=== PATIENT | female | born 1990 | race Caucasian/White ===

== ENCOUNTER 2016-09-18 21:16 | Emergency (ER) | payer MEDICAID ==
[~2016-09-18] VITALS: Ht 162.6 cm; Wt 66.2 kg
[~2016-09-18 21:16] MED LIST: ALBUTEROL-200 PUFFS/ IH; BENTYL20 M1 PO; BENTYL20 MG PO; CALCIUM 600MG+D1 TAB PO; CIPRO 250MG TA250 MG PO; CIPRO 500MG TA500 MG PO; CLINDAMYCIN HC300 MG PO; CORTISPORIN TC10 ML OT; DOXYCYCLINE HY100 M4 PO; FERROUS SULFATE65 MG PO; FLEXERIL10 MG PO; IMURAN50 M1 PO; IRON TABLETS325 MG PO; K-DUR 2020 MEQ PO; KEFLEX 500MG.500 MG PO; LORTAB 5/500 501 TAB PO; MOTRIN 400MG.400 MG PO; NITROFURANTOIN100 M2 PO; NOMEDS; PERCOCET 5/3251 EACH PO; PHENERGAN 25MG.25 M1 PO; PRENATAL PLUS1 TA1 PO; PREVACID 30MG C30 M1 PO; TESSALON PERLE100 M1 PO; TRAMADOL 50MG T50 MG PO; ULTRACET 325 MG1 TAB PO; VOLTAREN75 MG PO; ZITHROMAX Z PA250 MG PO; ZITHROMAX500 MG PO; ZOFRAN4 MG PO; [UNRECOGNIZED DRUG - OTHER]
[2016-09-18 21:35] LABS: URINE BILIRUBIN - DIPSTICK NEGATIVE (NEG); URINE BLOOD TRACE-LYSED (NEG)
[2016-09-18 21:42] LABS: HEMOGLOBIN 13.8 g/dL (12.2-16.2); LYMPH # 3.1 K/mm3 (0.7-4.5); LYMPH % 28.4 % (10-50.0)
[2016-09-18] MEDS ORDERED: ETODOLAC200 MG PO (23:18)
--- NOTE | 2016-09-18 23:19 | Emergency Room Report ---
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 N Clinical Suspician of Infection? N Mental Status: 1 - Regular (Normal Baseline) Sepsis Risk:Low Sepsis Risk Have you (or family members/close friends) recently traveled outside the [place]? N If Yes, where/when: Have you had exposure to infectious disease within the past month? TB? Other? Specify: Source patient, RN notes reviewed, family, RN/MD Exam Limitations no limitations Comment This is a 26-year-old female patient presenting to the emergency room with LEFT lower quadrant abdominal pain, onset 2 days ago. Patient denies any fever, nausea, vomiting, diarrhea. Patient was advised that recent travel or exposure to sick contacts. She has a history of Crohn's disease. ALLERGIES Coded Allergies: Sulfa (Sulfonamide Antibiotics) (Mild, 09/18/16) cefdinir (Mild, 09/18/16) Penicillins (09/18/16) Home Medications Active Scripts CALCIUM CARBONATE/VITAMIN D3 (Calcium 600 + Vit D 200 Tablet) 1 TAB PO BID #60 TAB Prov: 01/01/16 Potassium Chloride (K-Dur) 20 MEQ PO DAILY #5 TER Prov: 01/01/16 Azithromycin (Zithromycin (Z-LORI) 250MG Tab) 250 MG PO DAILY #6 TAB Prov: 11/24/15 NEOMYCIN DENSON/COLIST/HC/THONZON (Cortisporin-Tc Ear Susp) 10 ML OT QID #10 EACH Prov: 11/24/15 Reported Medications Dicyclomine HCl (Bentyl) 20 MG PO QID History Medical History General CAD? No Angina: No [place]: No Hypertension? No Hyperlipidemia? No CHF? No DVT? No PE? No COPD? No Asthma? Yes Anemia? No GERD? Yes Gastric ulcers? No GI Bleed? No Hernia? No Thyroid Problems? No Hypothyroidism? No CVA? No Seizures? No Diabetes? No Renal Insuffiency? No End Stage Renal Disease? No UTI? Yes Stones? No GB Disease: Yes Nephritic Syndrome? No Asplenia? No Hepatitis? No Sickle Cell Disease? No Arthritis? No Migraines? No Cataracts? No Glaucoma? No MRSA? No HIV? No TB? No Anxiety? No Depression? No Cancer? No More? 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 Family History Family Hx Diabetes Yes CAD Yes Hypertension Yes Hyperlipidemia Yes Cancer Yes TB Yes Social History Smoking Hx Smoker: Current Every Day Smoker Tobacco: Yes Type Cigarettes Packs/day < 1 Pack Alcohol Alcohol: No Review of Systems All Other Systems Reviewed and Negative Gastrointestinal abdominal pain (LLQ) Physical Exam Vital Signs Vital Signs Date Time Temp Pulse Resp B/P Pulse O2 O2 Flow FiO2 Ox Delivery Rate 09/18 2335 18 09/18 2334 89 18 113/75 98 09/19 2123 98.3 129 18 129/86 100 General Appearance normal appearance, WD/WN, mild distress Neck normal inspection, non-tender, supple, full range of motion Respiratory Status Yes: trachea midline, chest symmetrical, non tender chest. No: respiratory distress. Lung Sounds bilateral: normal breath sounds, lungs clear. 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 No Comment Upon reevaluation patient appears medically stable, in minimal distress. Advised patient results obtained, as well as need for her to follow-up with her ObGyn within the next 2-3 days. Results/Orders Laboratory Tests 09/18/16 2130: Sodium 141, Potassium 3.6, Chloride 103, Carbon Dioxide 29, BUN 4 L, Creatinine 0.7, Estimated Creat Clear 127, Estimated GFR (MDRD) 101, Glucose 105, Calcium 9.0, Total Bilirubin 0.3, AST 14 L, ALT 20, Alkaline Phosphatase 98, Total Protein 8.1, Albumin 3.9, Globulin 4.2 H, Albumin/Globulin Ratio 0.9 L, Amylase 99, Lipase 193, WBC 10.8, RBC 4.17 L, Hgb 13.8, Hct 41.8, MCV 100.3 H, RDW 12.2, Plt Count 348, MPV 5.6 L, Gran % 65.7, Gran # 7.1, Lymphocytes % 28.4 , Monocytes % 2.9, Eosinophils % 2.5, Basophils % 0.6, Lymphocytes # 3.1, Monocytes # 0.3, Eosinophils # 0.3, Basophils # 0.1, PUBS MCHC 32.9, MCH 33.0 H 09/18/162119: Urine Color YELLOW, Urine Appearance CLEAR, Urine pH 6.0, Ur Specific [place] <= 1.005, Urine Protein NEGATIVE, Urine Ketones NEGATIVE, Urine Blood TRACE-LYSED, Urine Nitrate NEGATIVE, Urine Bilirubin NEGATIVE, Urine Urobilinogen 0.2, Ur Leukocyte Esterase NEGATIVE, Urine RBC NONE, Urine WBC OCC, Ur Squamous Epith Cells 10-20, Urine Bacteria 1+, Urine Other TRANITIONAL EPI=OCC, Urine Glucose NEGATIVE Current Medication Orders Sig/Tanna Start time Last Medication Dose Route Stop Time Status Admin Hydromorphone HCl 1 MG ONCE ONE 09/18 2329 DC 09/18 IV 09/18 2330 233 Ondansetron HCl 4 MG ONCE ONE 09/18 2329 DC 09/18 IV 09/18 2330 2334 Tramadol HCl 1 LORI ONCE ONE 09/18 2329 DC 09/18 PO 09/18 2330 233 Ondansetron HCl 0 .STK-MED ONE 09/18 2326 DC .ROUTE Tramadol HCl 0 .STK-MED ONE 09/18 2326 DC PO Hydromorphone HCl 0 .STK-MED ONE 09/18 2325 DC .ROUTE Iopamidol 75 ML ONCE ONE 09/18 2244 DCD 09/18 IV 09/18 Sodium Chloride 10 ML ONCE ONE 09/18 2244 DCD 09/18 IV 09/18 Sodium Chloride 10 ML PRN PRN 09/18 2144 DCD IV 09/19 2133 Sodium Chloride 1,000 ML .STK-MED ONE 09/18 2136 DC IV Sodium Chloride 1,000 ML .Q1H1M 09/18 2129 DC 09/18 IV 09/18 Sodium Chloride 10 ML PRN PRN 09/18 2129 DCD IV 09/19 2124 Orders Procedure Date/time Status DIET-NOTHING BY MOUTH 09/[address] ABD & PELVIS W/ CONTRAST 09/18 2204 Active IV SALINE LOCK 09/[address] ABD/PELVIS REQ 09/18 2125 Complete URINALYSIS/COMPLETE 09/18 2124 Complete URINE 09/18 2124 Complete LIPASE 09/18 2124 Complete CBC WITH AUTO DIFF 09/18 2124 Complete CHEM 12 PROFILE 09/18 2124 Complete AMYLASE 09/18 2124 Complete XRAY/CT/US XRAY/CT/US CT abdomen, pelvis CT interpretation by discussed w/radiologist CT Results abnormal Comment See radiologist's report Departure Departure Time of Disposition 2313 Disposition DC Home or Self Care(routine) Clinical Impression Primary Impression: Left ovarian cyst Condition STABLE Referrals Rocco HENDRICKS,Sergo Hernandez MD,Suraj Grant Patient Instructions DI for Ovarian Cyst Additional Instructions Please follow-up with one of the gynecologists listed above, within the next 2-3 days. Discharge Counseling Counseled pt/family regarding diagnosis, test results, medications/RX, home care, follow up needs Comment Please follow-up with one of the gynecologists listed above, within the next 2-3 days. Prescriptions Current Visit Scripts Etodolac 200 MG PO BID PRN pain #20 CAP ED Critical Care Critical Care No at 1890
[2016-09-18 23:34] VITALS: BP 113/75
--- NOTE | 2016-09-20 10:34 | RADIOLOGY REPORT PS360 ---
CT ABD PELVIS W/ CONTRAST ORDERING PHYSICIAN : Jorge Stanton MD PATIENT AGE: 26 years GENDER: Female INDICATION: LLQ ABD [id number] with abdominal pain TECHNIQUE: Helical CT scans in the pelvis with IV contrast. 75 cc [id number] utilized but no oral contrast COMPARISON made to previous CT abdomen pelvis 09/13/2015 FINDINGS Lung bases clear with no acute findings. Heart normal size. Abdomen. Liver unremarkable. Spleen unremarkable. Pancreas satisfactory. Generous size but this reflects young patient. Unchanged as prior studies. Cholecystectomy. No biliary ductal dilatation. Kidneys. No urinary tract calculi. Mild fullness of the right pelvicalyceal system and proximal right ureter compared to the left, but this most likely reflects compression of the right ureter as it enters the pelvis from crossing iliac vessels Pelvis. Anteverted uterus with generous endometrial stripe. Variable density within the endometrium. Question 1.5-2 cm fibroid posterior wall body of uterus. Recommend pelvic ultrasound to correlate There is also a generous 4.2cm height x 2.8 cm AP left ovary. This includes what appears to be a nearly 4 cm cyst Right ovary normal size 2.5 cm with smaller 1.2 cm cyst. Appendix identified and normal. Large bowel, generous stool throughout the colon most prominent increase stool is seen at the sigmoid colon and left colon.. Moderate constipation . Osseous structures intact IMPRESSION-- 1. Mildly enlarged left ovary. It measures up to 4.2 cm and contains a 4 x 2.5 cm left ovarian cyst. Since previous study. 2. Thickened inhomogeneous endometrium. Question, possible 1.5-2 cm fibroid at the posterior myometrium 3. Given the above findings and consider follow-up pelvic ultrasound. 4. Prominent stool is seen at the redundant sigmoid colon with generous stool throughout the left colon. Reflects constipation. I doubt colitis
== END 2016-09-19 00:01 | disposition home or self-care (01) ==
LOC: ER 21:16
PROVIDERS: Emergency Medicine
DX: N83.202 Unspecified ovarian cyst, left side (principal); Z72.0 Tobacco use
CPT/HCPCS: J2405; Q9967

== ENCOUNTER 2016-10-23 07:17 | Day surgery (SDC) | payer MEDICAID ==
[~2016-10-23] VITALS: Ht 162.6 cm; Wt 74.4 kg
[~2016-10-23 07:17] MED LIST changes: +ETODOLAC200 MG PO
[2016-10-23 07:53] LABS: LYMPH # 2.1 K/mm3 (0.7-4.5); LYMPH % 28.3 % (10-50.0)
[2016-10-23 07:58] LABS: BUN 6 mg/dL (7-18); GFR (ESTIMATED) 101 ML/MIN (59-); HEMOGLOBIN 12.3 g/dL (12.2-16.2)
--- NOTE | 2016-10-23 09:31 | Operative Note ---
Procedure/Operative Record Procedure Date of procedure: 10/23/16 Pre-Op Dx: Desire for sterilization Post-Op Dx: Desire for sterilization Procedure performed: Laparoscopic bilateral salpingectomy Surgeon: Dr. Sergo Valiente Retail Sales Vitamin Consultant(s): None Anesthesia: Josee Amaro EBL (ml): 25 Clinical note: She is a 26-year-old 3 para 2 aborta 1 who expressed desire for sterilization. The risks and benefits as well as the irreversibility of bilateral salpingectomy were discussed with the patient prior to surgery. Operative findings: She had a normal-appearing anteverted uterus. The tubes appeared normal. The ovaries were seen and appeared normal.she had described a previous LEFT sided cyst and this had resolved. There was no fluid in the pelvis. The appendix was seen and appeared normal the upper abdomen was normal. The gallbladder had previously been removed. Operative note: She was taken to the operating room where general anesthesia was found be adequate. She was prepped and draped in normal sterile fashion in the semi- lithotomy position. A weighted speculum was placed in the vagina and the anterior lip of the cervix was grasped with a tenaculum. I then placed a Hannah uterine manipulator within the uterine cavity and insufflated the balloon. I injected approximately 10 mL of 0.5 percent ropivacaine around the umbilicus, made a small incision here and inserted a Veress needle into the abdominal cavity. The abdominal cavity was then insufflated with carbon dioxide gas to a pressure of 20 mmHg. I then inserted a 5 mm trocar under direct vision. I injected through and through at the pubic hairline, made a small incision here and inserted an 8 mm trocar under direct vision. I identified the inferior epigastric arteries on the LEFT side, went lateral to these and injected through and through. I made a small skin incision and then inserted a 5 mm trocar in the LEFT lower quadrant under direct vision. The patient's RIGHT tube was grasped close to the cornea and I cut across the tube with Harmonic scalpel. I then grasped the distal end of the tube and using Harmonic scalpel I cut along the meso salpinx. The tube was then removed through the 8 mm trocar site. This was similarly performed on the patient's LEFT side. After inspecting the entire pelvic cavity I then injected approximately 20 mL of 0.5 percent ropivacaine into the pelvis. The secondary trochars were then removed under direct vision and the gas out of the abdomen. The primary trocar was then removed. The 8 mm trocar site was closed deeply with 2-0 Vicryl suture followed by interrupted subcu care 4-0 Monocryl suture. The 5 mm trocar sites were closed with subcuticular 4-0 Monocryl suture. Sterile dressings were applied. The patient tolerated the procedure well and was taken to the recovery room in excellent condition. All sponge instrument and needle counts were correct. Estimated blood loss was less than 25 mL. Conplications: None Specimens: Bilateral fallopian tubes. at [id number]
--- NOTE | 2016-10-23 09:36 | Anesthesia Record ---
Anesthesia Record Part II Discharge time: 1000 Destination: Same day surgery PACU nurse assessment review? Yes Patient is: Awake, Stable Anesthesia complications? No at 0949
--- NOTE | 2016-10-23 09:36 | Anesthesia Record ---
Anesthesia Record Part I Total IV fluids: 800 EBL (ml): 25 Urine Output: 275 Units of blood given: 0 B/P: 120/69 % SaO2: 94 Pulse: 101 Resps: 16 Temp: 98.7 Patient is: Awake, Stable Stable to PACU at: 0930 at 0935
[2016-10-23 15:04] VITALS: BP 113/68
== END 2016-10-23 11:00 ==
LOC: SDC 07:17
PROVIDERS: Nurse Practitioner Obstetrics & Gynecology
PROC: 0UT74ZZ Resection of Bilateral Fallopian Tubes, Percutaneous Endoscopic Approach (ICD-10-PCS; principal; 2016-10-23 08:45)
DX: Z30.2 Encounter for sterilization (principal)
CPT/HCPCS: J2405

== ENCOUNTER 2017-01-26 16:48 | Emergency (ER) | payer MEDICAID ==
[~2017-01-26] VITALS: Ht 162.6 cm; Wt 68.5 kg
[2017-01-26] MEDS ORDERED: MERCAPTOPURINE PO (17:06)
--- NOTE | 2017-01-26 17:17 | Emergency Room Report ---
History of Present Illness Time Seen by [id number] Presenting Problem in Triage Pt arrived:Walked Presenting Problem:STOMACH PAIN, NAUSEA, AND VOMITING SINCE SUNDAY MORNING. 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 N Clinical Suspician of Infection? N Mental Status: 1 - Regular (Normal Baseline) Sepsis Risk:Low Sepsis Risk Have you (or family members/close friends) recently traveled outside the [place]? N If Yes, where/when: Have you had exposure to infectious disease within the past month? N TB? Other? Specify: Patient with cramping diarrhea for the last few days, a little bit of blood in her stool this morning, but not this afternoon; very diffuse abdominal pain, no fever, no vomiting. Sees GI at for Crohn's disease and feels this is a flare up. ALLERGIES Coded Allergies: Sulfa (Sulfonamide Antibiotics) (Mild, 11/04/16) cefdinir (Mild, 11/04/16) Penicillins (11/04/16) Home Medications Active Scripts CALCIUM CARBONATE/VITAMIN D3 (Calcium 600 + Vit D 200 Tablet) 1 TAB PO BID #60 TAB Prov: 01/01/16 Reported Medications Dicyclomine HCl (Bentyl) 20 MG PO QID Mercaptopurine (Mercaptopurine 50MG Tablet) 50 MG PO DAILY #30 History Medical History General CAD? No Angina: No [place]: No Hypertension? No Hyperlipidemia? No CHF? No DVT? No PE? No COPD? No Asthma? Yes Anemia? No GERD? Yes Gastric ulcers? No GI Bleed? No Hernia? No Thyroid Problems? No Hypothyroidism? No CVA? No Seizures? No Diabetes? No Renal Insuffiency? No End Stage Renal Disease? No UTI? Yes Stones? No GB Disease: Yes Nephritic Syndrome? No Asplenia? No Hepatitis? No Sickle Cell Disease? No Arthritis? No Migraines? No Cataracts? No Glaucoma? No MRSA? No HIV? No TB? No Anxiety? No Depression? No Cancer? No More? 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 TUBES TIED Family History Family Hx Diabetes Yes CAD Yes Hypertension Yes Hyperlipidemia Yes Cancer Yes TB No Social History Smoking Hx Smoker: Current Every Day Smoker Tobacco: Yes Type Cigarettes Packs/day < 1 Pack Alcohol Alcohol: No Review of Systems All Other Systems Reviewed and Negative Gastrointestinal see HPI Physical Exam Vital Signs Vital Signs Date Time Temp Pulse Resp B/P Pulse O2 O2 Flow FiO2 Ox Delivery Rate 01/26 1824 81 18 104/70 100 01/26 1701 98.9 104 18 118/76 96 General Appearance normal appearance, WD/WN, no apparent distress Eye Exam - bilateral eye normal exam, bilateral eye PERRL, bilateral eye EOMI Neck normal inspection, non-tender, supple, full range of motion Respiratory Status Yes: trachea midline, chest symmetrical, non tender chest. No: respiratory distress, tender on palpation, use of accessory muscles, pain on inspiration, pain on expiration, productive cough, non productive cough. Lung Sounds bilateral: normal breath sounds, lungs clear. Cardiovascular normal exam, regular rate/rhythm, no peripheral edema, no gallop, no JVD, no murmur, no rub, normal peripheral pulses Gastrointestinal normal bowel sounds, normal exam, soft, no organomegaly, no pulsatile mass, no guarding, no rebound, tenderness (mild tenderness BUQ) Strength 5 Upper Ext (L), 5 Upper Ext (R), 5 Lower Ext (L), 5 Lower Ext (R) Neurologic alert, normal exam, no motor/sensory deficits, oriented x 3 Glascow Coma Scale Glascow Coma Scale Response Value EYE response: 4 Spontaneously 4 MOTOR response: 6 OBEYS 6 VERBAL response: 5 Oriented & Converses 5 Total 15 Skin intact, normal color, warm/dry Medical Decision Making LABS/Meds/Orders Pt receiving controlled substance in ED? No Results/Orders Laboratory Tests 01/26/17 1740: Sodium 140, Potassium 3.3 L, Chloride 105, Carbon Dioxide 28, BUN 5 L, Creatinine 0.7, Estimated Creat Clear 132, Estimated GFR (MDRD) 101, Glucose 105 , Calcium 8.8, Total Bilirubin 0.2, AST 14 L, ALT 15, Alkaline Phosphatase 99, Total Protein 7.1, Albumin 3.5, Globulin 3.6 H, Albumin/Globulin Ratio 1.0 L, Lipase 136, WBC 7.5, RBC 4.07 L, Hgb 13.5, Hct 40.2, MCV 98.8 H, RDW 12.7, Plt Count 300, MPV 6.7 L, Gran % 75.8, Gran # 5.7, Lymphocytes % 15.7, Monocytes % 4.6, Eosinophils % 3.4, Basophils % 0.5, Lymphocytes # 1.2, Monocytes # 0.4, Eosinophils # 0.3, Basophils # 0.0, PUBS MCHC 33.5, MCH 33.1 H 01/26/17 1720: Urine Color YELLOW, Urine Appearance CLEAR, Urine pH 6.0, Ur Specific [place] 1.015, Urine Protein NEGATIVE, Urine Ketones NEGATIVE, Urine Blood 2+ H, Urine Nitrate NEGATIVE, Urine Bilirubin NEGATIVE, Urine Urobilinogen 0.2, Ur Leukocyte Esterase NEGATIVE, Urine RBC 5-10, Urine WBC 3-5, Ur Squamous Epith Cells 5-10, Urine Bacteria 3+, Urine Mucus 4+, Urine Glucose NEGATIVE Current Medication Orders Sig/Tanna Start time Last Medication Dose Route Stop Time Status Admin Sodium Chloride 1,000 ML .Q1H1M 01/26 1800 AC 01/26 IV 01/26 1900 1814 Sodium Chloride 10 ML PRN PRN 01/26 1800 AC IV 01/27 1751 Sodium Chloride 1,000 ML .STK-MED ONE 01/26 1753 DC IV Promethazine HCl 0 .STK-MED ONE 01/26 1752 DC .ROUTE Promethazine HCl 12.5 MG ONCE ONE 01/26 1745 DC 01/26 IV 01/26 1746 1813 Sodium Chloride 10 ML PRN PRN 01/26 1745 AC IV 01/27 1740 Sodium Chloride 25 ML ONCE ONE 01/26 1745 DC IV 01/26 1759 Orders Procedure Date/time Status DIET-NOTHING BY MOUTH 01/[address] ABD & PELVIS W/O CONTRAST 01/[address] ABD/PELVIS REQ 01/26 174 Active IV SALINE LOCK 01/26 174 Active LIPASE 01/26 174 Complete CBC WITH AUTO DIFF 01/26 174 Complete CHEM 12 PROFILE 01/26 1741 Complete CULTURE, URINE 01/26 172 Active URINALYSIS/COMPLETE 01/26 1710 Complete URINE 01/26 1710 Complete XRAY/CT/US XRAY/CT/US CT abdomen, pelvis CT interpretation by reviewed by me ([facility] report reviewed) Time results known: 1846 CT Results c/w Crohn's colitis ascending and transverse colon Departure Departure Time of Disposition 1847 Disposition DC Home or Self Care(routine) Clinical Impression Primary Impression: Crohn's colitis Qualifiers: Digestive disease complication type: without complication Qualified Code: K50.10 - Crohn's disease of large intestine without complications Condition STABLE Referrals Mag Weiner Patient Instructions DI for Crohn's Disease Flare Discharge Counseling Counseled pt/family regarding diagnosis, test results, medications/RX, home care, follow up needs Prescriptions Current Visit Scripts Prednisone (Prednisone 10MG) 10 MG PO BID #20 TAB Ciprofloxacin HCl (Cipro 500MG TAB) 500 MG PO BID #20 TAB PROMETHAZINE HCL (Phenergan 25MG Tab (Geq)) 12.5 MG PO Q6HP PRN N/V #10 TAB ED Critical Care Critical Care No at 1852
[2017-01-26 17:24] LABS: URINE BLOOD 2+ (NEG)
[2017-01-26 17:25] LABS: URINE BILIRUBIN - DIPSTICK NEGATIVE (NEG)
--- OUTSIDE RECORDS SUMMARY | 2017-01-26 17:27 | External Medical Summary Rpt ---
Author Author , JACINTO CASEY Address Unknown Phone .fypio Care Team Providers Care Tax Form Preparer Name Role Phone A Sonali AGRAWAL MD PSC, Pat Unavailable Unavailable Sonali AGRAWAL MD PSC ALLRAN JR BOB, ALLRAN Unavailable Unavailable JR BOB ARNOLD ARLNEE, ARNOLD Unavailable Unavailable ARLENE REESE AAR, REESE Unavailable Unavailable AAR BEINEKE, BEINEKE Unavailable Unavailable WELLS TER, WELLS TER Unavailable Unavailable BESSON HATTIE, BESSON Unavailable Unavailable HATTIE PATEL ALL, PAETL ALL Unavailable Unavailable [facility] Unavailable Unavailable SERVICE, [facility] Unavailable [facility]available [facility] CHIPPS ANAIS & Unavailable Unavailable DUBILIER, [facility] DUBILIER LILO NAGY Unavailable Unavailable NAGY DER, NAGY Unavailable Unavailable AURE FINE, Unavailable Unavailable AURE NAGY [facility] Unavailable Unavailable [facility], [facility] Unavailable Unavailable [facility] [place] PORFIRIO, PORFIRIO Unavailable Unavailable PORFIRIO KARLOS, Unavailable Unavailable PORFIRIO KARLOS PORFIRIO KARLOS, Unavailable Unavailable PORFIRIO KARLOS [facility] Unavailable Unavailable BEHAVIORAL, [facility] Unavailable Unavailable [facility] Unavailable Unavailable FI[facility] AM[facility], FIELD AMB Unavailable Unavailable FIELD AMB, FIELD AMB Unavailable Unavailable FRAGNETO, SARBJIT Y, Unavailable Unavailable FRAGNETO, SARBJIT Y Pat MARIA, CROW, A Unavailable Unavailable M JR PARKER WATKINS, Unavailable Unavailable JR PARKER WATKINS KARY ANABELL, KARY Unavailable Unavailable ANABELL KARY ANABELL, KARY Unavailable Unavailable ANABELL DEBORAH RICARDO C, Unavailable Unavailable DEBORAH RICARDO C [facility] GUERRERO DAYNE, GUERRERO DAYNE Unavailable Unavailable MICHELLE ALMENDAREZ F, Unavailable Unavailable MICHELLE ALMENDAREZ HARPEL NESTOR, HARPEL Unavailable Unavailable NESTOR HARPEL NESTOR, HARPEL Unavailable Unavailable NESTOR LALA SCO, Unavailable Unavailable LALA SCO [facility] Unavailable Unavailable INC, [facility] Unavailable Unavailable HOSPITAL P, [facility], Unavailable Unavailable [facility] MELGOZA TRA, MELGOZA TRA Unavailable Unavailable [facility], [facility] KILPELA JEA, KILPELA Unavailable Unavailable [facility] Unavailable Unavailable [facility], [facility] Unavailable Unavailable [facility] Un[facility], Unavailable Unavailable [facility] VILLAFUERTE, VILLAFUERTE Unavailable Unavailable JACOB MATT, JACOB Unavailable Unavailable MATT JACOB, JERAD B, Unavailable Unavailable JACOB, JERAD B [facility] Unavailable Unavailable SERVICES, [facility] Unavailable Unavailable SERVICES, [facility] MELISSA CHI, MELISSA Unavailable Unavailable ARTI RESENDEZ JR LU, Unavailable Unavailable MCVILMA WIN LU ALICIA DMD ADVENTISM, ALICIA Unavailable Unavailable DMD ADVENTISM ALICIA DMD ADVENTISM, ALICIA Unavailable Unavailable DMD [facility]VENTISM MIDBOE-HENRIK, WILBUR Unavailable Unavailable R, MIDBOE-HENRIK, WILBUR R NIEVES LU, NIEVES LU Unavailable Unavailable LUIS HATTIE, LUIS HATTIE Unavailable Unavailable LUIS HATTIE, LUIS HATTIE Unavailable Unavailable [facility], Un[facility] Unavailable [facility], [facility] ISLAS, ANGELIC F, Unavailable Unavailable ISLAS, ANGELIC F PINEDA KHANG, PINEDA KHANG Unavailable Unavailable PICKLESIMER JR JACINTO, Unavailable Unavailable PICKLESIMER JR JACINTO RENUSCH, RENUSCH Unavailable Unavailable RENUSCH ASHLEY, RENUSCH Unavailable Unavailable ASHLEY SOTINGEANU, Unavailable Unavailable SOTINGEANU SOTINGEANU JONI, Unavailable Unavailable SOTINGEANU JONI [facility] JANN, JANN Unavailable Unavailable STUFFELBEAM, Unavailable Unavailable STUFFELBEAM MANUEL HUIZAR, MANUEL Unavailable Unavailable BELLO JONES, Unavailable Unavailable BELLO VELASQUEZ RUDOLPH M, Unavailable Unavailable ADRIÁN MEYERS [facility] Unavailable Unavailable HOSPITALS, [facility] Unavailable Unavailable ASSIST, [facility] ASSIST [facility], Unavailable Unavailable [facility] # Unavailable Unavailable [id number], [facility] # [id number] [id number] # Unavailable Unavailable [id number], [id number] # [id number] WEHRMAN III LU, Unavailable Unavailable WEHRMAN III LU WEHRMAN III, ERIKA, Unavailable Unavailable WEHRMAN III, ERIKA WELLS SHA, WELLS SHA Unavailable Unavailable BECKY OSCAR, Unavailable Unavailable BECKY AGRAWAL A, TANJA A Unavailable Unavailable Pat AGRAWAL C, TANJA, Unavailable Unavailable A C Purpose Continuity of Care Document - 06-29-2009 through 2016 Problems Code Diagnosis DOS Provider Status [id number] CROHNS 11-24-2016 [place] DISEASE [facility] WITHOUT HOSPITALS COMPLICATIO NS 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 DISEASE PHYSICIANS LARGE ASSIST INTESTINE W/O COMP [id number] UNSPECIFIED 11-04-2016 [facility] CYST RIGHT INC SIDE N939 ABNORMAL 11-04-2016 [facility]TER[facility], VAGINAL PLLC BLEEDING UNSPECIFIED R102 PELVIC AND 11-04-2016 [facility] PERINEAL [facility], PAIN PLLC R1030 LOWER 11-04-2016 [facility] UNSPECIFIED Z0189 ENCOUNTER 10-23-2016 [facility] SPECIFIED SPECIAL EXAMINATION S Z302 ENCOUNTER 10-23-2016 [facility] FOR PHYSICIANS STERILIZATI GROUP ON N8312 CORPUS 10-02-2016 [facility] LUTEUM CYST PHYSICIANS OF LEFT GROUP OVARY R1032 LEFT LOWER 10-02-2016 [facility] QUADRANT PHYSICIANS PAIN GROUP Z3009 ENCOUNTER 10-02-2016 [facility] OT GENERAL PHYSICIANS GROUP ABSTRACT CHECKER&ADV ICE CONTRACEPT [id number] UNSPECIFIED 09-18-2016 [facility] O[facility]IAN [facility], CYST LEFT PLLC SIDE R109 UNSPECIFIED 09-18-2016 [facility] R938 ABNORMAL 09-18-2016 [facility] OT IMAGING ASS SPEC BODY STRCT Z720 TOBACCO USE 09-18-2016 [facility] INC E559 VITAMIN D 07-13-2016 [facility] [id number] CROHNS 07-13-2016 [facility]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 LARGE ASSIST INTESTINE WITH FISTULA E8351 HYPOCALCEMI 01-01-2016 [facility] ORTEGA, [facility] E876 HYPOKALEMIA 01-01-2016 [facility], PLLC R42 DIZZINESS 01-01-2016 [facility], GIDDINESS PLLC [id number] SWIMMERS 11-24-2015 [facility] EAR [facility], BILATERAL PLLC J029 ACUTE 11-24-2015 [facility] PHARYNGITIS [facility], PLLC UNSPECIFIED J72360 UNSPECIFIED 09-13-2015 [facility] ASTHMA [facility] UNCOMPLICAT INC ED R1012 LEFT UPPER 09-13-2015 [facility] QUADRANT [facility], PAIN PLLC J069 ACUTE UPPER 09-05-2015 [facility], RESPIRATORY PLL INFECTION UNSPECIFIED R05 COUGH 09-05-2015 [facility] R12 HEARTBURN 08-30-2015 [facility] Z8719 PERSONAL 08-30-2015 [facility] OTHER DISEASES DIGESTIVE SYSTEM J020 STREPTOCOCC 08-28-2015 [facility] AL PHYSICIANS PHARYNGITIS GROUP K921 MELENA 08-04-2015 [facility] K5900 CONSTIPATIO 06-19-2015 [facility] N PHYSICIANS, UNSPECIFIED PLLC K5909 OTHER 06-19-2015 [facility] CONSTIPATIO [facility] N INC [id number] ADVERSE 06-19-2015 [facility] EFFECT UNS [facility]OS[facility] NARCOTICS INC INITIAL ENCOUNTER R1110 VOMITING 06-04-2015 [facility] UNSPECIFIED [facility] INC R112 NAUSEA WITH 06-04-2015 [facility] UNSPECIFIED IMAGING ASS H6690 OTITIS 06-02-2015 A Sonali AGRAWAL MEDIA [facility] UNSPECIFIED UNSPECIFIED EAR N3000 ACUTE 05-11-2015 A Sonali AGRAWAL CYSTITIS PSC WITHOUT HEMATURIA R300 DYSURIA 05-11-2015 A Sonali AGRAWAL MD PSC 69791 ESOPHAGEAL 12-14-2014 A Sonali AGRAWAL REFLUX PSC 7079 CHRONIC 12-14-2014 A Sonali AGRAWAL ULCER OF [facility] UNSPECIFIED SITE V8533 BODY MASS 12-14-2014 A Sonali AGRAWAL INDEX PSC 33.0-33.9 ADULT V255 INSERTION 10-14-2014 [facility] OF PHYSICIANS [place] [address] THREATENED 09-09-2014 [facility] PREMATURE PHYSICIANS LABOR GROUP ANTEPARTUM 25659 OTH CURRENT 09-09-2014 [facility] MATERNAL [facility] CCE INC W/DELIVERY 650 NORMAL 09-09-2014 [facility] DELIVERY ANESTH OF THE BLUE 55511 FIRST-DEGRE 09-09-2014 [facility] E PERINEAL PHYSICIANS LACERATION GROUP WITH DELIVERY V0251 CARRIER/IDANIA 09-09-2014 [facility] PECTED [facility] CARRIER INC GROUP B STREPTOCOCC V270 OUTCOME OF 09-09-2014 [facility] DELIVERY PHYSICIANS SINGLE GROUP LIVEBORN V221 SUPERVISION 09-02-2014 [facility] OF OTHER PHYSICIANS NORMAL GROUP 79600 OTHER 08-30-2014 [facility] THREATENED [facility]OR, INC ANTEPARTUM 30716 DECR 08-11-2014 [facility] MOVMNTS PHYSICIANS MGMT MOTH GROUP ANTPRTM COND/COMP 54123 ABNORMAL 07-17-2014 [facility] MATERNAL PHYSICIANS GLUCOSE GROUP TOLERANCE ANTEPARTUM V195 FAMILY 07-09-2014 [facility] ANOMALIES 59249 DEHYDRATION 06-29-2014 [facility] INC 490 BRONCHITIS 06-29-2014 [facility] P ACUTE OR CHRONIC 17803 VOMITING 06-29-2014 [facility] P 40571 DIARRHEA 06-29-2014 [facility] P V222 06-29-2014 [facility] P 4660 ACUTE 06-26-2014 [facility] BRONCHITIS [facility] P 36296 ASTHMA, 06-26-2014 [facility] UNSPECIFIED [facility] P UNSPECIFIED STATUS V140 PERSONAL 06-26-2014 [facility] HISTORY OF [facility] ALLERGY TO [facility] P PENICILLIN V1582 PERS HX 06-26-2014 [facility] TOBACCO USE [facility] P HAZARDS HEALTH V220 SUPERVISION 06-22-2014 [facility] OF NORMAL PHYSICIANS FIRST GROUP 94553 OTH CURRENT 06-08-2014 [facility] MAT CONDS [facility] CLASSIFIABL INC E ELSW ANTPRTM 83917 OTHER 03-25-2014 [facility] SPECIFED N EMERGENCY COMPLICATIO PHYS N ANTEPARTUM 6826 CELLULITIS 03-25-2014 [facility] AND ABSCESS N EMERGENCY OF LEG PHYS EXCEPT FOOT 95056 OTHER 03-25-2014 [facility] CONVULSIONS [facility] INC 48146 EXCESS 01-26-2014 [facility] NESTOR GROWTH AFFECT MGMT MOTH ANTPRTM V2889 OTHER 01-19-2014 [facility] NESTOR SPECIFIED SCREENING V7231 ROUTINE 01-19-2014 [facility] NESTOR GYNECOLOGIC AL EXAMINATION 7804 DIZZINESS 11-04-2013 KARY ANABELL AND GIDDINESS 19559 ABDOMINAL 11-04-2013 [facility] PAIN OTHER KARLOS SPECIFIED SITE V4589 OTHER 11-04-2013 POR[facility]IO POSTSURGICA KARLOS L STATUS OTHER 4659 ACUTE URIS 10-07-2013 LUIS HATTIE OF UNSPECIFIED SITE 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 04220 DECREASED 12-14-2011 [facility] 85425 ABDOMINAL 09-04-2011 [place] [facility], SERV GENERALIZED [facility]OUNDATION 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 52819 LATERAL 08-16-2011 [place] EPICONDYLIT COMM[facility]TIY IS OF [facility]ITA V7283 OTHER 08-15-2011 [place] SPECIFIED COMMUNITY PRE-OPERATI HOSPITA VE EXAMINATION 7295 PAIN IN 08-04-2011 [facility] SOFT [facility] TISSUES OF S PLC LIMB 4619 ACUTE 06-17-2011 [facility] SINUSITIS, EMERGENCY UNSPECIFIED SERVICES 7937 NONSPC ABN 05-09-2011 [facility] FINDNG RAD MEDICAL & OTH EXM IMAGING ASS MUSCULSKELT L SYS 8409 SPRAIN&STRA 05-09-2011 [facility] IN UNSPEC EMERGENCY SITE SERVICES SHOULDER&UP PER ARM E8889 UNSPECIFIED 05-09-2011 [facility] 88378 UNSPEC 04-04-2011 Pat FONSECA MD PSC BURSAE&TEND ONS SHOULDER REGION 14418 PAIN IN 03-30-2011 [facility] JOINT, MEDICAL SHOULDER IMAGING ASS REGION 09550 NAUSEA 03-27-2011 [facility] ALONE [facility] 6259 UNSPEC 03-16-2011 [place] [facility] SYMPTOM SERV ASSOC F[facility]AT[facility] W/FEMALE GENITAL ORGANS 6202 OTHER AND 03-07-2011 [facility] UNSPECIFIED MEDICAL OVARIAN IMAGING ASS CYST 6264 IRREGULAR 03-07-2011 [facility]STRUAL [facility] CYCLE INC 6253 DYSMENORRHE 02-26-2011 [facility] A [facility] INC 6268 OTH D/O 02-26-2011 [facility] MENSTRUATIO EMERGENCY N&OTH ABN SERVICES BLEED FE GNT TRACT 50364 NAUSEA WITH 02-13-2011 [place] [facility] VOMIT[facility] SERV FOUND[facility] 7030 INGROWING 02-09-2011 LUIS HATTIE NAIL 8472 LUMBAR 02-09-2011 LUIS HATTIE SPRAIN AND STRAIN 82052 ATROPHIC 02-06-2011 [facility] GASTRITIS ANAIS & WITHOUT DUBILIER MENTION OF HEMORRHAGE 59004 OTHER SPEC 02-06-2011 [place] [facility]STRITIS SERV WITHOUT FOUNDATIO MENTION HEMORRHAGE 5781 BLOOD IN 02-06-2011 [place] [facility] STOOL [facility] 7873 FLATULENCE 02-06-2011 [place] [facility] ERUCTATION SERV AND GAS FOUNDATIO PAIN 90389 ABDOMINAL 02-06-2011 [place] [facility] PA[facility], SERV UNSPECIFIED FOUNDATIO SITE 7231 CERVICALGIA 01-30-2011 [facility] 7234 BRACHIAL 01-30-2011 [facility] NEURITIS OR [facility] HOS[facility] INC RADICULITIS NOS 35585 PAIN IN 01-23-2011 [facility] JO[facility], EMERGENCY FOREARM SERVICES 71355 PAIN IN 01-23-2011 [facility] JOINT, HAND MEM HOS[facility] INC 29594 SPRAIN AND 01-23-2011 [facility] STRAIN OF UNSPECIFIED SITE OF WRIST 27111 UNSPECIFIED 12-27-2010 Pat AGRAWAL MD PSC CONJUNCTIVI TIS 3829 UNSPECIFIED 12-11-2010 [facility]Y MEDIA SERVICES 5210 DENTAL 12-08-2010 [facility] DMD CARIES [facility] 45761 ABDOMINAL 11-24-2010 [facility], MEDICAL PERIUMBILIC IMAGING ASS 7242 LUMBAGO 09-27-2010 Pta AGRAWAL MD PSC 7245 UNSPECIFIED 09-22-2010 [facility] BACKACHE EMERGENCY SERVICES 7241 PAIN IN 09-14-2010 [facility] THORACIC [facility] SPINE IMAGING ASS 77019 OTHER CHEST 09-14-2010 [facility] V242 ROUTINE 12-30-2009 [facility] SERV FOLLOW-UP FOUNDATIO 5990 URINARY 12-25-2009 [facility] TRACT EMERGENCY INFECTION SERVICES SITE NOT ASSOCIATES SPECIFIED 81388 PREMATURE 11-09-2009 [facility] RUPTURE SERV MEMBRANES FOUNDATIO DELIVERED 93624 FORCEPS/EXT 11-09-2009 [facility] RACTOR DEL SERV W/O FOUNDATIO INDICATION- DELIVERED V2389 SUPERVISION 11-09-2009 [facility]ICAL OF OTHER SERV HIGH-RISK FOUNDATIO 54316 THREATENED 10-13-2009 [facility] PRE[facility] AMBULANCE LABOR SERVICE UNSPEC EPIS CARE 591 HYDRONEPHRO 10-12-2009 [facility] SIS SERV FOUNDATIO 52489 UNSPECIFIED 10-12-2009 [facility] RENAL DISEASE 04517 INFECTIONS 09-27-2009 [facility]ICAL OF SERV GENITOURINA FOUNDATIO RY TRACT ANTEPARTUM 30895 BN&JNT D/O 09-22-2009 [facility] MAT BACK SERV PELVIS&LW FOUNDATIO LIMBS ANTEPARTUM 54726 HYPEREMESIS 09-16-2009 [facility] SERV W/METAB FOUNDATIO DISTURBANCE ANTPRTM 91479 LATE 09-16-2009 [facility] ANTEPARTUM 09946 ABDOMINAL 09-16-2009 [facility] UPPER QUADRANT 93332 ABDOMINAL 09-16-2009 [facility] EPIGASTRIC 0088 INTESTINAL 08-02-2009 [facility] DUE TO OTHER ORGANISM NEC 7802 SYNCOPE AND 06-29-2009 [facility] E83.51 HYPOCALCEMI A 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, BILATERAL J02.9 ACUTE PHARYNGITIS , UNSPECIFIED J06.9 ACUTE UPPER RESPIRATORY INFECTION, UNSPECIFIED N83.202 UNSPECIFIED OVARIAN CYST, LEFT SIDE N93.9 ABNORMAL UTERINE AND VAGINAL BLEEDING, UNSPECIFIED R10.2 PELVIC AND PERINEAL PAIN R10.9 UNSPECIFIED ABDOMINAL PAIN R11.10 VOMITING, UNSPECIFIED R42 DIZZINESS AND GIDDINESS Medications Na ND Rx Da Fi Fi Am Da Di Ph RX Ph St me C No te ll ll ou ys ag ar # ys at rm s nt no ma ic us Or Da si cy ia de te s n re d ## 06 07 30 30 00 WA Ac ## -2 -2 .0 00 L- ti ## 3- 8- 00 08 MA ve ## 20 20 84 RT ## 17 17 00 # 40 PH AR MA CY #5 91 DI 00 06 07 12 30 00 WA Ac CY 52 -2 -2 0. 00 L- ti CL 71 3- 8- 00 07 MA ve OM 28 20 20 0 49 RT IN 20 17 17 53 E 1 45 PH 20 AR MA MG CY TA #5 BL 91 ET DI 00 05 06 12 30 00 RI Ac CY 37 -2 -2 0. 00 TE ti CL 81 3- 3- 00 01 ve OM 62 20 20 0 18 AI IN 00 17 17 51 D E 1 50 PH 20 AR MA MG CY TA #3 BL 93 ET 8 ME 00 05 06 30 30 00 RI Ac RC 05 -2 -2 .0 00 TE ti AP 44 3- 3- 00 01 ve TO 58 20 20 18 AI PU 11 17 17 51 D RI 1 49 PH NE AR MA 50 CY MG #3 93 TA 8 BL ET RA 11 05 06 30 30 00 RI Ac 82 -1 -0 .0 00 TE ti 25 0- 9- 00 01 ve TA 11 20 20 18 AI NE 21 17 17 33 D N 0 68 PH D3 AR MA 2, CY 00 0 #3 UN 93 IT 8 SF GL HY 00 04 06 [address] 40 -2 -0 .0 00 TE ti OC 60 8- 2- 00 01 ve OD 12 20 20 18 AI ON 40 17 17 19 D -A 1 58 PH CE AR TA MA NE CY NO PH #3 93 7. 8 5- 32 5 DI 00 04 05 12 30 00 RI Ac CY 37 -2 -2 0. 00 TE ti CL 81 3- 6- 00 01 ve OM 62 20 20 0 17 AI IN 00 17 17 66 D E 1 07 PH 20 AR MA MG CY TA #3 BL 93 ET 8 OX 13 04 05 30 3 00 CL Ac YC 10 -2 -2 .0 00 IN ti OD 70 4- 6- 00 00 IC ve ON 04 20 20 42 E- 40 17 17 89 PH AC 1 85 AR ET MA AM CY IN OP HE N 5- 32 5 IN 65 04 05 30 5 00 RI Ac OM 16 -2 -2 .0 00 TE ti ET 20 0- 6- 00 01 ve ARRIAGA 52 20 20 18 AI ZI 11 17 17 07 D NE 0 53 PH AR 25 MA CY MG #3 TA 93 BL 8 ET ET 60 03 04 20 10 00 WA Ac OD 50 -2 -2 .0 00 L- ti OL 50 1- 1- 00 07 MA ve AC 03 20 20 47 RT 90 17 17 75 20 1 89 PH 0 AR MG MA CY CA PS #5 UL 91 E DI 00 03 04 12 30 00 RI Ac CY 37 -2 -2 0. 00 TE ti CL 81 2- 1- 00 01 ve OM 62 20 20 0 17 AI IN 00 17 17 66 D E 1 07 PH 20 AR MA MG CY TA #3 BL 93 ET 8 IN 10 02 03 30 7 00 RI Ac OM 70 -2 -3 .0 00 TE ti ET 20 7- 1- 00 01 ve ARRIAGA 00 20 20 17 AI ZI 30 17 17 16 D NE 1 50 PH AR 25 MA CY MG #3 TA 93 BL 8 ET CI 00 02 03 20 10 00 RI Ac IN 14 -1 -2 .0 00 TE ti OF 39 7- 4- 00 01 ve LO 92 20 20 17 AI XA 80 17 17 16 D CI 1 47 PH N AR HC MA L CY 50 0 #3 MG 93 8 TA B PH 42 02 03 30 10 00 RI Ac EN 19 -1 -2 .0 00 TE ti AZ 20 7- 4- 00 01 ve OP 80 20 20 17 AI YR 20 17 17 16 D ID 1 48 PH IN AR E MA 20 CY 0 MG #3 93 TA 8 B IN 10 02 03 30 7 00 RI Ac OM 70 -1 -2 .0 00 TE ti ET 20 7- 4- 00 01 ve ARRIAGA 00 20 20 17 AI ZI 30 17 17 16 D NE 1 50 PH AR 25 MA CY MG #3 TA 93 BL 8 ET DI 00 02 03 12 30 00 RI Ac CY 37 -2 -2 0. 00 TE ti CL 81 2- 4- 00 01 ve OM 62 20 20 0 17 AI IN 00 17 17 23 D E 5 99 PH 20 AR MA MG CY TA #3 BL 93 ET 8 64 02 03 4. 28 00 RI Ac T 38 -1 -1 00 00 TE ti D2 00 3- 7- 0 01 ve 73 20 20 16 AI 1. 70 17 17 72 D 25 6 16 PH AR MG MA CY (5 0, #3 00 93 0 8 UN IT ) AZ 68 02 03 90 30 00 RI Ac AT 46 -1 -1 .0 00 TE ti HI 20 0- 7- 00 01 ve OP 50 20 20 16 AI RI 20 17 17 65 D NE 1 33 PH AR 50 MA CY MG #3 TA 93 BL 8 ET DI 00 01 03 12 30 00 RI Ac CY 37 -2 -0 0. 00 TE ti CL 81 6- 3- 00 01 ve OM 62 20 20 0 16 AI IN 00 17 17 91 D E 5 51 PH 20 AR MA MG CY TA #3 BL 93 ET 8 AZ 68 01 02 90 30 00 RI Ac AT 46 -1 -1 .0 00 TE ti HI 20 2- 7- 00 01 ve OP 50 20 20 16 AI RI 20 17 17 65 D NE 1 33 PH AR 50 MA CY MG #3 TA 93 BL 8 ET 64 01 02 4. 28 00 RI Ac T 38 -1 -1 00 00 TE ti D2 00 7- 7- 0 01 ve 73 20 20 16 AI 1. 70 17 17 72 D 25 6 16 PH AR MG MA CY (5 0, #3 00 93 0 8 UN IT ) RA 11 01 02 30 30 00 RI Ac 82 -1 -1 .0 00 TE ti 25 7- 7- 00 01 ve TA 11 20 20 16 AI NE 21 17 17 72 D N 0 19 PH D3 AR MA 2, CY 00 0 #3 UN 93 IT 8 SF GL DI 00 12 01 12 30 00 RI Ac CY 37 -2 -2 0. 00 TE ti CL 81 8- 7- 00 01 ve OM 62 20 20 0 16 AI IN 00 16 17 43 D E 1 56 PH 20 AR MA MG CY TA #3 BL 93 ET 8 ## 02 01 30 30 00 WA Ac ## -0 -0 .0 00 L- ti ## 8- 9- 00 08 MA ve ## 20 20 83 RT ## 16 17 32 # 54 PH AR MA CY #5 91 TR 65 10 10 0 24 6 WA 44 WR Ac AM 16 -2 -2 .0 L- 97 IG ti AD 20 5- 5- 00 MA 15 HT ve OL 61 20 20 RT 1 -A 71 11 11 AR CE 0 PH DY TA AR C NE MA NO CY PH # N 37 10 .5 05 -3 91 25 DI 00 08 10 5 90 30 WA 71 PE Ac CY 52 -1 -1 .0 L- 30 NA ti CL 71 5- 8- 00 MA 98 ve OM 28 20 20 RT 0 ADRIANO IN 20 11 11 IS E 1 PH R 20 AR MA MG CY # TA BL 10 ET 05 91 TR 65 10 10 1 24 6 SD 44 WR Ac AM 16 -0 -1 .0 L- 96 IG ti AD 20 4- 5- 00 MA 66 HT ve OL 61 20 20 RT 5 -A 71 11 11 AR CE 0 PH DY TA AR C NE MA NO CY PH # N 37 10 .5 05 -3 91 25 TR 65 10 10 1 24 6 WA 44 WR Ac AM 16 -0 -0 .0 L- 96 IG ti AD 20 4- 4- 00 MA 66 HT ve OL 61 20 20 RT 5 -A 71 11 11 AR CE 0 PH DY TA AR C NE MA NO CY PH # N 37 10 .5 05 -3 91 25 DI 00 09 09 0 30 15 WA 71 WR Ac CL 78 -2 -2 .0 L- 36 IG ti OF 11 7- 7- 00 MA 70 HT ve EN 78 20 20 RT 9 AC 70 11 11 AR 1 PH DY SO AR C D MA DR CY # 50 10 MG 05 91 TA B NO 00 09 09 0 30 30 WA 71 PE Ac RT 09 -2 -2 .0 L- 36 NA ti RI 30 6- 6- 00 MA 54 ve PT 81 20 20 RT 7 ADRIANO YL 10 11 11 IS IN 1 PH R E AR HC MA L CY 25 # MG 10 05 CA 91 P DI 00 08 09 5 90 30 WA 71 PE Ac CY 52 -1 -1 .0 L- 30 NA ti CL 71 5- 5- 00 MA 98 ve OM 28 20 20 RT 0 ADRIANO IN 20 11 11 IS E 1 PH R 20 AR MA MG CY # TA BL 10 ET 05 91 DI 16 08 08 0 14 7 WA 71 GA Ac CL 57 -2 -2 .0 L- 32 IN ti OF 10 8- 9- 00 MA 92 EY ve EN 20 20 20 RT 5 AC 11 11 11 NE 0 PH CH SO AR AE D MA L EC CY S # 75 10 MG 05 91 TA B IN 37 08 08 1 30 30 WA 88 PE Ac IL 00 -1 -1 .0 L- 18 NA ti OS 00 7- 7- 00 MA 58 ve EC 45 20 20 RT 0 ADRIANO 50 11 11 IS OT 4 PH R C AR 20 MA .6 CY # MG 10 TA 05 BL 91 ET DI 00 08 08 5 90 30 WA 71 PE Ac CY 52 -1 -1 .0 L- 30 NA ti CL 71 5- 5- 00 MA 98 ve OM 28 20 20 RT 0 ADRIANO IN 20 11 11 IS E 1 PH R 20 AR MA MG CY # TA BL 10 ET 05 91 00 08 08 0 30 30 WA 71 MO Ac 37 -1 -1 .0 L- 30 SE ti 80 1- 1- 00 MA 62 S ve 77 [address] 19 11 11 EP 3 PH HE AR N MA A CY # 10 05 91 00 07 07 0 45 15 WA 44 MO Ac 40 -2 -2 .0 L- 95 SE ti 60 6- 6- 00 MA 19 S ve 35 [address] 80 11 11 EP 1 PH HE AR N MA A CY # 10 05 91 IN 00 07 07 0 14 7 WA 71 MO Ac ED 59 -2 -2 .0 L- 28 SE ti NI 15 6- 6- 00 MA 37 S ve SO 44 [address] NE 30 11 11 EP 1 PH HE 20 AR N MA A MG CY # TA BL 10 ET 05 91 MO 65 06 07 0 1. 1 WA 71 PE Ac 64 -2 -2 00 L- 24 NA ti IN 90 7- 1- 0 MA 90 ve EP 20 20 20 RT 1 ADRIANO 17 11 11 IS PO 5 PH R WD AR ER MA CY PA # CK ET 10 05 91 CI 61 06 06 0 5. 6 WA 71 MO Ac IN 31 -2 -2 00 L- 24 SE ti OF 40 8- 8- 0 MA 99 S ve LO 65 [address] XA 60 11 11 EP CI 5 PH HE N AR N 0. MA A 3% CY # EY E 10 DR 05 OP 91 FL 00 06 06 0 16 30 WA 71 RI Ac UT 05 -1 -1 .0 L- 23 SH ti IC 43 6- 6- 00 MA 46 ER ve 27 20 20 RT 1 ON 09 11 11 RI E 9 PH CH IN AR AR OP MA D CY 50 # MC 10 G 05 SP 91 RA Y BR 60 06 06 0 12 2 SD 71 RI Ac OM 43 -1 -1 0. L- 23 SH ti FE 20 6- 6- 00 MA 46 ER ve D 83 20 20 0 RT 2 DM 70 11 11 RI 4 PH CH CO AR AR UG MA D H CY SY # RU P 10 05 91 ME 00 06 06 0 21 6 WA 71 RI Ac TH 60 -1 -1 .0 L- 23 SH ti YL 34 6- 6- 00 MA 46 ER ve IN 59 20 20 RT 3 ED 31 11 11 RI NI 5 PH CH SO AR AR LO MA D NE CY 4 # MG 10 05 DO 91 SE PK CE 68 06 06 0 40 10 WA 71 GR Ac PH 18 -1 -1 .0 L- 22 AY ti AL 00 2- 3- 00 MA 96 ve EX 12 20 20 RT 2 RO IN 20 11 11 BE 1 PH RT 50 AR B 0 MA MG CY # CA PS 10 UL 05 E 91 CL 63 04 04 0 28 7 SD 71 MC Ac IN 30 -1 -1 .0 L- 15 IL ti DA 40 5- 5- 00 MA 40 VA ve MY 69 20 20 RT 2 IN CI 20 11 11 N 1 PH JA HC AR SO L MA N 15 CY J 0 # MG 10 CA 05 PS 91 UL E IN 68 04 04 0 15 3 SD 71 MC Ac OM 38 -1 -1 .0 L- 15 IL ti ET 20 5- 5- 00 MA 40 VA ve ARRIAGA 04 20 20 RT 0 IN ZI 10 11 11 NE 1 PH JA AR SO 25 MA N CY J MG # TA 10 BL 05 ET 91 ME 00 04 04 0 21 6 SD 71 MC Ac TH 60 -1 -1 .0 L- 15 IL ti YL 34 5- 5- 00 MA 39 VA ve IN 59 20 20 RT 8 IN ED 31 11 11 NI 5 PH JA SO AR SO LO MA N NE CY J 4 # MG 10 05 DO 91 SE PK 00 04 04 0 20 1 SD 44 MC Ac 40 -1 -1 .0 L- 93 IL ti 60 5- 5- 00 MA 07 VA ve 35 20 20 RT 3 IN 70 11 11 5 PH JA AR SO MA N CY J # 10 05 91 00 04 04 0 20 1 WA 44 MC Ac 40 -1 -1 .0 L- 93 IL ti 60 5- 5- 00 MA 07 VA ve 35 20 20 RT 3 IN 70 11 11 5 PH JA AR SO MA N CY # 10 05 91 BA 00 03 03 1 25 18 WA 71 WR Ac CL 83 -2 -2 .0 L- 13 IG ti OF 21 9- 9- 00 MA 11 HT ve EN 02 20 20 RT 6 40 11 11 AR 10 9 PH DY AR C MG MA CY TA # BL ET 10 05 91 00 03 03 0 12 2 WA 44 GR Ac 40 -2 -2 .0 L- 92 AY ti 60 4- 4- 00 MA 60 ve 35 20 20 RT 5 RO 70 11 11 BE 5 PH RT AR B MA CY # 10 05 91 00 03 03 0 15 5 WA 71 GR Ac 37 -2 -2 .0 L- 12 AY ti 80 4- 4- 00 MA 50 ve 75 20 20 RT 9 RO 19 11 11 BE 3 PH RT AR B MA CY # 10 05 91 60 06 06 0 12 3 WA 70 MO Ac 25 -2 -2 0. L- 76 SE ti 80 9- 9- 00 MA 61 S ve 23 [address] 91 10 10 EP 6 PH HE AR N MA A CY # 10 05 91 59 06 06 5 8. 16 WA 70 MO Ac 31 -2 -2 50 L- 76 SE ti 00 9- 9- 0 MA 61 S ve 57 [address] 92 10 10 EP 0 PH HE AR N MA A CY # 10 05 91 00 06 06 2 30 30 WA 70 MO Ac 00 -2 -2 .0 L- 76 SE ti 60 9- 9- 00 MA 61 S ve 11 [address] 73 10 10 EP 1 PH HE AR N MA A CY # 10 05 91 CE 00 06 06 2 30 30 WA 88 MO Ac TI 37 -2 -2 .0 L- 16 SE ti RI 83 9- 9- 00 MA 20 S ve ZI 63 [address] NE 70 10 10 EP 1 PH HE HC AR N L MA A 10 CY # MG 10 TA 05 BL 91 ET CI 55 06 06 0 6. 3 WA 70 WE Ac IN 11 -2 -2 00 L- 76 HR ti OF 10 6- 7- 0 MA 31 MA ve LO 12 20 20 RT 5 N XA 60 10 10 II CI 1 PH I N AR WI HC MA LL L CY IA 25 # M 0 E MG 10 05 TA 91 B DO 00 05 05 0 60 30 WA 88 No Ac CU 53 -1 -1 .0 L- 15 t ti SA 63 2- 3- 00 MA 98 Av ve TE 75 20 20 RT 6 ai 70 10 10 la SO 1 PH bl DI AR e UM MA CY 25 # 0 MG 10 05 CA 91 PS UL E IN 65 05 05 5 30 30 WA 70 No Ac EN 16 -1 -1 .0 L- 70 t ti AT 20 2- 3- 00 MA 56 Av ve AL 66 20 20 RT 5 ai [address] 0 PH bl US AR e MA TA CY BL # ET 10 05 91 IB 68 05 05 0 40 10 WA 70 No Ac UP 64 -1 -1 .0 L- 70 t ti RO 50 2- 3- 00 MA 56 Av ve FE 22 20 20 RT 4 ai N 15 10 10 la 60 9 PH bl 0 AR e MG MA CY TA # BL ET 10 05 91 OX 00 05 05 0 30 2 WA 22 No Ac YC 40 -1 -1 .0 L- 17 t ti OD 60 2- 3- 00 MA 93 Av ve ON 51 20 20 RT 2 ai E- 20 10 10 la AC 1 PH bl ET AR e AM MA IN CY OP # HE N 10 5- 05 32 91 5 NI 00 11 04 6 30 30 WA 70 MA Ac TR 37 -3 -0 .0 L- 61 RC ti OF 83 0- 6- 00 MA 42 UM ve UR 42 20 20 RT 5 AN 20 09 10 NE TO 1 PH RI IN AR AM MA B MO CY NO # -M CR 10 05 10 91 0 MG IN 65 09 04 11 30 30 WA 70 ARRIAGA Ac EN 16 -2 -0 .0 L- 38 LL ti AT 20 9- 6- 00 MA 99 ve AL 66 20 20 RT 7 LI [address] 0 PH R US AR MA TA CY BL # ET 10 05 91 CY 59 03 03 1 30 10 WA 28 GA Ac CL 74 -2 -2 .0 LG 60 MB ti OB 60 9- 9- 00 RE 25 RE ve EN 21 20 20 EN 1 LL ZA 10 10 10 S IN 6 #4 AL IN 89 IS E 2 A 5 # C MG 48 92 TA BL ET FL 00 03 03 0 2. 3 WA 70 MA Ac UC 17 -0 -0 00 L- 61 RC ti ON 25 8- 8- 0 MA 56 UM ve AZ 41 20 20 RT 0 OL 21 10 10 NE E 1 PH RI 15 AR AM 0 MA B MG CY # TA BL 10 ET 05 91 NI 00 11 03 6 30 30 WA 70 MA Ac TR 37 -3 -0 .0 L- 61 RC ti OF 83 0- 7- 00 MA 42 UM ve UR 42 20 20 RT 5 AN 20 09 10 NE TO 1 PH RI IN AR AM MA B MO CY NO # -M CR 10 05 10 91 0 MG IN 65 09 03 11 30 30 WA 70 ARRIAGA Ac EN 16 -2 -0 .0 L- 38 LL ti AT 20 9- 7- 00 MA 99 ve AL 66 20 20 RT 7 LI [address] 0 PH R US AR MA TA CY BL # ET 10 05 91 Results Labs Lab Lab Date Result Refere Interp Status Commen Order Detail nces retati t Range on CHLAMYDIA AND GONORRHEA TESTING (02-25-2013 13:30) Chlamyd NEGATIV complet ia 013 E ed trachom 13:30 atis rRNA [Presen ce] in Unspeci fied specime n by Probe & target amplifi cation method Neisser NEGATIV complet ia 013 E ed gonorrh 13:30 oeae rRNA [Presen ce] in Unspeci fied specime n by Probe & target amplifi cation method CHLAMYDIA AND GONORRHEA TESTING (02-25-2013 13:30) COLLECT NA complet OR 013 ed 13:30 ETHNICI WHITE, complet TY 013 NON-HIS ed 13:30 PANIC KIT 3-14 complet EXPIRAT 013 ed ION 13:30 DATE SYMPTOM NO complet S 013 ed 13:30 REASON INITIAL complet FOR 013 FAMILY ed REQUEST 13:30 PLANNIN G VISIT SPECIME FEMALE complet N 013 ENDOCER ed SOURCE 13:30 VICAL PREGNAN NO complet T 013 ed 13:30 CHART NA complet NUMBER 013 ed 13:30 Chlamyd 08-27-2 Pending complet ia 013 ed trachom 13:30 atis rRNA [Presen ce] in Unspeci fied specime n by Probe & target amplifi cation method Neisser Pending complet ia 013 ed gonorrh 13:30 oeae rRNA [Presen ce] in Unspeci fied specime n by Probe & target amplifi cation method Procedures Procedure DOS Code Location Performer Comment BLOOD 80151 [place] COUNT [facility] COMPLETE E E AUTO&AUTO [facility] DIFRNTL WBC COLLECTIO 33375 [place] N VENOUS 7 [facility] BLOOD E E VENIPUNCT [facility] URE COMPREHEN 29996 [facility] SIVE 7 [facility] METABOLIC E E PANEL [facility] C-REACTIV 50535 [facility] E PROTEIN 7 [facility]ALTHCAR HEALTHCAR [place] [address] LALA REEVES AMYLASE 7 [facility] INC INC FINAL G9638 MARKCALEB KEMPALISONMONA REPORTS 7 MEDICAL W/O DOC IMAGING 1/MORE ASS DOSE REDUCTION TECH URINE 23578 L[facility]A REEVES 7 [facility] TEST INC INC VISUAL COLOR CMPRSN METHS COMPREHEN 91315 LALA REEVES SIVE 7 [facility] METABOLIC INC INC PANEL BLOOD 27570 LALA REEVES COUNT 7 [facility] COMPLETE INC INC AUTO&AUTO DIFRNTL WBC URNLS DIP 69814 [facility] 7 [facility] STICK/TAB INC INC LET REAGENT AUTO MICROSCOP Y FINAL G9551 MARKCALEB KEMPALISONMONA REPR ABD 7 MEDICAL IMAG STS IMAGING W/O ASS INCIDNT F[place]: [place] [address] LALA REEVES LIPASE 7 [place] [address] DANNA SEBASTIANMONA ABDOMEN & 7 MEDICAL PELVIS IMAGING W/[place] L[place] [address] P&[facility] LABS, VILLAFUERTE SURG 7 [facility] PATHOLOGY GROSS&ANABELL ROSCOPIC EXAM ANESTHESI 95567 [facility] A 7 ANESTH INTRAPERI OF THE TONEAL BLUE LOWER ABD W/LAPS NOS BLOOD 48968 LALA LALA COUNT 7 [facility] COMPLETE INC INC AUTO&AUTO DIFRNTL WBC LAPAROSCO 61526 [facility] PY W/RMVL 7 PHYSICIAN ADNEXAL S GROUP STRUCTURE S URINE 41436 LALA REEVES 7 [facility] TEST INC INC VISUAL COLOR CMPRSN METHS BASIC 21379 LALA REEVES METABOLIC 7 [facility] PANEL INC INC CALCIUM TOTAL URNLS DIP 92343 [facility] 7 PHYSICIAN STICK/TAB S GROUP LET RG[place] [address] [facility] TRANSVAGI 7 [place] [address] LALA REEVES LIPASE 7 [facility] INC INC FINAL G9638 DANNA MONROY REPORTS 7 MEDICAL W/O DOC IMAGING 1/MORE ASS DOSE REDUCTION TECH COMPREHEN 70502 LALA REEVES SIVE 7 [facility] [address] LALA REEVES AMYLASE 7 [facility] INC INC URINE 47157 LALA REEVES 7 [facility] TEST INC [place] [address] LALA REEVES ABDOMEN & 7 [facility] PELVIS INC INC W/CONTRAS T MATERIAL BLOOD 11002 LALA REEVES COUNT 7 [facility] COMPLETE INC INC AUTO&AUTO DIFRNTL WBC URNLS DIP 26539 [facility]A REEVES 7 [facility] STICK/TAB INC INC LET REAGENT AUTO MICROSCOP Y FINAL G9551 DANNA PORFIRIO REPR ABD 7 MEDICAL IMAG STS IMAGING W/O ASS INCIDNT FND LES NTD: INJECTION A9585 [place] 7 [facility]ALTH[facility] HEALTHCAR GADOBUTRO E E L 0.1 ML [facility] INJECTION J1610 [facility] GLUCAGON 7 HEALTHCAR HEALTHCAR E E HYDROCHLO [facility] RIDE PER 1 MG MRI 84873 [facility] PELVIS 7 HEALTHCAR HEALTHCAR W/O & E E W/CONTRAS [facility]OSPITALS H[facility]PITALS T MATERIAL MRI 16705 [facility] ABDOMEN 7 HEALTHCAR HEALTHCAR W/O & E E W/CONTRAS [facility]OSPITALS H[facility]PITALS T MATERIAL CYANOCOBA 41375 [facility] DIAMOND 7 [facility]ALTHCAR HEALTHCAR VITAMIN E E B-12 [place] [address] [place] [facility] FERRITIN 7 HEALTHCAR HEALTHCAR E E HOSPITALS HOSPITALS 25 64726 [place] [facility] HYDROXY 7 HEALTHCAR HEALTHCAR INCLUDES E E FRACTIONS HOSPITALS HOSPITALS IF PERFORMED COMPREHEN 12542 [facility] SIVE 7 HEALTHCAR HEALTHCAR METABOLIC E E PANEL HOSPITALS HOSPITALS C-REACTIV 52905 [facility] E PROTEIN 7 HEALTHCAR HEALTHCAR E E HOSPITALS HOSPITALS IRON 52539 [facility] BINDING 7 HEALTHCAR HEALTHCAR CAPACITY E E HOSPITALS HOSPITALS BLOOD 54214 [place] [facility] COUNT 7 HEALTHCAR [facility]ALTHCAR COMPLETE E E AUTOMATED HOSPITALS HOSPITALS COLLECTIO 49044 [facility] N VENOUS 7 HEALTHCAR HEALTHCAR BLOOD E E VENIPUNCT HOSPITALS HOSPITALS URE COLLECTIO 84435 [facility] N VENOUS 6 Y Y BLOOD HEALTH SYSTEM VENIPUNCT URE BLOOD 09658 [facility] COUNT 6 Y Y COMPLETE HEALTH SYSTEM AUTOMATED COMPREHEN 90283 [facility] SIVE 6 Y Y [facility] PANEL C-REACTIV 75750 [facility] E PROTEIN 6 Y Y HEALTH SYSTEM ECG 79604 LALA MURRAY ROUTINE 6 [facility] W/LEAST P 12 LDS I&[place] [address] [facility] LIPASE 6 Y Y HOSPITAL HOSPITAL C-REACTIV 60815 [facility] E PROTEIN 6 Y Y HEALTH SYSTEM BLOOD 31221 [facility] COUNT 6 Y Y [facility] AUTOMATED COLLECTIO 61634 [facility] N VENOUS 6 Y Y BLOOD HEALTH SYSTEM VENIPUNCT URE COMPREHEN 21960 [facility] SIVE 6 Y Y [facility] PANEL BLOOD 89647 LALA REEVES COUNT 6 MEM [facility]OS[facility] COMPLETE INC INC AUTO&AUTO DIFRNTL WBC URNLS DIP 83676 L[facility]A REEVES 6 [facility] STICK/TAB INC INC LET REAGENT AUTO MICROSCOP Y COMPREHEN 99205 LALA LALA SIVE 6 [facility] [address] LALA REEVES AMYLASE 6 [facility] INC INC URINE 23674 LALA REEVES 6 [facility] TEST INC INC VISUAL COLOR CMPRSN METHS THERAPEUT 16548 LALA MARY ANN IC 6 MEM [facility]OS[facility] AAR INJECTION [place] [address] LALA LALA LIPASE 6 [place] [address] LALA REEVES ABDOMEN & 6 [facility] PELVIS INC INC W/O CONTRAST MATERIAL UNCLASSIF J3490 LALA LALA IED DRUGS 6 [facility] INC INC THER 50402 L[place]A [place] PROPH/DX 6 [facility] NJX IV INC INC PUSH SINGLE/1S T SBST/DRUG IAADI 77772 L[place] [place] INFFLUENZ 6 [facility] A A VIRUS INC INC CUL BACT 79563 LALA REEVES XCPT 6 [facility] URINE INC INC BLOOD/STO OL AEROBIC ISOL RADIOLOGI 08453 LALA LALA C EXAM 6 [facility] CHEST 2 INC INC VIEWS FRONTAL&L ATERAL IAADI 27930 LALA LALA INFLUENZA 6 [facility] [place] [address] LALA REEVES STREPTOCO 6 MEM H[facility] CCUS INC INC GROUP A INJECTION J2405 [facility] [address] [facility] ON HCL L PER 1 MG URINE 15423 [facility] 6 Y Y TEST HEALTH SYSTEM VISUAL COLOR CMPRSN METHS EGD 38236 [facility] TRANSORAL 6 Y Y BIOPSY HEALTH SYSTEM SINGLE/MU LTIPLE INJECTION J1100 [facility] 6 Y Y DEXAMETHO HEALTH SYSTEM SONE SODIUM PHOSPHATE 1 MG INJECTION J2704 [facility] PROPOFOL 6 Y Y 10 MG HOSPITAL HOSPITAL INJECTION J3010 [facility] FENTANYL 6 Y Y CITRATE [facility] 0.1 MG INFUSION J7030 [facility] NORMAL 6 Y Y SALINE H[facility] SOLUTION 1000 CC ANES [address] [place] LOWER 6 MEDICAL MEDICAL INTESTINE SERVICES SERVICES ENDOSCOPY DISTAL DUODENUM COLONOSCO 85412 [facility] PY 6 Y Y W/BIOPSY [facility]OSP[facility] SINGLE/[place] [address] [facility] SURG 6 Y Y PATHOLOGY HEALTH SYSTEM GROSS&ANAEBLL ROSCOPIC EXAM COMPREHEN 02113 LALA REEVES SIVE 6 MEM H[facility] MEM HOS[facility] METABOLIC INC INC PANEL COLLECTIO 65277 LALA REEVES N VENOUS 6 MEM [facility] BLOOD INC INC VENIPUNCT URE COLLECTIO 78221 [facility] N VENOUS 6 Y Y BLOOD HEALTH SYSTEM VENIPUNCT URE BLOOD 61518 [facility] COUNT 6 Y Y COMPLETE HEALTH SYSTEM AUTOMATED IRON 29461 [facility] BINDING 6 Y Y [facility] NZYM 34416 [facility] ACTIV BLD 6 Y Y HEALTH SYSTEM CELLS/TIS S NONRADACT SUBSTRATE EA C-REACTIV 64369 [facility] E PROTEIN 6 Y Y HOSPITAL [facility] COMPREHEN 91055 [facility] SIVE 6 Y Y METABOLIC HEALTH SYSTEM PANEL CYANOCOBA 73901 [facility] DIAMOND 6 Y Y VITAMIN HEALTH SYSTEM B-12 25 57046 [facility] HYDROXY 6 Y Y INCLUDES HOSPITAL [place] [address] [place] ALL ABDOMINAL 5 MEDICAL REAL IMAGING TIME ASS W/IMAGE LIMITED URINLS 97191 A C LUIS HATTIE DIP 5 TANJA HENDRICKS STICK/TAB PSC LET REAGNT NON-AUTO MICRSCPY URINE 17859 [facility] 5 PHYSICIAN MARINO TEST S GROUP VISUAL COLOR CMPRSN METHS ETONOGEST J7307 [facility] REL 5 PHYSICIAN MARINO CNTRACPT S GROUP IMPL SYS INCL IMPL & SPL INSJ 21999 [facility] NON-BIODE 5 PHYSICIAN MARINO GRADABLE S GROUP DRUG DELIVERY IMPLANT VAGINAL 56617 [facility] DELIVERY 5 PHYSICIAN MARINO ONLY S GROUP W/POSTPAR NATALIE CARE 01754 [facility] NONSTRESS 5 PHYSICIAN MARINO TEST [place] REPAIR OF 7569 LALA REEVES OTHER 5 [facility] CURRENT INC INC OBSTETRIC LACERATIO N NEURAXIAL 74896 [facility] LABOR 5 ANESTH GAYE ANALG/ANE OF THE S PLND BLUE VAGINAL DELIVERY 22517 LALA REEVES NONSTRESS 5 [facility] TEST INC INC URNLS DIP 61511 LALA REEVES 5 [facility] STICK/TAB INC INC LET REAGENT AUTO MICROSCOP Y 40367 ABBY DHILLON NONSTRESS 5 ALEJO HENDRICKS NESTOR TEST 99667 LALA REEVES NONSTRESS 5 MEM [facility]OS[facility] TEST INC INC IAADIADOO 82296 COMBINED COMBINED 5 PHYSICIAN PHYSICIAN STREPTOCO [place] CCUS GROUP B 66614 [facility] NONSTRESS 5 PHYSICIAN MARINO TEST S GROUP FTL 67060 LALA REEVES FIBRONECT 5 [facility] IN INC INC CERVICOVA G SECRETION S SEMI-AMINATA GLUCOSE 82850 [facility] POST 5 PHYSICIAN PHYSICIAN GLUCOSE S GROUP S GROUP DOSE US PREG 91449 [facility] UTERUS 5 Y Y W/[facility] OF[facility] 1ST GESTATION 33504 LALA REEVES NONSTRESS 5 [facility] TEST INC INC URNLS DIP 26499 LALA REEVES 5 [facility] STICK/TAB INC INC LET REAGENT AUTO MICROSCOP Y URNLS DIP 05397 LALA REEVES 4 [facility] STICK/TAB INC INC LET REAGENT AUTO MICROSCOP Y BLOOD 88027 LALA REEVES COUNT 4 [facility] COMPLETE INC INC AUTO&AUTO DIFRNTL WBC COMPREHEN 36224 LALA REEVES SIVE 4 [facility] [place] [address] LALA REEVES INFUSION 4 [facility] THERAPY/P INC INC ROPHYLAXI S /DX 1ST TO 1 HR THERAPEUT 40238 LALA REEVES IC 4 [facility] INJECTION INC INC IV PUSH EACH NEW DRUG GONADOTRO 96633 LALA LALA PIN 4 [facility] CHORIONIC INC INC QUANTITAT COLLETTE IAADI 23515 L[facility] REEVES INFFLUENZ 4 [facility] A A VIRUS INC INC IAADI 35445 L[place] [place] INFLUENZA 4 [facility] B VIRUS INC INC CUL BACT 65343 L[facility] [place] XCPT 4 [facility] URINE INC INC BLOOD/STO OL AEROBIC ISOL PRESSURIZ 71854 LALA REEVES ED/NONPRE 4 [facility] SSURIZED [place] [address] LALASARA REEVES STREPTOCO 4 [facility] CCUS INC INC GROUP A BLOOD 04228 LALA REEVES COUNT 4 [facility] COMPLETE INC INC AUTO&AUTO DIFRNTL WBC URNLS DIP 67796 LALA REEVES 4 [facility] STICK/TAB INC INC LET REAGENT AUTO MICROSCOP Y FTL 31595 LALA REEVES FIBRONECT 4 [facility] IN INC INC CERVICOVA G SECRETION S SEMI-AMINATA 30693 LALA REEVES NONSTRESS 4 [facility] TEST INC INC 07783 LILO NAGY NONSTRESS 4 MARINO MARINO TEST US PREG 42873 ABBY DHILLON UTERUS 4 ALEJO BAEZ AFTER 1ST TRIMEST GESTATION GONADOTRO 96561 LALA REEVES PIN 4 [facility] CHORIONIC INC INC QUANTITAT COLLETTE ALPHA-FET 49474 LALA REEVES OPROTEIN 4 [facility] [place] [address] LALA REEVES ESTRIOL 4 [facility] INC INC INCISION 77581 LALA REEVES & 4 [facility] DRAINAGE INC INC ABSCESS SIMPLE/SI NGLE INCISION 48930 [facility] SHA & 4 MAE DRAINAGE EMERGENCY ABSCESS PHYS COMPLICAT ED/MULTIP LE SUSCEPTIB 61204 LALA REEVES LTY STDY 4 [facility] ANTIMICRB INC INC IAL MICRO/AGA R DILUTJ CUL BACT 68831 LALA REEVES XCPT 4 [facility] URINE INC INC BLOOD/STO OL AEROBIC ISOL CUL BACT 17486 LALA REEVES AEROBIC 4 [facility] ADDL INC INC METHS DEFINITIV E EA ISOL US PREG 28001 [facility] UTERUS 4 NESTOR NESTOR REAL TIME W/IMAGE DCMTN TRANSVAG IADNA 94133 [facility] HERPES 4 NESTOR NESTOR SIMPLX VIRUS DIRECT PROBE TQ CULTURE 69029 [facility] CHLAMYDIA 4 NESTOR NESTOR ANY SOURCE IAADIADOO 24538 [facility] 4 NESTOR NESTOR TRICHOMON VAGINALIS IADNA 28753 [facility] NEISSERIA 4 NESTOR NESTOR GONORRHOE AE DIRECT PROBE TQ URINLS 61521 [facility] DIP 4 NESTOR NESTOR STICK/TAB LET REAGNT NON-AUTO MICRSCPY URINE 35134 [facility] HARPEL 4 NESTOR NESTOR [place] [address] PORFIRIO PORFIRIO ABDOMEN & 4 KARLOS KARLOS PELVIS W/O CONTRAST MATERIAL NEUROPLAS 29772 [facility] TY 2 N N &/TRANSPO COMMUNTIY COMMUNTIY S MEDIAN HOSPITA HOSPITA NRV CARPAL TUNNE ANES 20526 [place] NERVE 2 ANESTHESI ANESTHESI MUSCLE A GROUP A GROUP TDN PSC PSC FASCIA&BU RSA FOREARM WRIST BASIC 72751 [facility] METABOLIC 2 N N PANEL [facility] CALCIUM HOSPITA HOSPITA TOTAL COLLECTIO 37702 [facility] N VENOUS 2 N N BLOOD [facility] VENIPUNCT HOSPITA HOSPITA URE BLOOD 13310 [facility] COUNT 2 N N COMPLETE [facility] AUTO&AUTO HOSPITA HOSPITA DIFRNTL WBC GONADOTRO 46742 [facility] PIN 2 N N CHORIONIC [facility] HOSPITA HOSPITA QUALITATI VE NEEDLE 75417 [facility] TRA EMG EA 2 [place] EXTREMTY ORTHOPAED W/PARASPI [facility] NL AREA COMPLETE NRV CNDJ 67581 [facility] AMPLT&LAT 2 [place] ENCY EA ORTHOPAED NRV MOTOR [facility] W/F-WAVE STD NRV CNDJ 03370 [facility] AMPLITUDE 2 [place] & ORTHOPAED LATENCY [facility] EACH NERVE SENSORY RADEX 64663 LALA REEVES SHOULDER 1 [facility] COMPLETE INC INC MINIMUM 2 VIEWS RADEX 29849 LALA REEVES SHOULDER 1 [facility] COMPLETE INC INC MINIMUM 2 VIEWS DOPPLER 14276 DANNA MONROY VELOCIMET 1 MEDICAL KAR[place] [address] LALA LALA TRANSVAGI 1 [facility] [place] [address] LALA REEVES LIPASE 1 [facility] INC INC URINE 74967 LALA REEVES 1 [facility] TEST INC INC [place] [address] LALA REEVES AMYLASE 1 [facility] INC INC BLOOD 70820 LALASARA REEVES COUNT 1 [facility] COMPLETE INC INC AUTO&AUTO DIFRNTL WBC URNLS DIP 24983 LALA REEVES 1 [facility] STICK/TAB INC INC LET REAGENT AUTO MICROSCOP Y COMPREHEN 43258 LALA REEVES SIVE 1 [facility] METABOLIC INC INC PANEL GONADOTRO 38965 A C TANJA A PIN 1 TANJA HENDRICKS CHORIONIC PSC QUANTITAT COLLETTE WEDGE 25752 LUIS STODDARD HATTIE EXCISION 1 SKIN NAIL FOLD URINE 93203 LALA REEVES 1 [facility] TEST INC INC VISUAL COLOR CMPRSN METHS CUL 81543 LALA REEVES PRSMPTV 1 [facility]OS[facility] PTHGNC INC INC ORGANISMS SCR DNS CHART EGD 93334 LALA REEVES TRANSORAL 1 [facility] BIOPSY INC INC SINGLE/MU LTIPLE SPECIAL 57777 CHIPPS PICKLESIM STAIN 1 ANAIS & ER JR JACINTO GROUP 1 DUBILIER MICROOR[place] NISMS I&[place] [address] CHIPPS PICKLESIM SURG 1 ANAIS & ER JR [facility] PATHOLOGY DUBILIER GROSS&ANABELL ROSCOPIC EXAM COLONOSCO 03901 [place] PINEDA KHANG PY 1 MEDICAL W/BIOPSY SERV SINGLE/MU FOUNDATIO LTIPLE ANES 31256 [facility] LOWER 1 ANESTH INTESTINE OF THE [place] [address] LALA REEVES INFUSION 1 [facility] THERAPY INC INC PROPHYLAX IS/DX EA HOUR ESOPHAGOG 4516 LALA REEVES ASTRODUOD 1 [facility] ENOSCOPY INC INC WITH CLOSED BIOPSY CLOSED 4525 LALA REEVES [ENDOSCOP 1 [facility] IC] INC INC BIOPSY OF LARGE INTESTINE 3D 44405 LALA REEVES RENDERING 1 [facility] W/INTERP INC INC & POSTPROCE SS SUPERVIS[place] MRI 97823 L[facility] REEVES SPINAL 1 [facility] CANAL INC INC CERVICAL W/O CONTRAST MATRL WRIST L3908 [facility] HAND 1 ORTHOSIS EXT CONTROL COCK-UP PREFAB GASTRIC 35593 LALA REEVES EMPTYING 1 [facility] [address] LALA REEVES CLOSTRIDI 1 [facility] UM INC INC DIFFICILE TOXIN CUL BACT 39712 L[facility]A REEVES STOOL 1 [facility] AEROBIC INC INC ISOL SALMONELL A&SHIGELL C-REACTIV 88843 L[facility] REEVES E PROTEIN 1 [facility] INC INC BLOOD 51678 L[facility]A REEVES COUNT 1 [facility] COMPLETE INC INC AUTO&[place] [address] LALA REEVES STREPTOCO 1 [facility] [place]US [place] IV D[address] ALICIA DMD ALICIA DMD CONSCIOUS 1 [facility] SEDATION/ ANALG - EA ADD 15 [place] [address] LALA REEVES INFUSION 1 [facility] THERAPY INC [place] [address] LALA REEVES INFUSION 1 [facility] THERAPY/P INC INC ROPHYLAXI S /DX 1ST TO 1 HR URINE 62771 L[facility]A PENNINGTONON 1 [facility] TEST INC INC [place] [address] LALA REEVES AMYLASE 1 [facility] INC INC BLOOD 85198 LALA REEVES COUNT 1 [facility] COMPLETE INC INC AUTO&AUTO DIFRNTL WBC URNLS DIP 69611 [facility] REEVES 1 [facility] STICK/TAB INC INC LET REAGENT AUTO MICROSCOP Y COMPREHEN 14471 ALLA REEVES SIVE 1 [facility] METABOLIC INC INC PANEL 3D 40732 LALA REEVES RENDERING 1 [facility] INC INC W/INTERP& [place] [address] LALA REEVES LIPASE 1 [facility] [place] [address] LALASARA REEVES ABDOMEN & 1 [facility] PELVIS INC INC W/O CONTRAST MATERIAL IV D9242 ALICIA DMD ALICIA DMD CONSCIOUS 1 [facility] SEDATION/ ANALG - EA ADD 15 MINUTES URNLS DIP 56515 LALA REEVES 1 [facility] STICK/TAB INC INC LET REAGENT AUTO MICROSCOP Y URINE 66199 LALA LALA 1 [facility] TEST INC INC VISUAL COLOR CMPRSN METHS RADEX 61626 LALA REEVES SPINE 1 [facility] THORACIC INC INC 3 VIEWS RADEX 86565 [facility] IMAGING 2 VIEWS ASS RADIOLOGI 52467 LALA REEVES C EXAM 1 [facility] CHEST 2 INC INC VIEWS FRONTAL&[place] [address] LALA REEVES LIPASE 0 [facility] INC INC CULTURE 48088 LALA REEVES BACTERIAL 0 [facility] INC INC QUANTTATI VE COLONY COUNT URINE CULTURE 78349 L[facility]A REEVES BCT 0 [facility] ISOL&PRSM INC INC PTV ID ISOLATE EA URINE URINE 74650 LALA REEVES 0 [facility] TEST INC [place] V[place] [address] LALA REEVES INFUSION 0 [facility] THERAPY/P INC INC ROPHYLAXI S /DX 1ST TO 1 [place] [address] LALA REEVES AMYLASE 0 [facility] INC INC URNLS DIP 16611 [facility] REEVES 0 [facility] STICK/TAB INC INC LET REAGENT AUTO MICROSCOP Y COMPREHEN 53402 L[facility] REEVES SIVE 0 [facility] METABOLIC INC INC PANEL SUSCEPTIB 49276 LALA REEVES LTY STDY 0 [facility] ANTIMICRB INC INC IAL MICRO/AGA R DILUTJ BLOOD 26255 [facility]EEVES COUNT 0 [facility] COMPLETE INC INC AUTO&AUTO DIFRNTL WBC VAGINAL 36632 [place] [facility] DELIVERY 0 MEDICAL MATT ONLY SERV W/POSTPAR FOUNDATIO NATALIE CARE NEURAXIAL 65449 [place] FRAGNETO, LABOR 0 MEDICAL SARBJIT Y ANALG/ANE SERV S PLND FOUNDATIO VAGINAL DELIVERY IADNA 90758 [facility] STREPTOCO 0 Y Y [facility] GROUP B AMPLIFIED PROBE TQ BLOOD 17364 [facility] COUNT 0 Y Y HEMOGLOBI HEALTH SYSTEM N GLUCOSE 46457 [facility] QUANTITAT 0 Y Y COLLETTE [facility] XCPT REAGENT STRIP COLLECTIO 76538 [facility] N VENOUS 0 Y Y BLOOD HEALTH SYSTEM VENIPUNCT URE BLOOD 72418 [facility] UNIVERSIT COUNT 0 Y Y HEMATOCRI [facility]ALTH SYSTEM T URNLS DIP 21763 [facility] UNIVERSIT 0 Y Y STICK/TAB HEALTH SYSTEM LET RGNT AUTO W/O MICROSCOP Y 88698 [place] ISLAS, NONSTRESS 0 MEDICAL ANGELIC F TEST SERV FOUNDATIO 79995 [facility] MONITORIN 0 Y Y G [facility] PHYS WRITTEN REPORT GROUND A0425 [facility] MILEAGE 0 AMBULANCE AMBULANCE PER SERVICE SERVICE STATUTE MILE AMB A0427 [facility] SERVICE 0 AMBULANCE AMBULANCE ALS SERVICE SERVICE EMERGENCY TRANSPORT LEVEL 1 IV [address] [facility] INFUSION 0 Y Y [facility] HOSPITAL INITIAL 31 MIN-1 [place] [address] TERRA FRIED, A RETROPERI 0 MEDICAL M TONEAL SERV REAL TIME FOUNDATIO W/IMAGE LIMITED BLOOD 11066 UNIVERSIT UNIVERSIT COUNT 0 Y Y COMPLETE [facility]PITAL AUTO&AUTO DIFRNTL WBC URNLS DIP 36359 UNIVERSIT UNIVERSIT 0 Y Y STICK/TAB [facility]OSPITAL LET REAGENT [place]CROSCOP Y 06674 UNIVERSIT UNIVERSIT MONITORIN 0 Y Y G LABOR [facility] PHYS WRITTEN REPORT 32659 TERRA DEBORAH, NONSTRESS 0 MEDICAL RICARDO C TEST SERV FOUNDATIO CULTURE 90276 [facility] BACTERIAL 0 Y Y HEALTH SYSTEM QUANTTAT[place] [address] [facility] UNIVERS BLOOD/URI 0 Y Y C [facility] 72693 [facility] UNIVERSIT MONITORIN 0 Y Y G [facility] [place] [address] [facility] LIPASE 0 Y Y HOSPITAL HOSPITAL LACTATE 23565 [facility] UNIVERS DEHYDROGE 0 Y Y NASE [facility] BLOOD 40824 UNIVERSIT UNIVERSIT COUNT 0 Y Y COMPLETE HEALTH SYSTEM AUTOMATED COMPREHEN 80141 [facility] UNIVERSIT SIVE 0 Y Y METABOLIC HEALTH SYSTEM PANEL 77644 [place] MIDBOE-PE NONSTRESS 0 MEDICAL NN, TEST SERV WILBUR R FOUNDATIO URNLS DIP 74090 UNIVERSIT UNIVERSIT 0 Y Y STICK/TAB HEALTH SYSTEM LET RGNT AUTO W/O MICROSCOP Y INJECTION J2550 UNIVERSIT UNIVERSIT 0 Y [facility] IN[facility] H[facility] UP TO 50 MG INJECTION J2765 UNIVERSIT UNIVERSIT 0 Y Y [facility] AMIDE HCL UP TO 10 MG BLOOD 27119 UNIVERSIT UNIVERSIT COUNT 0 Y Y HEMATOCRI HEALTH SYSTEM T COLLECTIO 68153 [facility] UNIVERSIT N VENOUS 0 Y Y BLOOD HEALTH SYSTEM VENIPUNCT URE BLOOD 03942 UNIVERSIT UNIVERSIT COUNT 0 Y Y [facility]BI [facility] N GLUCOSE 81388 UNIVERSIT UNIVERSIT POST 0 Y Y GLUCOSE HOSPITAL HOSPITAL DOSE IADNA 98992 [facility] CHLAMYDIA 0 Y Y HOSPITAL HOSPITAL [place] [address] [facility] MONITORIN 0 Y Y G LABOR HOSPITAL HOSPITAL PHYS WRITTEN REPORT IADNA 29850 [facility] NEISSERIA 0 Y Y HOSPITAL HOSPITAL [place] [address] [facility] 0 Y Y UTERUS [facility] HOSPITAL LIMITED 1/> FETUSES URNLS DIP 96172 [facility] UNIVERSIT 0 Y Y STICK/TAB [facility]ALTH SYSTEM LET REAGENT AUTO MICROSCOP Y FTL 93713 [facility] FIBRONECT 0 Y Y IN HOSPITAL HOSPITAL CERVICOVA G SECRETION S SEMI-AMINATA 91312 [place] MEYERS, NONSTRESS 0 MEDICAL ADRIÁN M TEST SERV FOUNDATIO 56354 [facility], NONSTRESS 0 HEALTH AURE [facility] INJECTION J2550 [facility] 0 Y Y PROMETHAZ HEALTH SYSTEM INE HCL UP TO 50 MG BASIC 70885 [facility] METABOLIC 0 Y Y PANEL HEALTH SYSTEM CALCIUM TOTAL INJECTION J2405 [facility] 0 Y Y [facility] PER 1 MG URNLS DIP 94482 [facility] UNIVERSIT 0 Y Y STICK/TAB HEALTH SYSTEM [place] [address] [facility] INFUSION 0 Y Y HYDRATION [facility] INITIAL 31 MIN-1 [place] [address] [facility] INFUSION 0 Y Y HYDRATION HEALTH SYSTEM EACH ADDITIONA L HOUR US PREG 84990 [place] ALMENDAREZ, UTERUS 0 MEDICAL MICHELLE F AFTER SERV TRIMEST FOUNDATIO GESTATION GONADOTRO 22926 [facility] PIN 9 Y Y [facility] QUANTITAT COLLETTE INHIBIN A 90422 [facility] 9 [place] [address] [facility] ESTRIOL 9 Y Y HEALTH SYSTEM COLLECTIO 45877 [facility] N [facility]ENOUS 9 Y Y BLOOD [facility] URE ALPHA-FET 37646 [facility] 9 Y Y [facility] 90764 LALA REEVES METABOLIC 9 [facility] [place] [address] [facility] REEVES INFUSION 9 [facility] THERAPY/P INC INC ROPHYLAXI S /DX 1ST TO 1 HR BLOOD 38970 [facility] REEVES COUNT 9 [facility] COMPLETE INC INC AUTO&AUTO DIFRNTL WBC GROUND A0425 [facility]ANCE AMBULANCE PER SERVICE SERVICE STATUTE MILE 96498 [facility] REEVES 9 [facility] UTERUS INC INC LIMITED 1/> FETUSES AMB A0427 [facility] SERVICE 9 AMBULANCE AMBULANCE ALS SERVICE SERVICE EMERGENCY TRANSPORT LEVEL 1 Encounters Encounter Start End Date Code Location Performer Type Date [facility] - 7 7 [facility] OUTPATIEN E T [facility]PITALS OFFICE 83687 [facility] 7 [place] AM T VISIT PHYSICIAN 25 S ASSIST MINUTES EMERGENCY 75318 NATALIA [facility] DEPT 7 7 PHYSICIAN VISIT S, PLLC HIGH SEVERITY& THREAT FUNCJ EMERGENCY 49537 [facility] 7 7 [facility] DEPARTMEN INC T VISIT MODERATE SEVERITY HOSPITAL [facility] - 7 7 [facility] OUTPATIEN INC T HOSPITAL LLAA - 7 7 [facility] OUTPATIEN INC T OFFICE 35602 [facility] 7 7 PHYSICIAN T VISIT S GROUP 15 MINUTES EMERGENCY 14944 NATALIA MAHAJAN DEPT 7 7 PHYSICIAN U VISIT S, PLLC HIGH SEVERITY& THREAT FUNCJ EMERGENCY 98891 [facility] 7 7 [facility] DEPARTMEN INC T VISIT HIGH/URGE NT SEVERITY HOSPITAL [facility] - 7 7 [facility] OUTPATIEN [facility] - 7 7 [facility] OUT[facility]OSPITALS OFFICE 57922 [facility] 7 7 [place] AM T VISIT PHYSICIAN 25 S ASSIST [facility] - 7 7 [facility] - 6 6 Y [facility] T EMERGENCY 10107 NATALIA SHEARER DEPT [address] [facility] HIGH SEVERITY& THREAT [facility] LALA - 6 6 [facility] EMERGENCY 13343 NATALIA MAHAJAN 6 6 PHYSICIAN Kwasi QUINONES [facility] T VISIT MODERATE SEVERITY EMERGENCY 58139 [facility] 6 6 [facility] T VISIT LIMITED/M INOR [facility] UNIVERSIT - 6 6 Y [facility] EMERGENCY 63940 [facility] 6 6 [facility] T VISIT HIGH/URGE NT SEVERITY EMERGENCY 12814 NATALIA PRESTON DEPT [address] [facility] HIGH SEVERITY& THREAT [facility] LALA - 6 6 [facility] LALA - 6 6 [facility] EMERGENCY 64007 NATALIA WATKINS 6 6 PHYSICIAN JR CANALES [facility] T VISIT HIGH/URGE NT SEVERITY EMERGENCY 41476 [facility] 6 6 [facility] T VISIT LOW/MODER [facility]VERITY HOSPITAL UNIVERSIT - 6 6 Y [facility] OFFICE 85779 [facility] 6 6 PHYSICIAN T NEW 20 S [facility] - 6 6 [facility] UNIVERSIT - 6 6 Y [facility] T OFFICE 37012 [facility] OUTPATIEN 5 5 PHYSICIAN BOB T NEW 30 S GROUP MINUTES HOSPITAL [facility] - 5 5 [facility] OUTPATIEN INC T EMERGENCY 09835 [facility] 5 5 [facility] T VISIT LIMITED/M INOR PROB EMERGENCY 91243 NATALIA PENA 5 5 [facility] T VISIT MODERATE SEVERITY [facility]OSPITAL [facility] - 5 5 [facility] OUTPATIEN [facility] T OFFICE 01889 A Sonali WRIGHT OUTPATIEN 5 5 TANJA SMITH T VISIT PSC 25 MINUTES OFFICE 43738 A Sonali KUHN OUTPATIEN 5 5 TANJA HENDRICKS T VISIT PSC 15 MINUTES OFFICE 48110 A Sonali WRIGHT OUTPATIEN 5 5 TANJA SMITH T VISIT PSC 15 MINUTES HOSPITAL [facility] - 5 5 [facility] INPATIENT INC OFFICE 72261 [facility] NAGY OUTPATIEN 5 5 PHYSICIAN MARINO T VISIT S GROUP 15 MINUTES HOSPITAL [facility] - 5 5 [facility] OUTPATIEN INC T OFFICE 93357 [facility] NAGY OUTPATIEN 5 5 PHYSICIAN MARINO T VISIT S GROUP 15 MINUTES OFFICE 74785 [facility] N[facility] OUTPATIEN 5 5 PHYSICIAN MARINO T VISIT S GROUP 15 MINUTES HOSPITAL [facility] - 5 5 [facility] OUTPATIEN INC T OFFICE 73120 [facility] NAGY OUTPATIEN 5 5 PHYSICIAN MARINO T VISIT S GROUP 15 MINUTES HOSPITAL [facility] - 5 5 [facility] OUTPATIEN INC T OFFICE 19464 [facility] N[facility]Y OUTPATIEN 5 5 PHYSICIAN MARINO T VISIT S GROUP 15 MINUTES OFFICE 29250 [facility]O HEARN 5 5 PHYSICIAN MARINO T VISIT 5 S GROUP MINUTES OFFICE 55699 [facility] OUTPATIEN 5 5 PHYSICIAN MARINO T VISIT S GROUP 15 MINUTES HOSPITAL UNIVERSIT - 5 5 Y [facility] LALA - 5 5 [facility] OUTPATIEN INC T EMERGENCY 43254 [facility] TORRES 4 4 [facility] ER T VISIT P MODERATE SEVERITY EMERGENCY 57792 [facility] 4 4 [facility] INC T VISIT HIGH/URGE NT SEVERITY HOSPITAL [facility] - 4 4 [facility] OUTPATIEN INC T EMERGENCY 20972 [facility] RESENDEZ 4 4 [facility] T VISIT P MODERATE SEVERITY HOSPITAL [facility] - 4 4 [facility] OUTPATIEN INC T EMERGENCY 81077 [facility] 4 4 [facility] T VISIT LIMITED/M INOR PROB OFFICE 29206 [facility] LILO HEARN 4 4 PHYSICIAN MARINO T VISIT S GROUP 15 MINUTES OFFICE 63806 [facility] HEARN 4 4 PHYSICIAN MARINO T VISIT S GROUP 15 MINUTES HOSPITAL [facility] - 4 4 [facility] OUTPATIEN INC T OFFICE 55609 ABBY HEARN 4 4 ALEJO BAEZ T VISIT 15 MINUTES HOSPITAL [facility] - 4 4 [facility] OUTPATIEN INC T EMERGENCY 19178 [facility] 4 4 [facility] EMERGENCY T VISIT PHYS MODERATE SEVERITY HOSPITAL [facility] - 4 4 [facility] OUTPATIEN INC T EMERGENCY 41456 [facility] 4 4 [facility] DEPARTMEN INC T VISIT HIGH/URGE NT SEVERITY OFFICE 72656 ABBY R HARPEL OUTPATIEN 4 4 ALEJO HENDRICKS NESTOR T VISIT 15 MINUTES OFFICE 05681 HARPEL HARPEL OUTPATIEN 4 4 NESTOR NESTOR T VISIT 15 MINUTES OFFICE 78237 HARPEL HARPEL OUTPATIEN 4 4 NESTOR NESTOR T VISIT 15 MINUTES INITIAL 66880 HARPEL HARPEL PREVENTIV 4 4 NESTOR NESTOR E MEDICINE NEW PT AGE 18-39YRS EMERGENCY 26155 KARY BRASWELLEY DEPT 4 4 ANABELL ANABELL VISIT HIGH SEVERITY& THREAT FUNCJ OFFICE 94735 SANDOVAL NICK OUTPATIEN 4 4 ARLENE ARLENE T VISIT 15 MINUTES OFFICE 77196 LUIS HATTIE LUIS HATTIE OUTPATIEN 4 4 T VISIT 15 MINUTES OFFICE 35895 FIELD AMB FIELD AMB OUTPATIEN 4 4 T VISIT 15 MINUTES OFFICE 00671 [place] OUTPATIEN 2 2 MEDICAL T VISIT SERV 15 FOUNDATIO MINUTES OFFICE 76746 [place] OUTPATIEN 2 2 MEDICAL T VISIT SERV 15 FOUNDATIO MINUTES [facility] [place] 71328 2 N OUTPATIEN COMMUNTIY T [facility] [place] [address]28 2 N OUTPATIEN COMMUNITY T HOSPITA OFFICE 48214 [facility] OUTPATIEN 2 2 [place] T VISIT ORTHOPAED 10 [facility] MINUTES OFFICE 04965 SANDOVAL NICK OUTPATIEN 2 2 ARLENE ARLENE T NEW 30 MINUTES EMERGENCY 93945 [facility] 2 2 [facility] DEPARTMEN INC T VISIT LOW/MODER SEVERITY EMERGENCY 32255 REMBERTO GUERRERO DAYNE 2 2 EMERGENCY DEPARTMEN SERVICES T VISIT MODERATE SEVERITY HOSPITAL [facility] - 2 2 [facility]PAT[facility] [place] - 1 1 N OUTPATIEN COMMUNITY T HOSPITA EMERGENCY 03508 REMBEROT [facility] 1 1 EMERGENCY GAO [facility] SERVICES T VISIT MODERATE SEVERITY EMERGENCY 96998 [facility] 1 1 N [facility] T VISIT HOSPITA LOW/MODER SEVERITY EMERGENCY 27110 REMBERTO SR 1 1 EMERGENCY EMERGENCY [facility] SERVICES T VISIT HIGH/URGE NT SEVERITY HOSPITAL [facility] - 1 1 [facility] OUTPATIEN [facility] EMERGENCY 77129 [facility] 1 1 [facility] T VISIT LOW/MODER SEVERITY OFFICE 01733 Pat Stewart OUTPATIEN 1 1 TANJA HENDRICKS T VISIT PSC 15 MINUTES [facility]OSPITAL [facility] - [facility] 1 [facility] OFFICE 90468 TERRA QUIÑONEZ OUTPATIEN 1 1 MEDICAL T VISIT SERV 25 FOUNDATIO MINUTES PERIODIC 74645 TERRA JACOB PREVENTIV 1 1 MEDICAL MATT E MED EST SERV PATIENT FOUNDATIO 18-39 YRS HOSPITAL [facility] - 1 1 [facility]PITAL [facility] - 1 1 [facility] EMERGENCY 20880 REMBERTO PRESTON 1 1 EMERGENCY ANABELL [facility] T VISIT HIGH/URGE NT SEVERITY EMERGENCY 14018 [facility] 1 1 [facility] T VISIT MODERATE SEVERITY OFFICE 90199 Pat Stewart OUTPATIEN 1 1 TANJA HENDRICKS T VISIT PSC 15 MINUTES OFFICE 44674 TERRA QUIÑONEZ OUTPATIEN 1 1 MEDICAL T VISIT SERV 25 FOUNDATIO MINUTES OFFICE 55753 LUIS KUHN LUIS HATTIE OUTPATIEN 1 1 T VISIT 15 MINUTES HOSPITAL [facility] - 1 1 [facility] OUTPATIEN [facility] - 1 1 [facility] OFFICE 46135 A Sonali Stewart OUTPATIEN 1 1 TANJA HENDRICKS T VISIT PSC 15 MINUTES EMERGENCY 56094 REMBERTO LIPSCOMB 1 1 EMERGENCY III [facility] T VISIT MODERATE SEVERITY [facility]OSPITAL [facility] - 1 1 [facility] OUT[facility] T EMERGENCY 75093 L[facility] 1 1 [facility] T VISIT LOW/MODER SEVERITY [facility]OSPITAL [facility] - 1 1 [facility] - 1 1 [facility] OFFICE 65332 A Sonali Stewart OUTPATIEN 1 1 TANJA HENDRICKS T VISIT PSC 15 MINUTES OFFICE 52585 TERRA QUIÑONEZ OUTPATIFORD 1 1 MEDICAL T VISIT SERV 40 FOUNDATIO MINUTES OFFICE 09145 A Sonali Stewart OUTPATIEN 1 1 TANJA HENDRICKS T VISIT PSC 15 MINUTES EMERGENCY 56989 REMBERTO OSCAR 1 1 EMERGENCY [facility] T VISIT MODERATE SEVERITY [facility] - 1 1 [facility] T EMERGENCY 59089 [facility] 1 1 [facility] T VISIT LOW/MODER SEVERITY OFFICE 71011 A Sonali Stewart OUTPATIEN 1 1 TANJA HENDRICKS T VISIT PSC 15 MINUTES EMERGENCY 08135 [facility] 1 1 [facility] T VISIT HIGH/URGE NT SEVERITY [facility]OSPITAL [facility] - 1 1 [facility] OUT[facility] T EMERGENCY 05653 REMBERTO PRESTON DEPT 1 1 EMERGENCY ANABELL VISIT SERVICES HIGH SEVERITY& THREAT FUNCJ OFFICE 06175 A Sonali Stewart OUTPATIEN 1 1 TANJA HENDRICKS T VISIT PSC 15 MINUTES HOSPITAL [facility] - 1 1 [facility] OUTPATIEN [facility] T EMERGENCY 86847 REMBERTO GUERRERO DAYNE 1 1 EMERGENCY DEPARTMEN SERVICES T VISIT HIGH/URGE NT SEVERITY EMERGENCY 99434 [facility] 1 1 [facility] LOW/MODER SEVERITY HOSPITAL [facility] - 1 1 [facility] T OFFICE 20902 Pat CHAUDHRYPATIFORD 1 1 TANJA HENDRICKS T VISIT [facility] 15 MINUTES OFFICE 05758 NADIYA FALLON 0 0 MEDICAL JERAD B T VISIT SERV 15 FOUNDATIO [facility] OFFICE 41419 Pat ARCOS OUTPATIEN 0 0 TANJA Lyon T NEW 20 [facility] LALA - 0 0 [facility] T EMERGENCY 95144 LALA 0 0 [facility] T VISIT HIGH/URGE NT SEVERITY OFFICE 81374 [facility] NADIYA VELASQUEZ 0 0 NURSE BELLO T VISIT PRACTITIO 15 [facility] UNIVERS[facility] - 0 0 Y [facility] OFFICE 18230 NADIYA F[place]ON 0 0 MEDICAL JERAD B T VISIT SERV 15 [facility] UNIVERSIT - 0 0 Y [facility] UNIVERSIT - 0 0 Y [facility] UNIVERSIT - 0 0 Y [facility] T OFFICE 48347 NADIYA F[place]ON 0 0 MEDICAL JERAD B T VISIT SERV 15 [facility] UNIVERSIT - 0 0 Y [facility] UNIVERSIT - 0 0 Y [facility] UNIVERSIT - 0 0 Y [facility] T OFFICE 78359 [facility] 0 Y T VISIT [facility] - 0 0 Y [facility] UNIVERSIT - 9 9 Y [facility] LALA - 9 9 [facility] OUTPATIEN INC T EMERGENCY 46920 L[facility]A 9 9 [facility] DEPARTMEN INC T VISIT HIGH/URGE NT SEVERITY
--- OUTSIDE RECORDS SUMMARY | 2017-01-26 17:27 | External Medical Summary Rpt ---
Author Author , JACINTO CASEY Address Unknown Phone [email or web address] Care Team Providers Care Station Tender Name Role Phone A Sonali AGRAWAL MD PSC, Pat Unavailable Unavailable Sonali AGRAWAL MD PSC ALLRAN JR BOB, ALLRAN Unavailable Unavailable JR BOB ARNOLD ARLENE, ARNOLD Unavailable Unavailable ARLENE REESE AAR, REESE Unavailable Unavailable AAR BEINEKE, BEINEKE Unavailable Unavailable WELLS TER, WELLS TER Unavailable Unavailable BESSON HATTIE, BESSON Unavailable Unavailable HATTIE PATEL ALL, PATEL ALL Unavailable Unavailable [facility] Unavailable Unavailable SERVICE, [facility] Unavailable [facility]available [facility] CHIPPS ANAIS & Unavailable Unavailable DUBILIER, [facility] DUBILIER LILO NAGY Unavailable Unavailable NAGY DER, NAGY Unavailable Unavailable AURE FINE, Unavailable Unavailable AURE NAGY [facility] Unavailable Unavailable [place], [facility] Un[facility] Unavailable [facility] [place] [place] PORFIRIO, PORFIRIO Unavailable Unavailable PORFIRIO KARLOS, Unavailable Unavailable PORFIRIO KARLOS PORFIRIO KARLOS, Unavailable Unavailable PORFIRIO KARLOS [facility] Unavailable Unavailable BEHAVIORAL, [facility] Unavailable Unavailable [...] RICARDO C, Unavailable Unavailable DEBORAH RICARDO C [facility] Unavailable [facility] Unavailable Un[facility] GUERRERO DAYNE, GUERRERO DAYNE Unavailable Unavailable MICHELLE ALMENDAREZ F, Unavailable Unavailable MICHELLE ALMENDAREZ HARPEL NESTOR, HARPEL Unavailable Unavailable NESTOR HARPEL NESTOR, HARPEL Unavailable Unavailable NESTOR L[facility] SCO, Unavailable Unavailable [facility] SCO [facility] Unavailable Unavailable INC, [facility] Unavailable Unavailable HOSPITAL P, [facility], Unavailable Unavailable [facility] MELGOZA TRA, MELGOZA TRA Unavailable Unavailable [facility] KILPELA JEA, KILPELA Unavailable [...] JERAD B, Unavailable Unavailable JACOB, JERAD B [facility] Unavailable Unavailable SERVICES, [facility] Unavailable Unavailable SERVICES, [facility] MELISSA CHI, MELISSA Unavailable Unavailable ARTI RESENDEZ JR LU, Unavailable Unavailable MCVILMA WIN LU ALICIA DMD RASTAFARI, ALICIA Unavailable Unavailable DMD RASTAFARI ALICIA DMD RASTAFARI, ALICIA Unavailable Unavailable DMD RASTAFARI MIDBOE-HENRIK, WILBUR Unavailable Unavailable R, MIDBOE-HENRIK, WILBUR [...] VELASQUEZ RUDOLPH M, Unavailable Unavailable ADRIÁN MEYERS [facility] Unavailable Unavailable HOSPITALS, [facility] Unavailable Unavailable ASSIST, [facility], Unavailable Unavailable [facility] # Unavailable Unavailable [id number], [facility] # [id number] [id number] # Unavailable Unavailable [id number], [facility] [...] Provider Status [id number] CROHNS 11-24-2016 [facility] DISEASE [facility] WITHOUT HOSPITALS COMPLICATIO NS 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 COMP [id number] UNSPECIFIED 11-04-2016 [facility] CYST RIGHT INC SIDE N939 ABNORMAL 11-04-2016 [facility] UTERINE & PHYSICIANS, VAGINAL PLLC BLEEDING UNSPECIFIED R102 PELVIC AND 11-04-2016 [facility] PERINEAL PHYSICIANS, PAIN PLLC R1030 LOWER 11-04-2016 [facility] UNSPECIFIED Z0189 ENCOUNTER 10-23-2016 [facility] SPECIFIED SPECIAL EXAMINATION S Z302 ENCOUNTER 10-23-2016 [facility] FOR PHYSICIANS STERILIZATI GROUP ON N8312 CORPUS 10-02-2016 [facility] LUTEUM CYST PHYSICIANS OF LEFT GROUP OVARY R1032 LEFT LOWER 10-02-2016 [facility] QUADRANT PHYSICIANS PAIN GROUP Z3009 ENCOUNTER 10-02-2016 [facility] OT GENERAL PHYSICIANS GROUP FUR STRETCHER&ADV ICE CONTRACEPT K38379 UNSPECIFIED 09-18-2016 [facility] OVARIAN PHYS[facility]ANS, CYST LEFT PLLC SIDE R109 UNSPECIFIED 09-18-2016 [facility] R938 ABNORMAL 09-18-2016 [facility] FIND ON DX MEDICAL IMAGING OT IMAGING ASS SPEC BODY STRCT Z720 TOBACCO USE 09-18-2016 [facility] E559 VITAMIN D 07-13-2016 [facility] V41597 CROHNS 07-13-2016 [facility]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 LARGE ASSIST INTESTINE WITH FISTULA E8351 HYPOCALCEMI 01-01-2016 [facility] ORTEGA, [facility] E876 HYPOKALEMIA 01-01-2016 [facility] ORTEGA, PLLC R42 DIZZINESS 01-01-2016 [facility] AND PHYSICIANS, GIDDINESS PLLC F27357 SWIMMERS 11-24-2015 [facility] EAR PHYSICIANS, BILATERAL PLLC J029 ACUTE 11-24-2015 [facility] PHARYNGITIS PHYSICIANS, PLLC UNSPECIFIED Q88185 UNSPECIFIED 09-13-2015 [facility] UNCOMPLICAT INC ED R1012 LEFT UPPER 09-13-2015 [facility] QUADRANT PHYSICIANS, PAIN PLLC J069 ACUTE UPPER 09-05-2015 [facility] PHYSICIANS, RESPIRATORY PLL INFECTION UNSPECIFIED R05 COUGH 09-05-2015 [facility] R12 HEARTBURN 08-30-2015 [facility] Z8719 PERSONAL 08-30-2015 [facility] OTHER DISEASES DIGESTIVE SYSTEM J020 STREPTOCOCC 08-28-2015 [facility] AL PHYSICIANS PHARYNGITIS GROUP K921 MELENA 08-04-2015 [facility] K5900 CONSTIPATIO 06-19-2015 [facility] N PHYSICIANS, UNSPECIFIED PLLC K5909 OTHER 06-19-2015 [facility]STIPATIO [facility] N INC S32035Q ADVERSE 06-19-2015 [facility] EFFECT UNS [facility] NARCOTICS INC INITIAL ENCOUNTER R1110 VOMITING 06-04-2015 [facility] UNSPECIFIED [facility] INC R112 NAUSEA WITH 06-04-2015 [facility] UNSPECIFIED IMAGING ASS H6690 OTITIS 06-02-2015 A Sonali AGRAWAL MEDIA [facility] UNSPECIFIED UNSPECIFIED EAR N3000 ACUTE 05-11-2015 A Sonali AGRAWAL CYSTITIS PSC WITHOUT HEMATURIA R300 DYSURIA 05-11-2015 A Sonali AGRAWAL MD PSC 26242 ESOPHAGEAL 12-14-2014 A Sonali AGRAWAL REFLUX PSC 7079 CHRONIC 12-14-2014 A Sonali AGRAWAL ULCER OF [facility] UNSPECIFIED SITE V8533 BODY MASS 12-14-2014 A oSnali AGRAWAL INDEX PSC 33.0-33.9 ADULT V255 INSERTION 10-14-2014 [facility] OF PH[facility]ICIANS [place] [address] THREATENED 09-09-2014 [facility] PREMATURE PHYSICIANS LABOR GROUP ANTEPARTUM 96947 OTH CURRENT 09-09-2014 [facility] CCE INC W/DELIVERY 650 NORMAL 09-09-2014 [facility] DELIVERY ANESTH OF THE BLUE 02533 FIRST-DEGRE 09-09-2014 [facility] E PERINEAL PHYSICIANS LACERATION GROUP WITH DELIVERY V0251 CARRIER/IDANIA 09-09-2014 [facility] PECTED [facility] CARRIER INC GROUP B STREPTOCOCC V270 OUTCOME OF 09-09-2014 [facility] DELIVERY PHYSICIANS SINGLE GROUP LIVEBORN V221 SUPERVISION 09-02-2014 [facility] OF OTHER PHYSICIANS NORMAL GROUP 54776 OTHER 08-30-2014 [facility] THREATENED [facility] LABOR, INC ANTEPARTUM 68450 DECR 08-11-2014 [facility] MOVMNTS PHYSICIANS MGMT MOTH GROUP ANTPRTM COND/COMP 46807 ABNORMAL 07-17-2014 [facility] MATERNAL PHYSICIANS GLUCOSE GROUP TOLERANCE ANTEPARTUM V195 FAMILY 07-09-2014 [place] [facility] OF SERV CONGENITAL FOUNDATION ANOMALIES 49445 DEHYDRATION 06-29-2014 [facility] 490 BRONCHITIS 06-29-2014 [facility] P ACUTE OR CHRONIC 26869 VOMITING 06-29-2014 [facility] P 10212 DIARRHEA 06-29-2014 [facility] P V222 06-29-2014 [facility] P 4660 ACUTE 06-26-2014 [facility] BRONCHITIS [facility] P 51381 ASTHMA, 06-26-2014 [facility] UNSPECIFIED [facility] P UNSPECIFIED STATUS V140 PERSONAL 06-26-2014 [facility] HISTORY OF [facility] TO [facility] P PENICILLIN V1582 PERS HX 06-26-2014 [facility] TOBACCO USE [facility] P HAZ[facility]ALTH V220 SUPERVISION 06-22-2014 [facility] OF NORMAL PHYSICIANS FIRST GROUP 83990 OTH CURRENT 06-08-2014 [facility] MAT CONDS [facility] CLASSIFIABL INC E ELSW ANTPRTM 24217 OTHER 03-25-2014 [facility] SPECIFED N EMERGENCY COMPLICATIO PHYS N ANTEPARTUM 6826 CELLULITIS 03-25-2014 [facility] AND ABSCESS N EMERGENCY OF LEG PHYS EXCEPT FOOT 01350 OTHER 03-25-2014 [facility] CONVULSIONS [facility] INC 21485 EXCESS 01-26-2014 [facility] NESTOR GROWTH AFFECT MGMT MOTH ANTPRTM V2889 OTHER 01-19-2014 [facility] NESTOR SPECIFIED SCREENING V7231 ROUTINE 01-19-2014 [facility] NESTOR GYNECOLOGIC AL EXAMINATION 7804 DIZZINESS 11-04-2013 KARY ANABELL AND GIDDINESS 52129 ABDOMINAL 11-04-2013 [facility] PAIN OTHER KARLOS SPECIFIED SITE V4589 OTHER 11-04-2013 PORFIRIO POSTSURGICA KARLOS L STATUS OTHER 4659 ACUTE URIS 10-07-2013 LUIS HATTIE OF UNSPECIFIED SITE 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 53302 DECREASED 12-14-2011 [place] [facility] LIB[facility] FOUNDATIO 63907 ABDOMINAL 09-04-2011 [place] [facility] PA[facility], SERV GENERALIZED FOUNDATION 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 47621 LATERAL 08-16-2011 [facility] EPICONDYLIT [facility]TIY IS OF [facility] V7283 OTHER 08-15-[address] [facility] SPECIFIED COMMUNITY PRE-OPERATI HOSPITA VE EXAMINATION 7295 PAIN IN 08-04-2011 [facility]FT [facility] TISSUES OF S PLC LIMB 4619 ACUTE 06-17-2011 [facility] SINUSITIS, EMERGENCY UNSPECIFIED SERVICES 7937 NONSPC ABN 05-09-2011 [place] FINDNG RAD MEDICAL & OTH EXM IMAGING ASS MUSCULSKELT L SYS 8409 SPRAIN&STRA 05-09-2011 [facility] IN UNSPEC EMERGENCY SITE SERVICES SHOULDER&UP PER ARM E8889 UNSPECIFIED 05-09-2011 [facility] [facility] 87019 UNSPEC 04-04-2011 Pat FONSECA MD PSC BURSAE&TEND ONS SHOULDER REGION 98087 PAIN IN 03-30-2011 [place] JOINT, MEDICAL SHOULDER IMAGING ASS REGION 40638 NAUSEA 03-27-2011 [place] [facility] ALONE [facility] FOUNDAT[facility] 6259 UNSPEC 03-16-2011 [place] [facility] SYMPTOM SERV ASSOC FOUNDATIO W/FEMALE GENITAL ORGANS 6202 OTHER AND 03-07-2011 [place] UNSPECIFIED MEDICAL OVARIAN IMAGING ASS CYST 6264 IRREGULAR 03-07-2011 [facility] CYCLE INC 6253 DYSMENORRHE 02-26-2011 [facility] A [facility] INC 6268 OTH D/O 02-26-2011 [facility] MENSTRUATIO EMERGENCY N&OTH ABN SERVICES BLEED FE GNT TRACT 09896 NAUSEA WITH 02-13-2011 [place] [facility] VOMITING SERV FOUNDATIO 7030 INGROWING 02-09-2011 LUIS HATTIE NAIL 8472 LUMBAR 02-09-2011 LUIS HATTIE SPRAIN AND STRAIN 69142 ATROPHIC 02-06-2011 [facility] GASTRITIS ANAIS & WITHOUT DUBILIER MENTION OF HEMORRHAGE 36174 OTHER SPEC 02-06-2011 [place] [facility] GASTRITIS SERV WITHOUT FOUNDATIO MENTION HEMORRHAGE 5781 BLOOD IN 02-06-2011 [place] [facility] STOOL [facility] F[facility] 7873 FLATULENCE 02-06-2011 [place] [facility] ERUCTATION SERV AND GAS FOUNDATIO PAIN 53642 ABDOMINAL 02-06-2011 [place] [facility] PAIN, SERV UNSPECIFIED FOUNDATIO SITE 7231 CERVICALGIA 01-30-2011 [facility] 7234 BRACHIAL 01-30-2011 [facility] NEURITIS OR [facility] HOS[facility] INC RADICULITIS NOS 40365 PAIN IN 01-23-2011 [place] [facility], EMERGENCY FOREARM SERVICES 00142 PAIN IN 01-23-2011 [facility] JOINT, HAND [facility] INC 05004 SPRAIN AND 01-23-2011 [facility] STRAIN OF UNSPECIFIED SITE OF WRIST 57358 UNSPECIFIED 12-27-2010 Pat AGRAWAL MD PSC CONJUNCTIVI TIS 3829 UNSPECIFIED 12-11-2010 [facility] MEDIA SERVICES 5210 DENTAL 12-08-2010 ALICIA DMD CARIES RASTAFARI 61106 ABDOMINAL 11-24-2010 [place] [facility], MEDICAL PERIUMBILIC IMAGING ASS 7242 LUMBAGO 09-27-2010 Pat AGRAWAL MD PSC 7245 UNSPECIFIED 09-22-2010 [facility] BACKACHE [facility]ERGENCY SERVICES 7241 PAIN IN 09-14-2010 [facility] THORACIC [facility] SPINE IMAGING ASS 91515 OTHER CHEST 09-14-2010 [place] [facility] ASS V242 ROUTINE 12-30-2009 [place] [facility] SERV FOLLOW-UP FOUNDATIO 5990 URINARY 12-25-2009 [place] TRACT [facility]ERG[facility] INFECTION SERVICES SITE NOT ASSOCIATES SPECIFIED 49339 PREMATURE 11-09-2009 [place] [facility] RUPTURE SERV MEMBRANES FOUNDATIO DELIVERED 20903 FORCEPS/EXT 11-09-2009 [place] [facility] RACTOR DEL SERV W/O FOUNDATIO INDICATION- DELIVERED V2389 SUPERVISION 11-09-2009 [place] [facility]ICAL OF OTHER SERV HIGH-RISK FOUNDATIO 36598 THREATENED 10-13-2009 [facility] PREMATURE AMBULANCE LABOR SERVICE UNSPEC EPIS CARE 591 HYDRONEPHRO 10-12-2009 [place] [facility] SIS SERV FOUNDATIO 90841 UNSPECIFIED 10-12-2009 [facility] RENAL DISEASE 35616 INFECTIONS 09-27-2009 [place] [facility] OF SERV GENITOURINA FOUNDATIO RY TRACT ANTEPARTUM 52041 BN&JNT D/O 09-22-2009 [place] [facility] MAT BACK SERV PELVIS&LW FOUNDATIO LIMBS ANTEPARTUM 30039 HYPEREMESIS 09-16-2009 [place] [facility] W/METAB FOUNDATIO DISTURBANCE ANTPRTM 42861 LATE 09-16-2009 [facility] ANTEPARTUM 75866 ABDOMINAL 09-16-2009 [facility] ALICE RIGHT HOSPITAL UPPER QUADRANT 32990 ABDOMINAL 09-16-2009 [facility] EPIGASTRIC 0088 INTESTINAL 08-02-2009 [facility] DUE TO OTHER ORGANISM NEC 7802 [...] ve TA 11 20 20 18 AI MA 21 17 17 33 D N 0 [...] 1 58 PH CE AR TA MA MA CY NO PH #3 93 7. 8 [...] IN OP HE N 5- 32 5 DC 65 04 05 30 5 00 RI [...] CY TA #3 BL 93 ET 8 DC 10 02 03 30 7 00 RI Ac OM 70 -2 -3 .0 00 TE ti ET 20 7- 1- 00 01 ve ARRIAGA 00 20 20 17 AI ZI 30 17 17 16 D NE 1 50 PH AR 25 MA CY MG #3 TA 93 BL 8 ET CI 00 02 03 20 10 00 RI Ac DC 14 -1 -2 .0 00 TE ti [...] 0 MG #3 93 TA 8 B DC 10 02 03 30 7 00 RI [...] ve TA 11 20 20 16 AI MA 21 17 17 72 D N 0 [...] CE 0 PH DY TA AR C MA MA NO CY PH # N 37 [...] TR 65 10 10 1 24 6 VT 44 WR Ac AM 16 -0 -1 .0 L- 96 IG ti AD 20 4- 5- 00 MA 66 HT ve OL 61 20 20 RT 5 -A 71 11 11 AR CE 0 PH DY TA AR C MA MA NO CY PH # N 37 10 .5 05 -3 91 25 TR 65 10 10 1 24 6 WA 44 WR Ac AM 16 -0 -0 .0 L- 96 IG ti AD 20 4- 4- 00 MA 66 HT ve OL 61 20 20 RT 5 -A 71 11 11 AR CE 0 PH DY TA AR C MA MA NO CY PH # N 37 [...] 20 RT 5 AC 11 11 11 MA 0 PH CH SO AR AE D MA L EC CY S # 75 10 MG 05 91 TA B DC 37 08 08 1 30 30 WA [...] MA A CY # 10 05 91 DC 00 07 07 0 14 7 WA [...] -2 -2 00 L- 24 NA ti DC 90 7- 1- 0 MA 90 ve EP 20 20 20 RT 1 ADRIANO 17 11 11 IS PO 5 PH R WD AR ER MA CY PA # CK ET 10 05 91 CI 61 06 06 0 5. 6 WA 71 MO Ac DC 31 -2 -2 00 L- 24 SE [...] 11 11 RI E 9 PH CH DC AR AR OP MA D CY 50 # MC 10 G 05 SP 91 RA Y BR 60 06 06 0 12 2 VT 71 RI Ac OM 43 -1 -1 [...] 6- 6- 00 MA 46 ER ve DC 59 20 20 RT 3 ED 31 [...] CL 63 04 04 0 28 7 VT 71 MC Ac IN 30 -1 -1 .0 L- 15 IL ti DA 40 5- 5- 00 MA 40 VA ve MY 69 20 20 RT 2 IN CI 20 11 11 N 1 PH JA HC AR SO L MA N 15 CY J 0 # MG 10 CA 05 PS 91 UL E DC 68 04 04 0 15 3 VT 71 MC Ac OM 38 -1 -1 .0 L- 15 IL ti ET 20 5- 5- 00 MA 40 VA ve ARRIAGA 04 20 20 RT 0 IN ZI 10 11 11 NE 1 PH JA AR SO 25 MA N CY J MG # TA 10 BL 05 ET 91 ME 00 04 04 0 21 6 VT 71 MC Ac TH 60 -1 -1 .0 L- 15 IL ti YL 34 5- 5- 00 MA 39 VA ve DC 59 20 20 RT 8 IN ED 31 11 11 NI 5 PH JA SO AR SO LO MA N NE CY J 4 # MG 10 05 DO 91 SE PK 00 04 04 0 20 1 VT 44 MC Ac 40 -1 -1 .0 [...] 0 6. 3 WA 70 WE Ac DC 11 -2 -2 00 L- 76 HR [...] 10 05 CA 91 PS UL E DC 65 05 05 5 30 30 WA [...] 20 RT 5 AN 20 09 10 MA TO 1 PH RI IN AR AM MA B MO CY NO # -M CR 10 05 10 91 0 MG DC 65 09 04 11 30 30 WA [...] 1 LL ZA 10 10 10 S DC 6 #4 AL IN 89 IS E 2 A 5 # C MG 48 92 TA BL ET FL 00 03 03 0 2. 3 WA 70 MA Ac UC 17 -0 -0 00 L- 61 RC ti ON 25 8- 8- 0 MA 56 UM ve AZ 41 20 20 RT 0 OL 21 10 10 MA E 1 PH RI 15 AR AM 0 MA B MG CY # TA BL 10 ET 05 91 NI 00 11 03 6 30 30 WA 70 MA Ac TR 37 -3 -0 .0 L- 61 RC ti OF 83 0- 7- 00 MA 42 UM ve UR 42 20 20 RT 5 AN 20 09 10 MA TO 1 PH RI IN AR AM MA B MO CY NO # -M CR 10 05 10 91 0 MG DC 65 09 03 11 30 30 WA [...] Procedure DOS Code Location Performer Comment BLOOD 36204 [facility] COUNT 7 [facility] COMPLETE E E AUTO&AUTO [facility] DIFRNTL WBC COLLECTIO 72994 [place] N VENOUS 7 [facility] HEALTHCAR BLOOD E E VENIPUNCT HOSPITALS HOSPITALS URE COMPREHEN 81863 [facility] SIVE 7 HEALTHCAR HEALTHCAR METABOLIC E E PANEL [facility]OSP[facility]ALS H[facility]ALS C-REACTIV 93646 [facility] E PROTEIN 7 HEALTHCAR HEALTHCAR [place] [address] [facility] REEVES AMYLASE 7 MEM HOSP [facility] INC INC FINAL G9638 MARKCALEB KEMPALISONMONA REPORTS 7 MEDICAL W/O DOC IMAGING 1/MORE ASS DOSE REDUCTION TECH URINE 93088 [facility] REEVES 7 [facility] TEST INC INC VISUAL COLOR CMPRSN METHS COMPREHEN 30666 [facility] REEVES SIVE 7 MEM HOSP MEM HOSP METABOLIC INC INC PANEL BLOOD 40215 [facility]EEV[facility] COUNT 7 MEM H[facility]OS[facility] COMPLETE INC INC AUTO&AUTO DIFRNTL WBC URNLS DIP 47103 [facility] [place] 7 [facility] STICK/TAB INC INC LET REAGENT AUTO MICROSCOP Y FINAL G9551 MARKCALEB KEMPALISONMONA REPR ABD 7 MEDICAL IMAG STS IMAGING W/O ASS INCIDNT FND [place]: [place] [address] [facility] REEVES LIPASE 7 [place] [address] DANNA SEBASTIANMONA ABDOMEN & 7 MEDICAL PELVIS IMAGING W/[place] L[place] [address] [facility], VILLAFUERTE SURG 7 [facility] PATHOLOGY GROSS&ANABELL ROSCOPIC EXAM ANESTHESI 34041 [facility] A 7 ANESTH INTRAPERI OF THE TONEAL BLUE LOWER ABD W/LAPS NOS BLOOD 70260 [facility] LALA COUNT 7 MEM HOSP MEM HOSP COMPLETE INC INC AUTO&AUTO DIFRNTL WBC LAPAROSCO 58337 [facility] LILO PY W/RMVL 7 PHYSICIAN ADNEXAL S GROUP STRUCTURE S URINE 66423 [facility] REEVES 7 MEM HOS[facility] MEM HOSP TEST INC INC VISUAL COLOR CMPRSN METHS BASIC 98473 [facility] REEVES METABOLIC 7 MEM HOSP MEM HOSP PANEL INC INC CALCIUM TOTAL URNLS DIP 22083 [facility] LILO 7 PHYSICIAN STICK/TAB S GROUP LET RGNT NON-AUTO W/[place] [address] [facility] LILO TRANSVAGI 7 [place] [address] [facility] REEVES LIPASE 7 MEM HOSP [facility]OS[facility] INC INC FINAL G9638 DANNA MONROY REPORTS 7 MEDICAL W/O DOC IMAGING 1/MORE ASS DOSE REDUCTION TECH COMPREHEN 70065 [facility] REEVES SIVE 7 MEM HOSP [facility] [place] [address] [facility] REEVES AMYLASE 7 MEM HOSP [facility]OS[facility] INC INC URINE 81848 [facility] REEEVS 7 MEM HOSP MEM HOSP TEST [place] [address] [facility] REEVES ABDOMEN & 7 MEM HOSP MEM HOSP PELVIS INC INC W/CONTRAS T MATERIAL BLOOD 36156 [facility] REEVES COUNT 7 MEM HOSP MEM HOSP COMPLETE INC INC AUTO&AUTO DIFRNTL WBC URNLS DIP 82685 [facility] REEVES 7 MEM HOSP MEM HOSP STICK/TAB INC INC LET REAGENT AUTO MICROSCOP Y FINAL G9551 DANNA PORFIRIO REPR ABD 7 MEDICAL IMAG STS IMAGING W/O ASS INCIDNT FND LES NTD: INJECTION A9585 [facility] 7 HEALTHCAR HEALTHCAR GADOBUTRO E E L 0.1 ML [facility] INJECTION J1610 [facility] GLUCAGON 7 HEALTHCAR HEALTHCAR E E HYDROCHLO [facility] RIDE PER 1 MG MRI 00561 [facility] PELVIS 7 HEALTHCAR HEALTHCAR W/O & E E W/CONTRAS HOSPITALS HOSPITALS T MATERIAL MRI 56137 [facility] ABDOMEN 7 HEALTHCAR HEALTHCAR W/O & E E W/CONTRAS HOSPITALS HOSPITALS T MATERIAL CYANOCOBA 01836 [facility] DIAMOND 7 HEALTHCAR HEALTHCAR VITAMIN E E B-12 [place] [address] [facility] FERRITIN 7 HEALTHCAR HEALTHCAR E E HOSPITALS HOSPITALS 25 44840 [facility] HYDROXY 7 HEALTHCAR HEALTHCAR INCLUDES E E FRACTIONS HOSPITALS HOSPITALS IF PERFORMED COMPREHEN 75994 [facility] SIVE 7 HEALTHCAR HEALTHCAR METABOLIC E E PANEL HOSPITALS HOSPITALS C-REACTIV 98155 [facility] E PROTEIN 7 HEALTHCAR HEALTHCAR E E HOSPITALS HOSPITALS IRON 20235 [facility] BINDING 7 HEALTHCAR HEALTHCAR CAPACITY E E HOSPITALS HOSPITALS BLOOD 82836 [facility] COUNT 7 [facility]ALTH[facility] HEALTHCAR COMPLETE E E AUTOMATED HOSPITALS HOSPITALS COLLECTIO 40323 [facility] N VENOUS 7 HEALTHCAR HEALTHCAR BLOOD E E VENIPUNCT HOSPITALS HOSPITALS URE COLLECTIO 43738 [facility] N VENOUS 6 Y Y BLOOD [facility] VENIPUNCT URE BLOOD 98687 [facility] COUNT 6 Y Y COMPLETE [facility] AUTOMATED COMPREHEN 13783 [facility] SIVE 6 Y Y [facility] HOSPITAL PANEL C-REACTIV 65830 [facility] E PROTEIN 6 Y Y [facility] ECG 33095 L[facility] MURRAY ROUTINE [address] [facility] W/LEAST P 12 LDS [place] [address] [facility] LIPASE 6 Y Y HOSPITAL HOSPITAL C-REACTIV 54059 [facility] E PROTEIN 6 Y Y [facility] BLOOD 11710 [facility] COUNT 6 Y [facility] AUTOMATED COLLECTIO 90265 UN[facility]ERSIT UNIVERSIT N VENOUS 6 Y Y BLOOD [facility] VENIPUNCT URE COMPREHEN 59408 [facility]ERSIT UNIVERSIT SIVE [address] [facility] PANEL BLOOD 85850 [facility] REEVES COUNT 6 [facility] COMPLETE INC INC AUTO&AUTO DIFRNTL WBC URNLS DIP 58934 [facility]EEVES [facility] STICK/TAB INC INC LET REAGENT AUTO MICROSCOP Y COMPREHEN 74817 L[facility] SIVE 6 [facility] [address] LALA REEVES AMYLASE 6 [facility] URINE 91173 [facility]EEVES [facility] TEST INC INC VISUAL COLOR CMPRSN METHS THERAPEUT 05289 LALA MARY ANN IC 6 [facility] AAR INJECTION [place] [address] LALA LALA LIPASE 6 [place] [address] LALA REEVES ABDOMEN & 6 [facility] PELVIS [facility] INC W/O CONTRAST MATERIAL UNCLASSIF J3490 LALA LAL[facility] IED DRUGS 6 [facility] INC INC THER 99628 [place] PROPH/DX 6 [facility] NJX IV INC INC PUSH SINGLE/1S T SBST/DRUG IAADI 98798 [facility] [place] INFFLUENZ 6 [facility] A A VIRUS INC INC CUL BACT 66605 L[facility] REEVES XCPT 6 [facility] URINE INC INC BLOOD/STO OL AEROBIC ISOL RADIOLOGI 72409 LALA LALA C EXAM 6 [facility] CHEST 2 INC INC VIEWS FRONTAL&L ATERAL IAADI 63687 LALA LALA INFLUENZA 6 [facility] [place] [address] LALA REEVES STREPTOCO 6 [facility] CCUS INC INC GROUP A INJECTION J2405 [facility] 6 Y D [facility] BEHAVIORA ON HCL L PER 1 MG URINE 95611 [facility] 6 Y Y TEST [facility] VISUAL COLOR CMPRSN METHS EGD 15855 [facility] TRANSORAL 6 Y Y BIOPSY [facility] SINGLE/MU LTIPLE INJECTION J1100 [facility] 6 Y Y DEXAMETHO [facility] SONE SODIUM PHOSPHATE 1 MG INJECTION J2704 [facility] PROPOFOL 6 Y Y 10 [facility] INJECTION J3010 [facility] FENTANYL 6 Y Y CITRATE [facility] 0.1 MG INFUSION J7030 [facility] NORMAL 6 Y Y SALINE HOSP[facility] SOLUTION 1000 CC ANES [address] [place] [facility] 6 [facility] IN[facility] ENDOSCOPY DISTAL DUODENUM COLONOSCO 18672 [facility] PY 6 Y Y W/BIOPSY [facility] SINGLE/[place] [address] [facility] SURG 6 Y Y PATHOLOGY [facility] GROSS&ANABELL ROSCOPIC EXAM COMPREHEN 60537 L[facility]A REEVES SIVE 6 [facility] METABOLIC INC INC PANEL COLLECTIO 83668 LALA REEVES N VENOUS 6 [facility] BLOOD INC INC VENIPUNCT URE COLLECTIO 39986 [facility] N VENOUS 6 Y Y BLOOD [facility] VENIPUNCT URE BLOOD 51938 [facility] COUNT 6 Y Y COMPLETE [facility] [facility] AUTOMATED IRON 03159 [facility] BINDING 6 Y Y CAPACITY [facility] NZYM 66356 [facility] ACTIV BLD 6 Y Y [facility] CELLS/TIS S NONRADACT SUBSTRATE EA C-REACTIV 35050 [facility] E PROTEIN 6 Y Y [facility] COMPREHEN 21660 [facility] SIVE 6 Y Y METABOLIC [facility] PANEL CYANOCOBA 88296 [facility] DIAMOND 6 Y Y VITAMIN [facility] B-12 25 18560 [facility] HYDROXY 6 Y Y INCLUDES HOSPITAL [place] [address] [place] [facility] ABDOMINAL 5 MEDICAL REAL IMAGING TIME ASS W/IMAGE LIMITED URINLS 22286 A C LUIS HATTIE DIP 5 TANJA HENDRICKS STICK/TAB PSC LET REAGNT NON-AUTO MICRSCPY URINE 80727 [facility] LILO 5 PHYSICIAN MARINO TEST S GROUP VISUAL COLOR CMPRSN METHS ETONOGEST J7307 [facility] LILO REL 5 PHYSICIAN MARINO CNTRACPT S GROUP IMPL SYS INCL IMPL & SPL INSJ 86521 [facility] LILO NON-BIODE 5 PHYSICIAN MARNIO GRADABLE S GROUP DRUG DELIVERY IMPLANT VAGINAL 83358 [facility] LILO DELIVERY 5 PHYSICIAN MARINO ONLY S GROUP W/POSTPAR NATALIE CARE 29866 [facility] LILO NONSTRESS 5 PHYSICIAN MARINO TEST S GROUP REPAIR OF 7569 LALA REEVES OTHER 5 [facility] CURRENT INC INC OBSTETRIC LACERATIO N NEURAXIAL 70732 [facility] LABOR 5 ANESTH GAYE ANALG/ANE OF THE S PLND BLUE VAGINAL DELIVERY 36316 LALA REEVES NONSTRESS 5 [facility] TEST INC INC URNLS DIP 81731 [facility] REEVES 5 [facility] STICK/TAB INC INC LET REAGENT [place]CROSCOP Y 03063 ABBY DHILLON NONSTRESS 5 ALEJO HENDRICKS NESTOR TEST 13045 LALA REEVES NONSTRESS 5 [facility] TEST INC INC IAADIADOO 39457 COMBINED COMBINED 5 PHYSICIAN PHYSICIAN STREPTOCO S LA S LA CCUS GROUP B 07880 [facility] LILO NONSTRESS 5 PHYSICIAN MARINO TEST S GROUP FTL 75036 LALA REEVES FIBRONECT 5 [facility] IN INC INC CERVICOVA G SECRETION S SEMI-AMINATA GLUCOSE 34950 [facility] POST 5 PHYSICIAN PHYSICIAN GLUCOSE S GROUP S GROUP DOSE US PREG 01863 [facility] UTERUS 5 Y Y [facility] GESTATION 54363 LALA REEVES NONSTRESS 5 [facility] TEST INC INC URNLS DIP 80970 [facility] REEVES 5 [facility] STICK/TAB INC INC LET REAGENT AUTO MICROSCOP Y URNLS DIP 01276 [facility] REEVES 4 [facility] STICK/TAB INC INC LET REAGENT AUTO MICROSCOP Y BLOOD 92692 LALA REEVES COUNT 4 [facility] COMPLETE INC INC AUTO&AUTO DIFRNTL WBC COMPREHEN 64199 [facility] REEVES SIVE 4 [facility] [place] [address] LALA REEVES INFUSION 4 [facility] THERAPY/P INC INC ROPHYLAXI S /DX 1ST TO 1 HR THERAPEUT 53928 L[facility]A REEVES IC 4 [facility] INJECTION INC INC IV PUSH EACH NEW DRUG GONADOTRO 46889 LALA LALA PIN 4 [facility] CHORIONIC INC INC QUANTITAT COLLETTE IAADI 20052 LALA REEVES INFFLUENZ 4 [facility] A A VIRUS INC INC IAADI 59469 L[facility] [place] INFLUENZA 4 [facility] B VIRUS INC INC CUL BACT 17292 L[facility] [place] XCPT 4 [facility] URINE INC INC BLOOD/STO OL AEROBIC ISOL PRESSURIZ 52872 LALA REEVES ED/NONPRE 4 [facility] SSURIZED [place] [address] LALASARA REEVES STREPTOCO 4 [facility] CCUS INC INC GROUP A BLOOD 42635 LALA REEVES COUNT 4 [facility] COMPLETE INC INC AUTO&AUTO DIFRNTL WBC URNLS DIP 62538 LALA REEVES 4 [facility] STICK/TAB INC INC LET REAGENT AUTO MICROSCOP Y FTL 45729 LALA REEVES FIBRONECT 4 [facility] IN INC INC CERVICOVA G SECRETION S SEMI-AMINATA 72170 LALA REEVES NONSTRESS 4 [facility] TEST INC INC 69266 LILO NAGY NONSTRESS 4 MARINO MARINO TEST US PREG 13739 ABBY DHILLON UTERUS 4 ALEJO BAEZ AFTER 1ST TRIMEST GESTATION GONADOTRO 99166 LALA REEVES PIN 4 [facility] CHORIONIC INC INC QUANTITAT COLLETTE ALPHA-FET 16820 LALA REEVES OPROTEIN 4 [facility] [place] [address] LALA REEVES ESTRIOL 4 [facility] INC INC INCISION 94993 L[facility] REEVES & 4 [facility] DRAINAGE INC INC ABSCESS SIMPLE/SI NGLE INCISION 46059 [facility] SHA & 4 MAE DRAINAGE EMERGENCY ABSCESS PHYS COMPLICAT ED/MULTIP LE SUSCEPTIB 04240 LALA REEVES LTY STDY 4 [facility] ANTIMICRB INC INC IAL MICRO/AGA R DILUTJ CUL BACT 66551 LALA REEVES XCPT 4 [facility] URINE INC INC BLOOD/STO OL AEROBIC ISOL CUL BACT 72882 LALA REEVES AEROBIC 4 [facility] ADDL INC INC METHS DEFINITIV E EA ISOL US PREG 83522 [facility] UTERUS 4 NESTOR NESTOR REAL TIME W/IMAGE DCMTN TRANSVAG IADNA 37480 [facility] HERPES 4 NESTOR NESTOR SIMPLX VIRUS DIRECT PROBE TQ CULTURE 14547 [facility] CHLAMYDIA 4 NESTOR NESTOR ANY SOURCE IAADIADOO 70725 [facility]L 4 NESTOR NESTOR TRICHOMON VAGINALIS IADNA 98420 [facility] NEISSERIA 4 NESTOR NESTOR GONORRHOE AE DIRECT PROBE TQ URINLS 12221 [facility] DIP 4 NESTOR NESTOR STICK/TAB LET REAGNT NON-AUTO MICRSCPY URINE 78932 [facility] HARPEL 4 NESTOR NESTOR [place] [address] PORFIRIO PORFIRIO ABDOMEN & 4 KARLOS KARLOS PELVIS W/O CONTRAST MATERIAL NEUROPLAS 27179 [facility] TY 2 N N &/TRANSPO COMMUNTIY COMMUNTIY S MEDIAN HOSPITA HOSPITA NRV CARPAL TUN[place] ANES 46065 [place] NERVE 2 ANESTHESI ANESTHESI MUSCLE A GROUP A GROUP TDN PSC PSC FASCIA&BU RSA FOREARM WRIST BASIC 25531 [facility] METABOLIC 2 N N PANEL [facility] HOSPITA TOTAL COLLECTIO 17888 [facility] N VENOUS 2 N N BLOOD [facility]IP[facility]ITA HOSPITA URE BLOOD 08524 [facility] COUNT 2 N N COMPLETE [facility] AUTO&AUTO HOSPITA HOSPITA DIFRNTL WBC GONADOTRO 97160 [facility] PIN 2 N N CHORIONIC [facility] HOSPITA QUALITATI VE NEEDLE 52163 [facility] EMG EA 2 [place] EXTREMTY ORTHOPAED W/PARASPI [facility] NL AREA COMPLETE NRV CNDJ 25353 [facility] AMPLT&LAT 2 [place] ENCY EA ORTHOPAED NRV MOTOR [facility] W/F-WAVE STD NRV CNDJ 52940 [facility] AMPLITUDE 2 [place] & ORTHOPAED LATENCY [facility] EACH NERVE SENSORY RADEX 94345 LALA REEVES SHOULDER 1 [facility] COMPLETE INC INC MINIMUM 2 VIEWS RADEX 04647 LALA REEVES SHOULDER 1 [facility] COMPLETE INC INC MINIMUM 2 VIEWS DOPPLER 93296 DANNA MONROY VELOCIMET 1 MEDICAL [place] [address] LALA LALA TRANSVAGI 1 [facility] [place] [address] LALA REEVES LIPASE 1 [facility]OS[facility] INC INC URINE 41906 LALA REEVES 1 [facility] TEST INC INC [place] [address] LALA REEVES AMYLASE 1 [facility] INC INC BLOOD 43593 LALASARA REEVES COUNT 1 [facility] COMPLETE INC INC AUTO&AUTO DIFRNTL WBC URNLS DIP 92063 L[facility]A REEVES 1 [facility] STICK/TAB INC INC LET REAGENT AUTO MICROSCOP Y COMPREHEN 33385 LALA REEVES SIVE 1 [facility]OS[facility] METABOLIC INC INC PANEL GONADOTRO 55624 A C TANJA A PIN 1 TANJA HENDRICKS CHORIONIC PSC QUANTITAT COLLETTE WEDGE 44805 LUIS STODDARD HATTIE EXCISION 1 SKIN NAIL FOLD URINE 17668 LALA REEVES 1 [facility] TEST INC INC VISUAL COLOR CMPRSN METHS CUL 60379 LALA REEVES PRSMPTV 1 [facility]OS[facility] PTHGNC INC INC ORGANISMS SCR DNS CHART EGD 11494 LALA REEVES TRANSORAL 1 [facility] BIOPSY INC INC SINGLE/MU LTIPLE SPECIAL 23934 CHIPPS PICKLESIM STAIN 1 ANAIS & ER JR JACINTO GROUP 1 DUBILIER MICROORGA NISMS I&[place] [address] CHIPPS PICKLESIM SURG 1 ANAIS & ER JR [facility] PATHOLOGY DUBILIER GROSS&ANABELL ROSCOPIC EXAM COLONOSCO 54272 [place] PINEDA KHANG PY 1 MEDICAL W/BIOPSY SERV SINGLE/MU FOUNDATIO LTIPLE ANES 50372 [facility] 1 ANESTH INTESTINE OF [place] [address] LALA REEVES INFUSION 1 [facility] THERAPY INC INC PROPHYLAX IS/DX EA HOUR ESOPHAGOG 4516 LALA REEVES ASTRODUOD 1 [facility] ENOSCOPY INC INC WITH CLOSED BIOPSY CLOSED 4525 LALA REEVES [ENDOSCOP 1 [facility] IC] INC INC BIOPSY OF LARGE INTESTINE 3D 58495 LALA REEVES RENDERING 1 [facility] W/INTERP INC INC & POSTPROCE SS SUPERVISI [place] MRI 84374 LALA REEVES SPINAL 1 [facility] CANAL INC INC CERVICAL W/O CONTRAST MATRL WRIST L3908 ZHEN L.P. ZHEN L.P. HAND 1 ORTHOSIS EXT CONTROL COCK-UP PREFAB GASTRIC 37751 LALA REEVES EMPTYING 1 [facility] [place] [address] LALA REEVES CLOSTRIDI 1 [facility] UM INC INC DIFFICILE TOXIN CUL BACT 60899 LALA REEVES STOOL 1 [facility] AEROBIC INC INC ISOL SALMONELL A&SHIGELL C-REACTIV 27179 LALA REEVES E PROTEIN 1 [facility] INC INC BLOOD 21783 LALA REEVES COUNT 1 [facility] COMPLETE INC INC AUTO&[place] [address] LALA REEVES STREPTOCO 1 [facility] CCUS [place] A IV D9242 ALICIA DMD ALICIA DMD CONSCIOUS 1 [facility] SEDATION/ ANALG - EA ADD 15 [place] [address] LALA REEVES INFUSION 1 [facility] THERAPY INC [place] [address] LALA REEVES INFUSION 1 [facility] THERAPY/P INC INC ROPHYLAXI S /DX 1ST TO 1 HR URINE 13966 LALA [place] 1 [facility] TEST INC INC [place] [address] LALA REEVES AMYLASE 1 [facility] INC INC BLOOD 81845 LALA REEVES COUNT 1 [facility] COMPLETE INC INC AUTO&AUTO DIFRNTL WBC URNLS DIP 89001 LALA REEVES 1 [facility] STICK/TAB INC INC LET REAGENT AUTO MICROSCOP Y COMPREHEN 75545 LALA REEVES SIVE 1 [facility]OS[facility] METABOLIC INC INC PANEL 3D 34263 LALA REEVES RENDERING 1 [facility] INC INC W/INTERP& [place] [address] LALA REEVES LIPASE 1 [facility] [place] [address] LALASARA REEVES ABDOMEN & 1 [facility] PELVIS INC INC W/O CONTRAST MATERIAL IV D9242 ALICIA DMD ALICIA DMD CONSCIOUS 1 [facility] SEDATION/ ANALG - EA ADD 15 MINUTES URNLS DIP 10791 LLAA REEVES 1 [facility] STICK/TAB INC INC LET REAGENT AUTO MICROSCOP Y URINE 98785 LALA LALA 1 [facility] TEST INC INC VISUAL COLOR CMPRSN METHS RADEX 98885 LALA REEVES SPINE 1 [facility] THORACIC INC INC 3 VIEWS RADEX 07424 [place] [facility] SPINE 1 MEDICAL KARLOS THORACIC IMAGING 2 VIEWS ASS RADIOLOGI 76397 LALA REEVES C EXAM 1 [facility] CHEST 2 INC INC VIEWS FRONTAL&[place] [address] LALA REEVES LIPASE 0 [facility] INC INC CULTURE 70874 LALA REEVES BACTERIAL 0 [facility]OS[facility] INC INC QUANTTATI VE COLONY COUNT URINE CULTURE 54594 LALA REEVES BCT 0 [facility] ISOL&PRSM INC INC PTV ID ISOLATE EA URINE URINE 75750 LALA REEVES 0 [facility]OS[facility] TEST INC [place] [address] LALA REEVES INFUSION 0 [facility] THERAPY/P INC INC ROPHYLAXI S /DX 1ST TO 1 [place] [address] LALA REEVES AMYLASE 0 [facility] INC INC URNLS DIP 83486 L[facility] REEVES 0 [facility] STICK/TAB INC INC LET REAGENT AUTO MICROSCOP Y COMPREHEN 92657 LALA REEVES SIVE 0 [facility] METABOLIC INC INC PANEL SUSCEPTIB 31553 LALA REEVES LTY STDY 0 [facility] ANTIMICRB INC INC IAL MICRO/AGA R DILUTJ BLOOD 21186 LALA REEVES COUNT 0 [facility] COMPLETE INC INC AUTO&AUTO DIFRNTL WBC VAGINAL 75453 [place] JACOB DELIVERY 0 MEDICAL MATT ONLY SERV W/POSTPAR FOUNDATIO NATALIE CARE NEURAXIAL 61887 [place] FRAGNETO, LABOR 0 MEDICAL SARBJIT Y ANALG/ANE SERV S PLND FOUNDATIO VAGINAL DELIVERY IADNA 44230 [facility] STREPTOCO 0 Y Y CCUS [facility] GROUP B AMPLIFIED PROBE TQ BLOOD 64577 [facility] COUNT 0 Y Y HEMOGLOBI [facility] N GLUCOSE 03273 [facility] QUANTITAT 0 Y Y COLLETTE [facility] XCPT REAGENT STRIP COLLECTIO 76195 [facility] N VENOUS 0 Y Y BLOOD [facility] VENIPUNCT URE BLOOD 76175 [facility] UNIVERSIT COUNT 0 Y Y HEMATOCRI [facility] T URNLS DIP 11638 [facility] UNIVERSIT 0 Y Y STICK/TAB [facility] LET RGNT AUTO W/O MICROSCOP Y 40522 [place] ISLAS, NONSTRESS 0 MEDICAL ANGELIC F TEST SERV FOUNDATIO 93825 [facility] MONITORIN 0 Y Y G [facility] PHYS WRITTEN REPORT GROUND A0425 [facility] MILEAGE 0 AMBULANCE AMBULANCE PER SERVICE SERVICE STATUTE MILE AMB A0427 [facility] SERVICE 0 AMBULANCE AMBULANCE ALS SERVICE SERVICE EMERGENCY TRANSPORT LEVEL 1 [place] [address] [facility] INFUSION 0 Y Y HYDRATION HOSPITAL HOSPITAL INITIAL 31 MIN-[place] [address] TERRA FRIED, A RETROPERI 0 MEDICAL M TONEAL SERV REAL TIME FOUNDATIO W/IMAGE LIMITED BLOOD 21463 [facility] COUNT 0 Y Y COMPLETE [facility] AUTO&AUTO DIFRNTL WBC URNLS DIP 25244 [facility] 0 Y Y STICK/TAB [facility] LET REAGENT AUTO MICROSCOP Y 36382 [facility] MONITORIN 0 Y Y G LABOR [facility] PHYS WRITTEN REPORT 81568 TERRA DEBORAH, NONSTRESS 0 MEDICAL RICARDO C TEST SERV FOUNDATIO CULTURE 73380 [facility] BACTERIAL 0 Y Y [facility] QUANTTATI [place] [address] [facility] UNIVERS BLOOD/URI 0 Y Y C ACID [facility] 67038 [facility] MONITORIN 0 Y Y G LABOR [facility] [place] [address] [facility] LIPASE 0 Y Y HOSPITAL HOSPITAL LACTATE 90548 [facility] DEHYDROGE 0 Y Y NASE LDH [facility] BLOOD 61942 [facility] COUNT 0 Y Y COMPLETE [facility] AUTOMATED COMPREHEN 33859 [facility] SIVE 0 Y Y METABOLIC [facility] PANEL 76056 [place] MIDBOE-PE NONSTRESS 0 MEDICAL NN, TEST SERV WILBUR R FOUNDATIO URNLS DIP 67378 [facility] UNIVERSIT 0 Y Y STICK/TAB [facility] LET RGNT AUTO W/O MICROSCOP Y INJECTION J2550 [facility]IV[facility]IT 0 Y Y [facility] IN[facility] H[facility] UP TO 50 MG INJECTION J2765 [facility] 0 Y Y MET[facility]ENCE [facility] AMIDE HCL UP TO 10 MG BLOOD 34527 [facility] COUNT 0 Y Y HEMATOCRI [facility] T COLLECTIO 37773 [facility] N VENOUS 0 Y Y BLOOD [facility] VENIPUNCT URE BLOOD 61373 [facility] COUNT 0 Y Y HEMOGLOBI [facility] N GLUCOSE 14376 [facility] POST 0 Y Y GLUCOSE HOSPITAL HOSPITAL DOSE IADNA 33197 [facility] CHLAMYDIA 0 Y Y HOSPITAL HOSPITAL [place] [address] [facility] MONITORIN 0 Y Y G LABOR HOSPITAL HOSPITAL PHYS WRITTEN REPORT IADNA 78651 [facility] NEISSERIA 0 Y Y HOSPITAL HOSPITAL [place] [address] [facility] 0 Y Y UTERUS [facility] LIMITED 1/> FETUSES URNLS DIP 31599 [facility] 0 Y Y STICK/TAB [facility] LET REAGENT AUTO MICROSCOP Y FTL 82759 [facility] FIBRONECT 0 Y Y IN HOSPITAL HOSPITAL CERVICOVA G SECRETION S SEMI-AMINATA 17918 [place] MEYERS, NONSTRESS 0 MEDICAL ADRIÁN M TEST SERV FOUNDATIO 76498 [facility], NONSTRESS 0 [facility] INJECTION J2550 [facility] 0 Y Y PROMETHAZ [facility] INE HCL UP TO 50 MG BASIC 95929 [facility] METABOLIC 0 Y Y PANEL [facility] CALCIUM TOTAL INJECTION J2405 [facility] PER 1 MG URNLS DIP 33927 [facility] 0 Y Y STICK/TAB [facility] [place] [address] [facility] INFUSION 0 Y Y HYDRATION [facility] INITIAL 31 MIN-[place] [address] [facility] INFUSION 0 Y Y HYDRATION [facility] EACH ADDITIONA L [place] PREG 64076 [place] ALMENDAREZ, UTERUS 0 MEDICAL MICHELLE F AFTER SERV TRIMEST FOUNDATIO GESTATION GONADOTRO 57641 [facility] PIN 9 Y Y CHORIONIC [facility] QUANTITAT [place] [address] [facility] 9 Y Y [facility] [place] [address] [facility] ESTRIOL 9 Y Y [facility] COLLECTIO 98392 [facility] N VENOUS 9 Y Y BLOOD [facility] URE ALPHA-FET 50978 [facility] [address] [facility] 38813 LALA REEVES METABOLIC 9 [facility] [place] [address] LALA REEVES INFUSION 9 [facility] THERAPY/P INC INC ROPHYLAXI S /DX 1ST TO 1 HR BLOOD 61055 LALA REEVES COUNT 9 [facility] COMPLETE INC INC AUTO&AUTO DIFRNTL WBC GROUND A0425 [facility] PER SERVICE SERVICE STATUTE MILE 59521 [facility]A REEVES 9 [facility] UTERUS INC INC LIMITED 1/> FETUSES AMB A0427 [facility] SERVICE 9 AMBULANCE AMBULANCE ALS SERVICE SERVICE EMERGENCY TRANSPORT LEVEL 1 Encounters Encounter Start End Date Code Location Performer Type Date [facility] - 7 7 [facility] OUTPATIEN E T [facility]PITALS OFFICE 82227 [facility] 7 7 [place] AM T VISIT PHYSICIAN 25 S ASSIST MINUTES EMERGENCY 65069 NATALIA GERALD [facility] DEPT 7 7 PHYSICIAN VISIT S, PLLC HIGH SEVERITY& THREAT FUNCJ EMERGENCY 63956 LALA 7 7 [facility] DEPARTMEN INC T VISIT MODERATE SEVERITY HOSPITAL LALA - 7 7 [facility] OUTPATIEN INC T HOSPITAL LALA - 7 7 [facility] OUTPATIEN INC T OFFICE 14849 [facility] 7 7 PHYSICIAN T VISIT S GROUP 15 MINUTES EMERGENCY 00466 NATALIA MAHAJAN DEPT 7 7 PHYSICIAN U VISIT S, PLLC HIGH SEVERITY& THREAT FUNCJ EMERGENCY 99435 [facility]A 7 7 [facility] DEPARTMEN INC T VISIT HIGH/URGE NT SEVERITY HOSPITAL LALA - 7 7 [facility] OUTPATIEN INC T HOSPITAL - 7 7 [facility] OUT[facility]IEN E T HOSPITALS OFFICE 87709 [facility] 7 7 [place] AM T VISIT PHYSICIAN 25 S ASSIST [facility] [place] - 7 7 [facility] OUT[facility] UNIVERSIT - 6 6 Y [facility] T EMERGENCY 29752 NATALIA SHEARER DEPT 6 6 PHYSICIAN ASHLEY VISIT [facility] HIGH SEVERITY& THREAT [facility] LALA - 6 6 [facility] EMERGENC[facility] 65870 NATALIA MAHAJAN 6 6 PHYSICIAN Kwasi [facility] T VISIT MODERATE SEVERITY EMERGENCY 25220 LALA 6 6 [facility] T VISIT LIMITED/M INOR [facility] UNIVERSIT - 6 6 Y [facility] EMERGENCY 34214 LALA 6 6 [facility] T VISIT HIGH/URGE NT SEVERITY EMERGENCY 14994 NATALIA PRESTON DEPT 6 6 PHYSICIAN ANABELL VISIT [facility] HIGH SEVERITY& THREAT [facility] LALA - 6 6 [facility] LALA - 6 6 [facility] EMERGENCY 84115 NATALIA WATKINS 6 6 PHYSICIAN JR CANALES [facility] T VISIT HIGH/URGE NT SEVERITY EMERGENCY 89741 LALA 6 6 [facility] T VISIT LOW/MODER SEVERITY HOSPITAL UNIVERSIT - 6 6 Y [facility] OFFICE 27873 [facility] 6 6 PHYSICIAN T NEW 20 S [facility] LALA - 6 6 [facility] UNIVERSIT [facility] 6 6 Y [facility] T OFFICE 96799 [facility] ACACIA WIN OUTPATIEN 5 5 PHYSICIAN BOB T NEW 30 S GROUP MINUTES HOSPITAL [facility] - 5 5 [facility] OUTPATIEN INC T EMERGENCY 52696 [facility] 5 5 [facility] T VISIT LIMITED/M INOR PROB EMERGENCY 79050 NATALIA PENA 5 5 [facility] T VISIT MODERATE SEVERITY HOSPITAL L[facility]A - 5 5 [facility] OUTPATIEN [facility] T OFFICE 57026 A Sonali WRIGHT OUTPATIEN 5 5 TANJA SMITH T VISIT PSC 25 MINUTES OFFICE 16429 A Sonali KUHN OUTPATIEN 5 5 TANJA HENDRICKS T VISIT PSC 15 MINUTES OFFICE 26121 A Sonali WRIGHT OUTPATIEN 5 5 TANJA SMITH T VISIT PSC 15 MINUTES HOSPITAL [facility] - 5 5 [facility] INPATIENT INC OFFICE 81609 [facility] NAGY OUTPATIEN 5 5 PHYSICIAN MARINO T VISIT S GROUP 15 MINUTES HOSPITAL [facility]ALA - 5 5 [facility] OUTPATIEN INC T OFFICE 74648 [facility] NAGY OUTPATIEN 5 5 PHYSICIAN MARINO T VISIT S GROUP 15 MINUTES OFFICE 77446 [facility] NAGY OUTPATIEN 5 5 PHYSICIAN MARINO T VISIT S GROUP 15 MINUTES HOSPITAL [facility] - 5 5 [facility] OUTPATIEN INC T OFFICE 77637 [facility] NAGY OUTPATIEN 5 5 PHYSICIAN MARINO T VISIT S GROUP 15 MINUTES HOSPITAL LAAL - 5 5 [facility] OUTPATIEN INC T OFFICE 35457 [facility] NAGY OUTPATIEN 5 5 PHYSICIAN MARINO T VISIT S GROUP 15 MINUTES OFFICE 99494 [facility] LILO HEARN 5 5 PHYSICIAN MARINO T VISIT 5 S GROUP MINUTES OFFICE 19524 [facility] LILO OUTPATIEN 5 5 PHYSICIAN MARINO T VISIT S GROUP 15 MINUTES HOSPITAL UNIVERSIT - 5 5 [facility] L[facility]A - 5 5 [facility] OUTPATIEN INC T EMERGENCY 91680 [facility] TORRES 4 4 [facility] T VISIT P MODERATE SEVERITY EMERGENCY 37033 [facility] 4 4 [facility] INC T VISIT HIGH/URGE NT SEVERITY HOSPITAL LALA - 4 4 [facility] OUTPATIEN INC T EMERGENCY 36775 L[facility]A RESENDEZ 4 4 [facility] T VISIT P MODERATE SEVERITY HOSPITAL LALA - 4 4 [facility] OUTPATIEN INC T EMERGENCY 78677 L[place] 4 4 [facility] INC T VISIT LIMITED/M INOR PROB OFFICE 71815 [facility] LILO HEARN 4 4 PHYSICIAN MARINO T VISIT S GROUP 15 MINUTES OFFICE 73455 [facility] LILO HEARN 4 4 PHYSICIAN MARINO T VISIT S GROUP 15 MINUTES HOSPITAL LALA - 4 4 [facility] OUTPATIEN INC T OFFICE 57999 ABBY HEARN 4 4 ALEJO BAEZ T VISIT 15 MINUTES HOSPITAL [facility] - 4 4 [facility] OUTPATIEN INC T EMERGENCY 02681 [facility] 4 4 [facility] EMERGENCY T VISIT PHYS MODERATE SEVERITY HOSPITAL [facility] - 4 4 [facility] OUTPATIEN INC T EMERGENCY 54928 [facility] 4 4 [facility] DEPART[facility] INC T VISIT HIGH/URGE NT SEVERITY OFFICE 80220 ABBY R HARPEL OUTPATIEN 4 4 ALEJO HENDRICKS NESTOR T VISIT 15 MINUTES OFFICE 44283 HARPEL HARPEL OUTPATIEN 4 4 NSETOR NESTOR T VISIT 15 MINUTES OFFICE 06291 [facility]PE[facility] HARPEL OUTPATIEN 4 4 NESTOR NESTOR T VISIT 15 MINUTES INITIAL 62165 [facility]PE[facility] HARPEL PREVENTIV 4 4 NESTOR NESTOR E MEDICINE NEW PT AGE [id number] EMERGENCY [id number] [facility]ASWEL[facility] DEPT 4 4 ANABELL ANABELL VISIT HIGH SEVERITY& THREAT FUNCJ OFFICE 99125 SANDOVAL NICK OUTPATIEN 4 4 ARLENE ARLENE T VISIT 15 MINUTES OFFICE 42023 LUIS HATTIE LUIS HATTIE OUTPATIEN 4 4 T VISIT 15 MINUTES OFFICE 47204 FIELD AMB FIELD AMB OUTPATIEN 4 4 T VISIT 15 MINUTES OFFICE 57790 [place] OUTPATIEN 2 2 MEDICAL T VISIT SERV 15 FOUNDATIO MINUTES OFFICE 70611 [place] OUTPATIEN 2 2 MEDICAL T VISIT SERV 15 FOUNDATIO MINUTES [facility] [place] [address] 2 N OUTPATIEN COMMUNTIY T [facility] [place] [address] 2 N OUTPATIEN COMMUNITY T HOSPITA OFFICE 99699 [facility] OUTPATIEN 2 2 [place] T VISIT [facility]THOPAED 10 [facility] MINUTES OFFICE 81593 SANDOVAL NICK OUTPATIEN 2 2 ARLENE ARLENE T NEW 30 MINUTES EMERGENCY 53596 [facility] 2 2 [facility] DEPARTMEN INC T VISIT LOW/MODER SEVERITY EMERGENCY 37236 REMBERTO GUERRERO DAYNE 2 2 EMERGENCY DEPARTMEN SERVICES T VISIT MODERATE SEVERITY [facility] 2 [facility] [place] - 1 1 N OUTPATIEN COMMUNITY T HOSPITA EMERGENCY 08425 REMBERTO [facility] 1 1 EMERGENCY IAO [facility] SERVICES T VISIT MODERATE SEVERITY EMERGENCY 86619 [facility] 1 1 N [facility] COMMUNITY T VISIT HOSPITA LOW/MODER SEVERITY EMERGENCY 63009 REMBERTO SR 1 1 EMERGENCY EMERGENCY [facility] SERVICES SERVICES T VISIT HIGH/URGE NT SEVERITY HOSPITAL [facility] - 1 1 [facility] OUTPATIEN [facility] EMERGENCY 96403 [facility] 1 1 [facility] T VISIT LOW/MODER SEVERITY OFFICE 75887 Pat Stewart OUTPATIEN 1 1 TANJA HENDRICKS T VISIT PSC 15 MINUTES [facility]OSPITAL [facility] - 1 1 [facility] OFFICE 61873 TERRA QUIÑONEZ OUTPATIEN 1 1 MEDICAL T VISIT SERV 25 FOUNDATIO MINUTES PERIODIC 68022 TERRA JACOB PREVENTIV 1 1 MEDICAL MATT E MED EST SERV PATIENT FOUNDATIO 18-39 YRS HOSPITAL [facility] - 1 1 [facility] OUTPATIEN [facility]PITAL [facility] - 1 1 [facility] OUTPATIEN [facility] EMERGENCY 81197 REMBERTO PRESTON 1 1 EMERGENCY ANABELL [facility] SERVICES T VISIT HIGH/URGE NT SEVERITY EMERGENCY 24855 [facility] 1 1 [facility] T VISIT MODERATE SEVERITY OFFICE 31511 Pat Stewart OUTPATIEN 1 1 TANJA HENDRICKS T VISIT PSC 15 MINUTES OFFICE 26367 TERRA QUIÑONEZ OUTPATIEN 1 1 MEDICAL T VISIT SERV 25 FOUNDATIO MINUTES OFFICE 61994 LUIS KUHN LUIS HATTIE OUTPATIEN 1 1 T VISIT 15 MINUTES HOSPITAL [facility] - 1 1 [facility] OUTPATIEN [facility] - 1 1 [facility] OUTPATIEN [facility] OFFICE 33796 A Sonali Stewart OUTPATIEN 1 1 TANJA HENDRICKS T VISIT PSC 15 MINUTES EMERGENCY 08908 REMBERTO LIPSCOMB 1 1 EMERGENCY III [facility] SERVICES T VISIT MODERATE SEVERITY HOSPITAL [facility] - 1 1 [facility] OUTPATIEN [facility] T EMERGENCY 69099 [facility] 1 1 [facility] T VISIT LOW/MODER SEVERITY HOSPITAL [facility] - 1 1 [facility] OUTPATIEN [facility] - 1 1 [facility] OFFICE 06121 A Sonali Stewart OUTPATIEN 1 1 TANJA HENDRICKS T VISIT PSC 15 MINUTES OFFICE 19592 TERRA QUIÑONEZ OUTPATIFORD 1 1 MEDICAL T VISIT SERV 40 FOUNDATIO MINUTES OFFICE 27635 A Sonali Stewart OUTPATIEN 1 1 TANJA HENDRICKS T VISIT PSC 15 MINUTES EMERGENCY 74020 REMBERTO OSCAR 1 1 EMERGENCY [facility] SERVICES T VISIT MODERATE SEVERITY HOSPITAL [facility] - 1 1 [facility] T EMERGENCY 50591 [facility] 1 1 [facility] T VISIT LOW/MODER SEVERITY OFFICE 81940 A Sonali Stewart OUTPATIEN 1 1 TANJA HENDRICKS T VISIT PSC 15 MINUTES EMERGENCY 42713 [facility] 1 1 [facility] T VISIT HIGH/URGE NT SEVERITY HOSPITAL [facility] - 1 1 [facility] OUTPATIEN [facility] T EMERGENCY 67620 REMBERTO PRESTON DEPT 1 1 EMERGENCY ANABELL VISIT SERVICES HIGH SEVERITY& THREAT FUNCJ OFFICE 12954 A Sonali Stewart OUTPATIEN 1 1 TANJA HENDRICKS T VISIT PSC 15 MINUTES HOSPITAL [facility] - 1 1 [facility] OUTPATIEN [facility] T EMERGENCY 17278 REMBERTO GUERRERO DAYNE 1 1 EMERGENCY DEPARTMEN SERVICES T VISIT HIGH/URGE NT SEVERITY EMERGENCY 53739 [facility]OW/MODER SEVERITY [facility] - 1 1 [facility] T OFFICE 36778 Pat CHAUDHRYPATIFORD 1 1 TANJA HENDRICKS T VISIT [facility] 15 MINUTES OFFICE 36387 NADIYA FALLON 0 0 MEDICAL JERAD B T VISIT SERV 15 [facility] OFFICE 71418 Pat ARCOS OUTPATIEN 0 0 TANJA Lyon T NEW 20 [facility] LALA - 0 0 [facility] T EMERGENCY 43935 [facility] 0 0 [facility] T VISIT [facility]IGH/URGE NT SEVERITY OFFICE 35996 [facility] NADIYA VELASQUEZ 0 0 NURSE BELLO T VISIT PRACTITIO 15 [facility] UNIVERSIT - 0 0 Y [facility] OFFICE 42157 NADIYA FALLON 0 0 MEDICAL JERAD B T VISIT SERV 15 [facility] UNIVERS[facility] - 0 0 Y [facility] UNIVERS[facility] - 0 0 Y [facility] UNIVERS[facility] - 0 0 Y [facility] T OFFICE 39839 NADIYA FALLON 0 0 MEDICAL JERAD B T VISIT SERV 15 [facility] UNIVERS[facility] - 0 0 Y [facility] UNIVERS[facility] - 0 0 Y [facility] UNIVERS[facility] - 0 0 Y [facility] T OFFICE 00673 [facility] 0 0 Y T VISIT [facility] - 0 0 Y [facility]ERS[facility] - 9 9 Y [facility] LALA - 9 9 [facility] OUTPATIEN INC T EMERGENCY 78905 [facility] 9 9 [facility] DEPARTMEN INC T VISIT HIGH/URGE NT SEVERITY
--- OUTSIDE RECORDS SUMMARY | 2017-01-26 17:35 | External Medical Summary Rpt ---
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 Name Role Phone A Sonali AGRAWAL MD PSC, Pat Unavailable Unavailable Sonali AGRAWAL MD PSC ALLRAN JR BOB, ALLRAN Unavailable Unavailable JR BOB ARNOLD ARLENE, ARNOLD Unavailable Unavailable ARLENE REESE AAR, REESE Unavailable Unavailable AAR BEINEKE, BEINEKE Unavailable Unavailable WELLS TER, WELLS TER Unavailable Unavailable BESSON HATTIE, BESSON Unavailable Unavailable HATTIE PATEL ALL, PATEL ALL Unavailable Unavailable [facility] Unavailable Unavailable SERVICE, [facility] Unavailable Unavailable [facility], [facility] CHIPPS ANAIS & Unavailable Unavailable DUBILIER, CHIPPS ANAIS & DUBILIER LILO, NAGY Unavailable Unavailable NAGY MARINO, NAGY Unavailable Unavailable MARINO AURE NAGY, Unavailable Unavailable AURE NAGY [facility] Un[facility] Unavailable [facility], [facility] Unavailable Unavailable [facility] PORFIRIO, PORFIRIO Unavailable Unavailable PORFIRIO KARLOS, Unavailable Unavailable PORFIRIO KARLOS PORFIRIO KARLOS, Unavailable Unavailable PORFIRIO KARLOS [facility] Unavailable Unavailable BEHAVIORAL, [facility] Unavailable Unavailable [facility] Unavailable Unavailable FIELD AMB, FIELD AMB Unavailable Unavailable FIELD AMB, FIELD AMB Unavailable Unavailable FRAGNETO, SARBJIT Y, Unavailable Unavailable FRAGNETO, SARBJIT Y Pat MARIA, Pat MARIA Unavailable Unavailable M JR PARKER WATKINS, Unavailable Unavailable JR PARKER WATKINS KARY ANABELL, KARY Unavailable Unavailable ANABELL KARY ANABELL, KARY Unavailable Unavailable ANABELL DEBORAH, RICARDO C, Unavailable Unavailable DEBORAH, RICARDO C [facility] GUERRERO DAYNE, GUERRERO DAYNE Unavailable Unavailable MICHELLE ALMENDAREZ F, Unavailable Unavailable ALMENDAREZMICHELLE F HARPEL NESTOR, HARPEL Unavailable Unavailable NESTOR HARPEL NESTOR, HARPEL Unavailable Unavailable NESTOR L[facility], Unavailable Unavailable [facility] Unavailable Unavailable INC, [facility] Unavailable Unavailable HOSPITAL P, [facility], Unavailable Unavailable [facility] MELGOZA TRA, MELGOZA TRA Unavailable Unavailable [facility] Un[facility], [facility] KILPELA JEA, KILPELA Unavailable [...] JERAD B, Unavailable Unavailable JACOB, JERAD B [facility] Unavailable Unavailable SERVICES, [facility] Unavailable Unavailable SERVICES, [facility] MELISSA CHI, MELISSA Unavailable Unavailable ARTI MCKEMIE JR LU, Unavailable Unavailable MCKEMIE JR LU ALICIA DMD QUAKER, ALICIA Unavailable Unavailable DMD QUAKER ALICIA DMD QUAKER, ALICIA Unavailable Unavailable DMD QUAKER MIDBOE-HENRIK, WILBUR Unavailable Unavailable R, MIDBOE-HENRIK, WILBUR [...] VELASQUEZ RUDOLPH M, Unavailable Unavailable ADRIÁN MEYERS [facility] Unavailable Unavailable HOSPITALS, [facility] Unavailable Unavailable ASSIST, [facility], Unavailable Unavailable [facility] # Unavailable [facility]available [id number], [facility] # [id number] [id number] # Unavailable Unavailable [id number], [id number] # [id number] WEHRMAN III LU, Unavailable Unavailable WEHRMAN III LU WEHRMAN III, ERIKA, Unavailable Unavailable WEHRMAN III, ERIKA SHWETHA SHA, SHWETHA SHA Unavailable Unavailable BECKY OSCAR, Unavailable Unavailable BECKY AGRAWAL A, TANJA A Unavailable Unavailable Pat AGRAWAL, TANJA, Unavailable Unavailable A C Purpose Continuity of Care Document - 06-29-2009 through 2016 Problems Code Diagnosis DOS Provider Status [id number] CROHNS 11-24-2016 [place] DISEASE [facility] WITHOUT HOSPITALS COMPLICATIO NS 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 [id number] UNSPECIFIED 11-04-2016 [facility] CYST RIGHT INC SIDE N939 ABNORMAL 11-04-2016 [facility]YSIC[facility]ANS, VAGINAL PLLC BLEEDING UNSPECIFIED R102 PELVIC AND 11-04-2016 [facility] PERINEAL [facility]ANS, PAIN PLLC R1030 LOWER 11-04-2016 [place] [facility] PAIN IMAGING ASS UNSPECIFIED Z0189 ENCOUNTER 10-23-2016 [facility] SPECIFIED SPECIAL EXAMINATION S Z302 ENCOUNTER 10-23-2016 [facility] STERILIZATI GROUP ON N8312 CORPUS 10-02-2016 [facility] LUTEUM CYST PHYSICIANS OF LEFT GROUP OVARY R1032 LEFT LOWER 10-02-2016 [facility] QUADRANT PHYSICIANS PAIN GROUP Z3009 ENCOUNTER 10-02-2016 [facility] OT GENERAL PHYSICIANS GROUP GRANTS DIRECTOR&ADV ICE CONTRACEPT Y86116 UNSPECIFIED 09-18-2016 [facility] O[facility]IAN [facility], CYST LEFT PLLC SIDE R109 UNSPECIFIED 09-18-2016 [place] ABDOMINAL [facility]ICAL PAIN IMAGING ASS R938 ABNORMAL 09-18-2016 [place] FIND ON DX MEDICAL IMAGING OT IMAGING ASS SPEC BODY STRCT Z720 TOBACCO USE 09-18-2016 [facility] INC E559 VITAMIN D 07-13-2016 [facility] A21276 CROHNS 07-13-2016 [facility]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 LARGE ASSIST INTESTINE WITH FISTULA E8351 HYPOCALCEMI 01-01-2016 [facility], PLLC E876 HYPOKALEMIA 01-01-2016 [facility] ORTEGA, PLL R42 DIZZINESS 01-01-2016 [facility] AND [facility], GIDDINESS PLLC I74631 SWIMMERS 11-24-2015 [facility] EAR [facility], BILATERAL PLLC J029 ACUTE 11-24-2015 [facility] PHARYNGITIS PHYSICIANS, PLLC UNSPECIFIED G23100 UNSPECIFIED 09-13-2015 [facility] UNCOMPLICAT INC ED R1012 LEFT UPPER 09-13-2015 [facility] QUADRANT PH[facility]ICIANS, PAIN PLLC J069 ACUTE UPPER 09-05-2015 [facility], RESPIRATORY PLLC INFECTION UNSPECIFIED R05 COUGH 09-05-2015 [facility] R12 HEARTBURN 08-30-[address] [facility] Z8719 PERSONAL 08-30-2015 [place] [facility] HISTORY SERVICES OTHER DISEASES DIGESTIVE SYSTEM J020 STREPTOCOCC 08-28-2015 [facility] AL PHYSICIANS PHARYNGITIS GROUP K921 MELENA 08-04-[address] [facility] K5900 CONSTIPATIO 06-19-2015 [facility] N PHYSICIANS, UNSPECIFIED PLLC K5909 OTHER 06-19-2015 [facility]STIP[facility]IO [facility] N INC B08233N ADVERSE 06-19-2015 [facility] EFFECT UNS [facility] NARCOTICS INC INITIAL ENCOUNTER R1110 VOMITING 06-04-2015 [facility] UNSPECIFIED [facility] INC R112 NAUSEA WITH 06-04-2015 [place] VOMITING MEDICAL UNSPECIFIED IMAGING ASS H6690 OTITIS 06-02-2015 A Sonali AGRAWAL MEDIA [facility] UNSPECIFIED UNSPECIFIED EAR N3000 ACUTE 05-11-2015 A Sonali AGRAWAL CYSTITIS [facility] WITHOUT HEMATURIA R300 DYSURIA 05-11-2015 A Sonali AGRAWAL MD PSC 80692 ESOPHAGEAL 12-14-2014 A Sonali AGRAWAL REFLUX PSC 7079 CHRONIC 12-14-2014 A Sonali AGRAWAL ULCER OF [facility] UNSPECIFIED SITE V8533 BODY MASS 12-14-2014 A Sonali AGRAWAL INDEX PSC 33.0-33.9 ADULT V255 INSERTION 10-14-2014 [facility] OF PHYSICIANS [place]ANTABLE [place] [address] THREATENED 09-09-2014 [facility] PREMATURE PHYSICIANS LABOR GROUP ANTEPARTUM 45808 OTH CURRENT 09-09-2014 [facility] CCE INC W/DELIVERY 650 NORMAL 09-09-2014 [facility] DELIVERY ANESTH OF THE BLUE 46500 FIRST-DEGRE 09-09-2014 [facility] E PERINEAL PHYSICIANS LACERATION GROUP WITH DELIVERY V0251 CARRIER/IDANIA 09-09-2014 [facility] PECTED [facility] CARRIER INC GROUP B STREPTOCOCC US V270 OUTCOME OF 09-09-2014 [facility] DELIVERY PHYSICIANS SINGLE GROUP LIVEBORN V221 SUPERVISION 09-02-2014 [facility] OF OTHER PHYSICIANS NORMAL GROUP 51234 OTHER 08-30-2014 [facility] LABOR, INC ANTEPARTUM 32235 DECR 08-11-2014 [facility] MOVMNTS PHYSICIANS MGMT MOTH GROUP ANTPRTM COND/COMP 71635 ABNORMAL 07-17-2014 [facility] MATERNAL PHYSICIANS GLUCOSE GROUP TOLERANCE ANTEPARTUM V195 FAMILY 07-09-2014 [place] [facility] HISTORY OF SERV CONGENITAL [facility]OUNDATION ANOMALIES 65096 DEHYDRATION 06-29-2014 [facility] INC 490 BRONCHITIS 06-29-2014 [facility] P ACUTE OR CHRONIC 50060 VOMITING 06-29-2014 [facility] P 97948 DIARRHEA 06-29-2014 [facility] P V222 06-29-2014 [facility] P 4660 ACUTE 06-26-2014 [facility] BRONCHITIS [facility] P 39663 ASTHMA, 06-26-2014 [facility] UNSPECIFIED [facility] P UNSPECIFIED STATUS V140 PERSONAL 06-26-2014 [facility] HISTORY OF [facility] ALLERGY TO [facility] P PENICILLIN V1582 PERS HX 06-26-2014 [facility] TOBACCO USE [facility] P HAZARDS HEALTH V220 SUPERVISION 06-22-2014 [facility] OF NORMAL PHYSICIANS FIRST GROUP 64017 OTH CURRENT 06-08-2014 [facility] MAT CONDS [facility] CLASSIFIABL INC E ELSW ANTPRTM 76399 OTHER 03-25-2014 [facility] SPECIFED N EMERGENCY COMPLICATIO PHYS N ANTEPARTUM 6826 CELLULITIS 03-25-2014 [facility] AND ABSCESS N EMERGENCY OF LEG PHYS EXCEPT FOOT 20658 OTHER 03-25-2014 [facility]VULSIONS [facility] INC 56134 EXCESS 01-26-2014 [facility] NESTOR GROWTH AFFECT MGMT MOTH ANTPRTM V2889 OTHER 01-19-2014 [facility] NESTOR SPECIFIED SCREENING V7231 ROUTINE 01-19-2014 [facility] NESTOR GYNECOLOGIC AL EXAMINATION 7804 DIZZINESS 11-04-2013 KARY ANABELL AND GIDDINESS 24747 ABDOMINAL 11-04-2013 [facility] PAIN OTHER KARLOS SPECIFIED SITE V4589 OTHER 11-04-2013 [facility] POSTSURGICA KARLOS L STATUS OTHER 4659 ACUTE URIS 10-07-2013 [facility] HATTIE OF UNSPECIFIED SITE 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 80515 DECREASED 12-14-2011 [place] [facility] LIB[facility] SERV FOUNDATIO 96599 ABDOMINAL 09-04-2011 [place] [facility] PA[facility], SERV GENERALIZED FOUNDATION 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 55812 LATERAL 08-16-2011 [place] EPICONDYLIT COMMUNTIY IS OF [facility] V7283 OTHER 08-15-2011 [place] SPECIFIED COMMUNITY PRE-OPERATI HOSPITA VE EXAMINATION 7295 PAIN IN 08-04-2011 [facility] [place] SOFT [facility] TISSUES OF S PLC LIMB 4619 ACUTE 06-17-2011 [facility] SINUSITIS, EMERGENCY UNSPECIFIED SERVICES 7937 NONSPC ABN 05-09-2011 [place] FINDNG RAD MEDICAL & OTH EXM IMAGING ASS MUSCULSKELT L SYS 8409 SPRAIN&STRA 05-09-2011 [facility] IN UNSPEC EMERGENCY SITE SERVICES SHOULDER&UP PER ARM E8889 UNSPECIFIED 05-09-2011 [place] FALL MEDICAL IMAGING ASS 14584 UNSPEC 04-04-2011 Pat FONSECA MD PSC BURSAE&TEND ONS SHOULDER REGION 77682 PAIN IN 03-30-2011 [place] JOINT, MEDICAL SHOULDER IMAGING ASS REGION 25679 NAUSEA 03-27-2011 [place] [facility] ALONE [facility] FOUNDAT[facility] 6259 UNSPEC 03-16-2011 [place] [facility] SYMPTOM SERV ASSOC FOUNDATIO W/FEMALE GENITAL ORGANS 6202 OTHER AND 03-07-2011 [place] UNSPECIFIED MEDICAL OVARIAN IMAGING ASS CYST 6264 IRREGULAR 03-07-2011 [facility] CYCLE INC 6253 DYSMENORRHE 02-26-2011 [facility] A [facility] INC 6268 OTH D/O 02-26-2011 [facility] MENSTRUATIO EMERGENCY N&OTH ABN SERVICES BLEED FE GNT TRACT 40325 NAUSEA WITH 02-13-2011 [place] [facility] VOMITING SERV FOUNDATIO 7030 INGROWING 02-09-2011 LU[facility] HATTIE NAIL 8472 LUMBAR 02-09-2011 LU[facility] HATTIE SPRAIN AND STRAIN 67873 ATROPHIC 02-06-2011 [facility] GA[facility]ITIS ANAIS & WITHOUT DUBILIER MENTION OF HEMORRHAGE 78907 OTHER SPEC 02-06-2011 [place] [facility] GASTRITIS SERV WITHOUT FOUNDATIO MENTION HEMORRHAGE 5781 BLOOD IN 02-06-2011 [place] [facility] STOOL SERV FOUNDAT[facility] 7873 FLATULENCE 02-06-2011 [place] [facility] ERUCTATION SERV AND GAS FOUNDATIO PAIN 05224 ABDOMINAL 02-06-2011 [place] [facility] PAIN, SERV UNSPECIFIED FOUNDATIO SITE 7231 CERVICALGIA 01-30-2011 [place] [facility] 7234 BRACHIAL 01-30-2011 [facility] NEURITIS OR [facility] HOS[facility] INC RADICULITIS NOS 81842 PAIN IN 01-23-2011 [facility] JOINT, EMERGENCY FOREARM SERVICES 29487 PAIN IN 01-23-2011 [facility] JOINT, HAND [facility]OS[facility] INC 37161 SPRAIN AND 01-23-2011 [facility] STRAIN OF UNSPECIFIED SITE OF WRIST 53857 UNSPECIFIED 12-27-2010 Pat AGRAWAL MD PSC CONJUNCTIVI TIS 3829 UNSPECIFIED 12-11-2010 [facility] OTITIS EMERGENCY MEDIA SERVICES 5210 DENTAL 12-08-2010 [facility] DMD CARIES QUAKER 60565 ABDOMINAL 11-24-2010 [place] PAIN, MEDICAL PERIUMBILIC IMAGING ASS 7242 LUMBAGO 09-27-2010 Pat AGRAWAL MD PSC 7245 UNSPECIFIED 09-22-2010 [facility] BACKACHE EMERGENCY SERVICES 7241 PAIN IN 09-14-2010 [place] THORACIC MEDICAL SPINE IMAGING ASS 18494 OTHER CHEST 09-14-2010 [place] PAIN MEDICAL IMAGING ASS V242 ROUTINE 12-30-2009 [place] MEDICAL SERV FOLLOW-UP FOUNDATIO 5990 URINARY 12-25-2009 [facility] TRACT EMERGENCY INFECTION SERVICES SITE NOT ASSOCIATES SPECIFIED 06563 PREMATURE 11-09-2009 [place] MEDICAL RUPTURE SERV MEMBRANES FOUNDATIO DELIVERED 61530 FORCEPS/EXT 11-09-2009 [place] MEDICAL RACTOR DEL SERV W/O FOUNDATIO INDICATION- DELIVERED V2389 SUPERVISION 11-09-2009 [place] MEDICAL OF OTHER SERV HIGH-RISK FOUNDATIO 16602 THREATENED 10-13-2009 [facility] PREMATURE AMBULANCE LABOR SERVICE UNSPEC EPIS CARE 591 HYDRONEPHRO 10-12-2009 [place] [facility] SIS SERV FOUNDATIO 58411 UNSPECIFIED 10-12-2009 [facility] RENAL DISEASE 18779 INFECTIONS 09-27-2009 [place] MEDICAL OF SERV GENITOURINA FOUNDATIO RY TRACT ANTEPARTUM 28181 BN&JNT D/O 09-22-2009 [place] [facility] MAT BACK SERV PELVIS&LW FOUNDATIO LIMBS ANTEPARTUM 50206 HYPEREMESIS 09-16-2009 [place] [facility]ICAL SERV W/METAB FOUNDATIO DISTURBANCE ANTPRTM 51546 LATE 09-16-2009 [facility] ANTEPARTUM 27901 ABDOMINAL 09-16-2009 [facility] UPPER QUADRANT 97040 ABDOMINAL 09-16-2009 [facility] EPIGASTRIC 0088 INTESTINAL 08-02-2009 [facility] DUE TO OTHER ORGANISM NEC 7802 SYNCOPE AND 06-29-2009 [facility] Medications Na ND Rx Da Fi Fi [...] MG CY TA #5 BL 91 ET ME 00 05 06 30 30 00 RI Ac RC 05 -2 -2 .0 00 TE ti AP 44 3- 3- 00 01 ve TO 58 20 20 18 AI PU 11 17 17 51 D RI 1 49 PH NE AR MA 50 CY MG #3 93 TA 8 BL ET DI 00 05 06 12 30 00 RI Ac CY 37 -2 -2 0. 00 TE ti CL 81 3- 3- 00 01 ve OM 62 20 20 0 18 AI IN 00 17 17 51 D E 1 50 PH 20 AR MA MG CY TA #3 BL 93 ET 8 RA 11 05 06 30 30 00 RI Ac 82 -1 -0 .0 00 TE ti 25 0- 9- 00 01 ve TA 11 20 20 18 AI IN 21 17 17 33 D N 0 [...] 1 58 PH CE AR TA MA IN CY NO PH #3 93 7. 8 5- 32 5 DI 00 04 05 12 30 00 RI Ac CY 37 -2 -2 0. 00 TE ti CL 81 3- 6- 00 01 ve OM 62 20 20 0 17 AI IN 00 17 17 66 D E 1 07 PH 20 AR MA MG CY TA #3 BL 93 ET 8 CA 65 04 05 30 5 00 RI Ac OM 16 -2 -2 .0 00 TE ti ET 20 0- 6- 00 01 ve ARRIAGA 52 20 20 18 AI ZI 11 17 17 07 D NE 0 53 PH AR 25 MA CY MG #3 TA 93 BL 8 ET OX 13 04 05 30 3 00 CL Ac YC 10 -2 -2 .0 00 IN ti OD 70 4- 6- 00 00 IC ve ON 04 20 20 42 E- 40 17 17 89 PH AC 1 85 AR ET MA AM CY IN OP HE N 5- 32 5 ET 60 03 04 20 10 00 [...] CY TA #3 BL 93 ET 8 CA 10 02 03 30 7 00 RI [...] CY TA #3 BL 93 ET 8 CI 00 02 03 20 10 00 RI Ac CA 14 -1 -2 .0 00 TE ti [...] 0 MG #3 93 TA 8 B CA 10 02 03 30 7 00 RI Ac OM 70 -1 -2 .0 00 TE ti ET 20 7- 4- 00 01 ve ARRIAGA 00 20 20 17 AI ZI 30 17 17 16 D NE 1 50 PH AR 25 MA CY MG #3 TA 93 BL 8 ET AZ 68 02 03 90 30 00 RI Ac AT 46 -1 -1 .0 00 TE ti HI 20 0- 7- 00 01 ve OP 50 20 20 16 AI RI 20 17 17 65 D NE 1 33 PH AR 50 MA CY MG #3 TA 93 BL 8 ET 64 02 03 4. 28 00 RI Ac T 38 -1 -1 00 00 TE ti D2 00 3- 7- 0 01 ve 73 20 20 16 AI 1. 70 17 17 72 D 25 6 16 PH AR MG MA CY (5 0, #3 00 93 0 8 UN IT ) DI 00 01 03 12 30 00 [...] ve TA 11 20 20 16 AI IN 21 17 17 72 D N 0 [...] CE 0 PH DY TA AR C IN MA NO CY PH # N 37 [...] WA 44 WR Ac AM 16 -0 -1 .0 L- 96 IG ti AD 20 4- 5- 00 MA 66 HT ve OL 61 20 20 RT 5 -A 71 11 11 AR CE 0 PH DY TA AR C IN MA NO CY PH # N 37 10 .5 05 -3 91 25 TR 65 10 10 1 24 6 WA 44 WR Ac AM 16 -0 -0 .0 L- 96 IG ti AD 20 4- 4- 00 MA 66 HT ve OL 61 20 20 RT 5 -A 71 11 11 AR CE 0 PH DY TA AR C IN MA NO CY PH # N 37 [...] 20 RT 5 AC 11 11 11 IN 0 PH CH SO AR AE D MA L EC CY S # 75 10 MG 05 91 TA B CA 37 08 08 1 30 30 WA [...] MA A CY # 10 05 91 CA 00 07 07 0 14 7 WA [...] -2 -2 00 L- 24 NA ti CA 90 7- 1- 0 MA 90 ve EP 20 20 20 RT 1 ADRIANO 17 11 11 IS PO 5 PH R WD AR ER MA CY PA # CK ET 10 05 91 CI 61 06 06 0 5. 6 WA 71 MO Ac CA 31 -2 -2 00 L- 24 SE [...] 11 11 RI E 9 PH CH CA AR AR OP MA D CY 50 # MC 10 G 05 SP 91 RA Y BR 60 06 06 0 12 2 WA 71 RI Ac OM 43 -1 -1 0. L- 23 SH ti FE 20 6- 6- 00 MA 46 ER ve D 83 20 20 0 RT 2 DM 70 11 11 RI 4 PH CH CO AR AR UG MA D H CY SY # RU P 10 05 91 ME 00 06 [address] 71 RI Ac TH 60 -1 -1 .0 L- 23 SH ti YL 34 6- 6- 00 MA 46 ER ve CA 59 20 20 RT 3 ED 31 [...] CA PS 10 UL 05 E 91 00 04 [address] 44 MC Ac 40 -1 -1 .0 L- 93 IL ti 60 5- 5- 00 MA 07 VA ve 35 20 20 RT 3 IN 70 11 11 5 PH JA AR SO MA N CY J # 10 05 91 ME 00 04 [address] 71 MC Ac TH 60 -1 -1 .0 L- 15 IL ti YL 34 5- 5- 00 MA 39 VA ve CA 59 20 20 RT 8 IN ED 31 11 11 NI 5 PH JA SO AR SO LO MA N NE CY J 4 # MG 10 05 DO 91 SE PK CA 68 04 [address] 71 MC Ac OM 38 -1 -1 .0 L- 15 IL ti ET 20 5- 5- 00 MA 40 VA ve ARRIAGA 04 20 20 RT 0 IN ZI 10 11 11 NE 1 PH JA AR SO 25 MA N CY J MG # TA 10 BL 05 ET 91 CL 63 04 [address] 71 MC Ac IN 30 -1 -1 .0 L- 15 IL ti DA 40 5- 5- 00 MA 40 VA ve MY 69 20 20 RT 2 IN CI 20 11 11 N 1 PH JA HC AR SO L MA N 15 CY J 0 # MG 10 CA 05 PS 91 UL E 00 04 [address] 44 MC Ac 40 -1 -1 .0 [...] 0 6. 3 WA 70 WE Ac CA 11 -2 -2 00 L- 76 HR ti OF 10 6- 7- 0 MA 31 MA ve LO 12 20 20 RT 5 N XA 60 10 10 II CI 1 PH I N AR WI HC MA LL L CY IA 25 # M 0 E MG 10 05 TA 91 B OX 00 05 05 0 30 2 WA 22 No Ac YC 40 -1 -1 .0 L- 17 t ti OD 60 2- 3- 00 MA 93 Av ve ON 51 20 20 RT 2 ai E- 20 10 10 la AC 1 PH bl ET AR e AM MA IN CY OP # HE N 10 5- 05 32 91 5 IB 68 05 05 0 40 10 WA 70 No Ac UP 64 -1 -1 .0 L- 70 t ti RO 50 2- 3- 00 MA 56 Av ve FE 22 20 20 RT 4 ai N 15 10 10 la 60 9 PH bl 0 AR e MG MA CY TA # BL ET 10 05 91 CA 65 05 05 5 30 30 WA 70 No Ac EN 16 -1 -1 .0 L- 70 t ti AT 20 2- 3- 00 MA 56 Av ve AL 66 20 20 RT 5 ai [address] 0 PH bl US AR e MA TA CY BL # ET 10 05 91 DO 00 05 05 0 60 30 WA 88 No Ac CU 53 -1 -1 .0 L- 15 t ti SA 63 2- 3- 00 MA 98 Av ve TE 75 20 20 RT 6 ai 70 10 10 la SO 1 PH bl DI AR e UM MA CY 25 # 0 MG 10 05 CA 91 PS UL E CA 65 09 04 11 30 30 WA 70 ARRIAGA Ac EN 16 -2 -0 .0 L- 38 LL ti AT 20 9- 6- 00 MA 99 ve AL 66 20 20 RT 7 LI [address] 0 PH R US AR MA TA CY BL # ET 10 05 91 NI 00 11 04 6 30 30 WA 70 MA Ac TR 37 -3 -0 .0 L- 61 RC ti OF 83 0- 6- 00 MA 42 UM ve UR 42 20 20 RT 5 AN 20 09 10 IN TO 1 PH RI IN AR AM MA B MO CY NO # -M CR 10 05 10 91 0 MG CY 59 03 03 1 30 10 WA 28 GA Ac CL 74 -2 -2 .0 LG 60 MB ti OB 60 9- 9- 00 RE 25 RE ve EN 21 20 20 EN 1 LL ZA 10 10 10 S CA 6 #4 AL IN 89 IS E 2 A 5 # C MG 48 92 TA BL ET FL 00 03 03 0 2. 3 WA 70 MA Ac UC 17 -0 -0 00 L- 61 RC ti ON 25 8- 8- 0 MA 56 UM ve AZ 41 20 20 RT 0 OL 21 10 10 IN E 1 PH RI 15 AR AM 0 MA B MG CY # TA BL 10 ET 05 91 NI 00 11 03 6 30 30 WA 70 MA Ac TR 37 -3 -0 .0 L- 61 RC ti OF 83 0- 7- 00 MA 42 UM ve UR 42 20 20 RT 5 AN 20 09 10 IN TO 1 PH RI IN AR AM MA B MO CY NO # -M CR 10 05 10 91 0 MG CA 65 09 03 11 30 30 WA 70 ARRIAGA Ac EN 16 -2 -0 .0 L- 38 LL ti AT 20 9 7- 00 MA 99 ve AL 66 20 20 RT 7 LI [address] 0 PH R US AR MA TA CY BL # ET 10 05 91 Procedures Procedure DOS Code Location Performer Comment COMPREHEN [id number] [facility] SIVE 7 [facility] METABOLIC E E PANEL [facility] BLOOD 58061 [facility] COUNT 7 [facility] COMPLETE E E AUTO&AUTO [facility] DIFRNTL WBC COLLECTIO 89092 [facility] N VENOUS 7 [facility]ALTHCAR HEALTHCAR BLOOD E E VENIPUNCT [facility] URE C-REACTIV 31196 [facility] E PROTEIN 7 [facility] [place] [address] [facility] ABDOMEN & 7 MEDICAL PELVIS IMAGING W/O ASS CONTRAST MATERIAL FINAL G9638 [facility] SE[facility] REPORTS 7 MEDICAL W/O DOC IMAGING 1/MORE ASS DOSE REDUCTION TECH BLOOD 93252 [facility] COUNT 7 [facility] COMPLETE INC INC AUTO&AUTO DIFRNTL WBC FINAL G9551 [facility] KURTZ REPR ABD 7 MEDICAL IMAG STS IMAGING W/O ASS INCIDNT FND LES NTD: URNLS DIP 12524 [facility] 7 [facility] STICK/TAB INC INC LET REAGENT AUTO MICROSCOP Y COMPREHEN 28387 [facility] SIVE 7 [facility] [place] [address] [facility] LIPASE [place] [address] [facility] AMYLASE 7 MEM HOSP MEM HOS[facility] INC INC URINE 89226 [facility] TEST INC INC VISUAL COLOR CMPRSN METHS URINE 64277 [facility] TEST INC INC VISUAL COLOR CMPRSN METHS BASIC 55215 [facility] METABOLIC 7 [facility] PANEL INC INC CALCIUM TOTAL BLOOD 42817 [facility] COUNT 7 [facility] COMPLETE INC INC AUTO&[place] [address] [facility] SURG [facility] PATHOLOGY GROSS&ANABELL ROSCOPIC EXAM ANESTHESI [address] [place] [address] ANESTH INTRAPERI OF THE TONEAL BLUE LOWER ABD W/LAPS NOS LAPAROSCO 76147 [facility] LILO PY W/RMVL 7 PHYSIC[place] [address] [facility] LILO TRANSVAGI 7 PHYSICIAN NAL S GROUP URNLS DIP 04506 [facility] LILO 7 PHYSICIAN STICK/TAB S GROUP LET RGNT NON-AUTO W/[place] [address] [facility] LIPASE 7 [facility] INC INC COMPREHEN 04441 [facility] SIVE 7 [facility] [place] [address] ALL[facility] REEVES AMYLASE 7 [facility] INC INC URINE 43544 [facility] TEST INC INC VISUAL COLOR CMPRSN METHS FINAL G9638 [facility] REPORTS 7 MEDICAL W/O DOC IMAGING 1/MORE ASS DOSE REDUCTION TECH BLOOD 12716 [facility] COUNT 7 [facility] COMPLETE INC INC AUTO&[place] [address] [facility] ABDOMEN & 7 [facility] PELVIS INC INC W/CONTRAS T MATERIAL FINAL G9551 [facility] P[facility] REPR ABD 7 MEDICAL IMAG STS IMAGING W/O ASS INCIDNT FND LES NTD: URNLS DIP 18978 [facility] STICK/TAB INC INC LET REAGENT AUTO MICROSCOP Y MRI 95621 [facility] ABDOMEN 7 HEALTHCAR HEALTHCAR W/O & E E W/CONTRAS [facility] T MATERIAL INJECTION J1610 [facility] [place]UCAGON 7 HEALTHCAR HEALTHCAR E E HYDROCHLO [facility] R[facility] PER 1 MG INJECTION A9585 [facility] 7 HEALTHCAR HEALTHCAR GADOBUTRO E E L 0.1 [facility] HOSPITALS MRI 06483 [facility] PELVIS 7 HEALTHCAR HEALTHCAR W/O & E E W/CONTRAS [facility] T MATERIAL 25 49302 [facility] HYDROXY 7 HEALTHCAR HEALTHCAR INCLUDES E E [facility] IF PERFORMED CYANOCOBA 83524 [facility] DIAMOND 7 [facility]CAR HEALTHCAR VITAMIN E E B-[facility] [place] [address] [facility] FERRITIN 7 HEALTHCAR HEALTHCAR E E [facility]OS[facility]ALS H[facility]IT[facility] COMPREHEN 75631 [facility] SIVE 7 HEALTHCAR HEALTHCAR METABOLIC E E PANEL HOSPITALS HOSPITALS COLLECTIO 08963 [facility] N VENOUS 7 HEALTHCAR HEALTHCAR BLOOD E E VENIPUNCT HOSPITALS HOSPITALS URE C-REACTIV 37090 [facility] E PROTEIN 7 HEALTHCAR HEALTHCAR E E HOSPITALS HOSPITALS IRON [address] [facility] BINDING 7 [facility] CAPACITY E [facility]PIT[facility] HOSPITALS BLOOD 89583 [facility] COUNT 7 [facility] COMPLETE E E AUTOMATED [facility]OSPITALS HOSPITALS BLOOD 48370 [facility] COUNT 6 Y Y COMPLETE [facility] AUTOMATED C-REACTIV 88285 [facility] E PROTEIN 6 Y Y HOSPITAL HOSPITAL COLLECTIO 75923 [facility] N VENOUS 6 Y Y BLOOD [facility] VENIPUNCT URE COMPREHEN 19867 [facility] Y [facility] PANEL ECG 14879 LALA MURRAY ROUTINE 6 [facility] W/LEAST P 12 LDS I&R ONLY COLLECTIO 31094 [facility]IV[facility]IT N VENOUS 6 Y Y BLOOD [facility] VENIPUNCT URE C-REACTIV 65145 [facility] E PROTEIN 6 Y Y HOSPITAL HOSPITAL BLOOD 72017 [facility] COUNT 6 Y Y COMPLETE [facility] AUTOMATED COMPREHEN 34010 UNIVERS UNIVERSIT [facility] 6 Y Y [facility] [place] [address] UN[facility]ERS[facility] [place]IPASE 6 [place] [address] LALA REEVES LIPASE 6 [facility] INC INC THER 93712 LALA REEVES PROPH/DX 6 [facility] NJX IV INC INC PUSH SINGLE/1S T SBST/DRUG COMPREHEN 88099 LALA LALA SIVE 6 [facility] [place] [address] LALA LALA AMYLASE 6 [facility] INC INC URINE 60164 L[facility]A REEVES 6 [facility] TEST INC [place] V[place] [address] LALA LALA ABDOMEN & 6 [facility] PELVIS INC INC W/O CONTRAST MATERIAL BLOOD 11145 LALA LALA COUNT 6 [facility] COMPLETE INC INC AUTO&AUTO DIFRNTL WBC THERAPEUT 69017 LALA REESE IC 6 [facility] AAR INJECTION INC IV PUSH EACH NEW DRUG URNLS DIP 35937 LALA LALA 6 [facility] STICK/TAB INC INC LET REAGENT AUTO MICROSCOP Y UNCLASSIF J3490 LALA REEVES IED DRUGS 6 [facility] [place] [place] [address] LALA REEVES STREPTOCO 6 [facility] CCUS INC INC GROUP A CUL BACT 00043 LALA REEVES XCPT 6 [facility] URINE INC INC BLOOD/STO OL AEROBIC ISOL IAADI 83681 LALA REEVES INFLUENZA 6 [facility] B VIRUS INC INC IAADI 89937 LALA REEVES INFFLUENZ 6 [facility] A A VIRUS INC INC RADIOLOGI 95118 LALA REEVES C EXAM 6 [facility] CHEST 2 INC INC VIEWS FRONTAL&L ATERAL EGD 19408 [facility] TRANSORAL 6 Y Y BIOPSY [facility] SINGLE/MU LTIPLE COLONOSCO 12313 [facility] PY 6 Y Y W/BIOPSY [facility] SINGLE/MU LTIPLE INJECTION J2704 [facility] PROPOFOL 6 Y Y 10 MG H[facility] HOSPITAL INJECTION J3010 [facility] FENTANYL 6 Y Y CITRATE [facility] 0.1 MG URINE 91774 [facility] 6 Y Y TEST [facility] [place] [address] [facility] SURG 6 Y Y PATHOLOGY [facility] GROSS&ANABELL ROSCOPIC EXAM INJECTION J2405 [facility] [place] 6 Y D [facility] [facility] BEHAVIORA ON HCL L PER 1 MG INFUSION J7030 [facility] NORMAL 6 Y Y SALINE [facility] SOLUTION 1000 CC ANES [address]26 [place] LOWER 6 MEDICAL MEDICAL INTESTINE SERVICES SERVICES ENDOSCOPY DISTAL DUODENUM INJECTION J1100 [facility] 6 Y Y DEXAMETHO [facility] SONE SODIUM PHOSPHATE 1 MG COLLECTIO 13700 LALA REEVES N VENOUS 6 [facility] BLOOD INC INC VENIPUNCT URE COMPREHEN 32881 LALA REEVES SIVE 6 [facility] METABOLIC INC INC PANEL COMPREHEN 12539 [facility] SIVE 6 Y Y METABOLIC [facility] PANEL 25 98005 [facility] HYDROXY 6 Y Y INCLUDES [facility] FRACTIONS IF PERFORMED CYANOCOBA 07653 [facility] DIAMOND 6 Y Y VITAMIN [facility] B-12 NZYM 90579 [facility] ACTIV BLD 6 Y Y [facility] CELLS/TIS S NONRADACT SUBSTRATE EA COLLECTIO 63264 [facility] N VENOUS 6 Y Y BLOOD [facility] VENIPUNCT URE C-REACTIV 41047 [facility] E PROTEIN 6 Y Y [facility] IRON 44661 [facility] BINDING 6 Y Y CAPACITY [facility] BLOOD 47427 [facility] COUNT 6 Y Y COMPLE[place] [facility] [place] [address] [place] PATEL ALL ABDOMINAL 5 MEDICAL REAL IMAGING TIME ASS W/IMAGE LIMITED URINLS 29514 A C LUIS HATTIE DIP 5 TANJA HENDRICKS STICK/TAB PSC LET REAGNT NON-AUTO MICRSCPY URINE 34485 [facility] LILO 5 PHYSICIAN MARINO TEST S GROUP VISUAL COLOR CMPRSN [place] INSJ 82497 [facility] LILO NON-BIODE 5 PHYSICIAN MARINO GRADABLE S GROUP DRUG DELIVERY IMPLANT ETONOGEST J7307 [facility] LILO REL 5 PHYSICIAN MARINO CNTRACPT S GROUP IMPL SYS INCL IMPL & SPL VAGINAL 32338 [facility] NAGY DELIVERY 5 PHYSICIAN MARINO ONLY S GROUP W/POSTPAR NATALIE CARE REPAIR OF 7569 LALA REEVES OTHER 5 [facility] CURRENT INC INC OBSTETRIC LACERATIO N NEURAXIAL 06018 [facility] LABOR 5 ANESTH GAYE ANALG/ANE OF THE S PLND BLUE VAGINAL DELIVERY 73059 [facility] NAGY NONSTRESS 5 PHYSICIAN MARINO TEST S GROUP 78880 LALA REEVES NONSTRESS 5 [facility] TEST INC INC URNLS DIP 40584 LALA REEVES 5 [facility] STICK/TAB INC INC LET REAGENT AUTO MICROSCOP Y 11265 ABBY DHILLON NONSTRESS 5 ALEJO HENDRICKS NESTOR TEST 85484 LALA REEVES NONSTRESS 5 [facility] TEST INC INC IAADIADOO 34657 COMBINED COMBINED 5 PHYSICIAN PHYSICIAN STREPTOCO S [place] CCUS GROUP B FTL 98643 LALA REEVES FIBRONECT 5 [facility] IN INC INC CERVICOVA G SECRETION S SEMI-AMINATA 70338 [facility] NONSTRESS 5 PHYSICIAN MARINO TEST S GROUP GLUCOSE 73060 [facility] POST 5 PHYSICIAN PHYSICIAN GLUCOSE S GROUP S GROUP [place] PREG 47364 [facility] UTERUS 5 Y Y W/DETAIL [facility] OFELIA 1ST GESTATION URNLS DIP 67874 LALA REEVES 5 [facility] STICK/TAB INC INC LET REAGENT AUTO MICROSCOP Y 73647 ABBY DHILLON NONSTRESS 5 ALEJO HENDRICKS NESTOR TEST GONADOTRO 55124 LALA REEVES PIN 4 [facility] CHORIONIC INC INC QUANTITAT COLLETTE COMPREHEN 65184 LALA REEVES SIVE 4 [facility] METABOLIC INC INC PANEL URNLS DIP 17944 LALA REEVES 4 [facility] STICK/TAB INC [place] [address] LALA REEVES INFUSION 4 [facility] THERAPY/P INC INC ROPHYLAXI S /DX 1ST TO 1 HR THERAPEUT 08862 LALA REEVES IC 4 [facility] INJECTION INC INC IV PUSH EACH NEW DRUG BLOOD 14817 LALA REEVES COUNT 4 [facility] COMPLETE INC INC AUTO&AUTO DIFRNTL WBC BLOOD 39787 LALA REEVES COUNT 4 [facility] COMPLETE INC INC AUTO&AUTO DIFRNTL WBC PRESSURIZ 81784 LALA REEVES ED/NONPRE 4 [facility] SSURIZED [place] [address] LALA REEVES STREPTOCO 4 [facility] CCUS INC INC GROUP A IAADI 53455 LALA REEVES INFLUENZA 4 [facility] B VIRUS INC INC IAADI 66972 LALA REEVES INFFLUENZ 4 [facility] A A VIRUS INC INC CUL BACT 03459 LALA REEVES XCPT 4 [facility] URINE INC INC BLOOD/STO OL AEROBIC ISOL 28757 LALA REEVES NONSTRESS 4 [facility] TEST INC INC FTL 53888 LALA REEVES FIBRONECT 4 [facility] IN INC INC CERVICOVA G SECRETION S SEMI-AMINATA URNLS DIP 55180 LALA REEVES 4 [facility] STICK/TAB INC INC LET REAG[place]CROS[place] Y 01452 LILO NAGY NONSTRESS 4 MARINO MARINO TEST US PREG 46380 ABBY DHILLON UTERUS 4 ALEJO BAEZ AFTER 1[place] [address] LALA REEVES ESTRIOL 4 [facility] INC INC GONADOTRO 98917 LALA REEVES PIN 4 [facility] CHORIONIC INC INC QUANTITAT COLLETTE ALPHA-FET 89926 LALA REEVES OPROTEIN 4 [facility] SERUM INC INC INCISION 90735 LALA REEVES & 4 [facility] DRAINAGE INC INC ABSCESS SIMPLE/SI NGLE INCISION 70868 [facility] SHWETHA SHA & 4 MAE DRAINAGE EMERGENCY ABSCESS PHYS COMPLICAT ED/MULTIP LE CUL BACT 17011 LALA REEVES AEROBIC 4 [facility] ADDL INC INC METHS DEFINITIV E EA ISOL CUL BACT 75875 LALA REEVES XCPT 4 [facility] URINE INC INC BLOOD/STO OL AEROBIC ISOL SUSCEPTIB 75972 LALA REEVES LTY STDY 4 [facility] ANTIMICRB INC INC IAL MICRO/AGA R DILUTJ US PREG 97247 [facility] HARPE[facility] UTERUS 4 NESTOR NESTOR REAL TIME W/IMAGE DCMTN TRANSVAG IADNA 53488 [facility]PE[facility] NEISSERIA 4 NESTOR NESTOR GONORRHOE AE DIRECT PROBE TQ IAADIADOO 60716 [facility] HARPEL 4 NESTOR NESTOR TRICHOMON VAGINALIS IADNA 94956 [facility] HAR[facility] HERPES 4 NESTOR NESTOR SIMPLX VIRUS DIRECT PROBE TQ URINE 68244 [facility] HARPEL 4 NESTOR NESTOR TEST VISUAL COLOR CMPRSN METHS URINLS 66323 [facility] DIP 4 NESTOR NESTOR STICK/TAB LET REAGNT NON-AUTO MICRSCPY CULTURE 22461 [facility] HARPEL CHLAMYDIA [address] [place] [address] PORFIRIO PORFIRIO ABDOMEN & 4 KARLOS KARLOS PELVIS W/O CONTRAST MATERIAL ANES 177[address] [place] NERVE 2 ANESTHESI ANESTHESI MUSCLE A GROUP A GROUP TDN PSC PSC FASCIA&BU RSA FOREARM WRIST NEUROPLAS 05702 [facility] TY 2 N N &/TRANSPO COMMUNTIY COMMUNTIY S MEDIAN HOSPITA HOSPITA NRV CARPAL TUNNE BASIC 86963 [facility] METABOLIC 2 N N PANEL [facility] [place] CALCIUM HOSPITA HOSPITA TOTAL BLOOD 33176 [facility] COUNT 2 N N COMPLETE [facility] [place] AUTO&AUTO HOSPITA HOSPITA DIFRNTL WBC GONADOTRO 85873 [facility] PIN 2 N N CHORIONIC [facility] [place] HOSPITA HOSPITA QUALITATI VE COLLECTIO 93349 [facility] N VENOUS 2 N N BLOOD [facility] [place] VENIPUNCT HOSPITA HOSPITA URE NEEDLE 34934 [facility] EMG EA 2 [place] EXTREMTY ORTHOPAED W/PARASPI [facility] NL AREA COMPLETE NRV CNDJ 76423 [facility] AMPLT&LAT 2 [place] ENCY EA ORTHOPAED NRV MOTOR [facility] W/F-WAVE STD NRV CNDJ 79777 [facility] TRA AMPLITUDE 2 [place] & ORTHOPAED LATENCY [facility] EACH NERVE SENSORY RADEX 80500 [place] [facility] 1 MEDICAL MEDICAL COMPLETE IMAGING IMAGING MINIMUM 2 ASS ASS VIEWS RADEX 84516 [place] P[place] SHOULDER 1 MEDICAL KARLOS COMPLETE IMAGING MINIMUM 2 ASS VIEWS DOPPLER 04331 [facility] VELOCIMET 1 MEDICAL [place] [address] LALA REEVES TRANSVAGI 1 [facility] NAL INC INC URNLS DIP 99567 LALA REEVES 1 [facility] STICK/TAB INC INC LET REAGENT AUTO MICROSCOP Y BLOOD 22382 LALA REEVES COUNT 1 [facility] COMPLETE INC INC AUTO&[place] [address] LALA REEVES AMYLASE 1 [facility] INC INC COMPREHEN 63791 LALA REEVES SIVE 1 [facility] [place] [address] LALA REEVES LIPASE 1 [facility] INC INC URINE 40520 LALA REEVES 1 [facility] TEST INC INC VISUAL COLOR CMPRSN METHS GONADOTRO 09023 A C AGRAWAL A PIN 1 TANJA HENDRICKS CHORIONIC PSC QUANTITAT COLLETTE WEDGE 78171 LUIS STODDARD HATTIE EXCISION 1 SKIN NAIL FOLD CUL 77129 LALA REEVES PRSMPTV 1 [facility] PTHGNC INC INC ORGANISMS SCR DNS CHART SPECIAL 93794 CHIPPS PICKLESIM STAIN 1 ANAIS & ER JACINTO GROUP 1 DUBILIER MICROORGA NISMS I&R URINE 05766 LALA REEVES 1 [facility] TEST INC [place] [address] LALA REEVES INFUSION 1 [facility] THERAPY INC INC PROPHYLAX IS/DX EA HOUR COLONOSCO 69747 TERRA PINEDA KHANG PY 1 MEDICAL W/BIOPSY SERV SINGLE/MU FOUNDATIO LTIPLE EGD 94189 [place] PINEDA KHANG TRANSORAL 1 MEDICAL BIOPSY SERV SINGLE/MU FOUNDATIO LTIPLE ANES 16386 [facility] LOWER 1 ANESTH INTESTINE OF THE BLUE [place] [address] CHIPPS PICKLESIM SURG 1 ANAIS & ER [facility] PATHOLOGY DUBILIER GROSS&ANABELL ROSCOPIC EXAM ESOPHAGOG 4516 LALA REEVES ASTRODUOD 1 [facility] ENOSCOPY INC INC WITH CLOSED BIOPSY CLOSED 4525 LALA REEVES [ENDOSCOP 1 [facility] IC] INC INC BIOPSY OF LARGE INTESTINE 3D 83397 [place] P[facility] RENDERING 1 MEDICAL KARLOS W/INTERP IMAGING & ASS POSTPROCE SS SUPERVISI ON MRI 74178 [place] P[facility] SPINAL 1 MEDICAL KARLOS CANAL IMAGING CERVICAL ASS W/O CONTRAST MATRL WRIST L3908 ZHEN L.P. ZHEN L.P. HAND 1 ORTHOSIS EXT CONTROL COCK-UP PREFAB GASTRIC 49729 [place] PORFIRIO EMPTYING 1 MEDICAL KARLOS IMAGING IMAGING STUDY ASS C-REACTIV 55734 LALA REEVES E PROTEIN 1 [facility] INC INC BLOOD 30293 LALA REEVES COUNT 1 [facility] COMPLETE INC INC AUTO&AUTO DIFRNTL WBC CUL BACT 15084 LALA REEVES STOOL 1 [facility] AEROBIC INC INC ISOL SALMONELL A&[place] [address] LALA REEVES CLOSTRIDI 1 [facility] [place] [address] LALA REEVES STREPTOCO 1 [facility] CCUS INC [place] A IV D9242 AL[place] DMD AL[place] DMD CONSCIOUS 1 [facility] SEDATION/ ANALG - EA ADD 15 [place] [address] LALA LALA INFUSION 1 [facility] THERAPY/P INC INC ROPHYLAXI S /DX 1ST TO 1 [place] [address] LALA REEVES INFUSION 1 [facility] THERAPY INC INC PROPHYLAX IS/DX EA HOUR URINE 52745 LALA REEVES 1 [facility] TEST INC INC VIS[place] [address] LALA REEVES AMYLASE 1 [facility] [place] [place] [address] LALA [facility]EEVES LIPASE 1 [facility] INC INC COMPREHEN 18048 LALA REEVES SIVE 1 [facility] [place] [address] [facility] NICHOLSONPORFIRIO ABDOMEN & 1 MEDICAL KARLOS PELVIS IMAGING W/O ASS CONTRAST MATERIAL URNLS DIP 63044 LALA REEVES 1 [facility] STICK/TAB INC INC LET REAGENT AUTO MICROSCOP Y BLOOD 76361 LALA REEVES COUNT 1 [facility] COMPLETE INC INC AUTO&AUTO DIFRNTL WBC 3D 27617 [place] PORFIRIO RENDERING 1 MEDICAL KARLOS IMAGING W/INTERP& ASS POSTPROC DIFF WORK STATION IV D9242 ALICIA DMD ALICIA DMD CONSCIOUS 1 [facility] SEDATION/ ANALG - EA ADD 15 MINUTES URNLS DIP 42081 LALA REEVES 1 [facility] STICK/TAB INC INC LET REAGENT AUTO MICROSCOP Y URINE 95213 LALA REEVES 1 [facility] TEST INC INC VISUAL COLOR CMPRSN METHS RADEX 42121 [facility]ORFIRIO SPINE 1 MEDICAL KAR[facility] THORACIC IMAGING 2 VIEWS ASS RADIOLOGI 66802 [facility] NICHOL[facility] C EXAM 1 MEDICAL KARLOS CHEST 2 IMAGING VIEWS ASS FRONTAL&L ATERAL RADEX 81152 LALA REEVES SPINE 1 [facility] THORACIC INC INC [address] [place] [address] LALA REEVES AMYLASE 0 [facility] [place] [place] [address] LALA REEVES LIPASE 0 [facility] INC INC COMPREHEN 38122 LALA REEVES SIVE 0 [facility] METABOLIC INC INC PANEL URINE 22029 L[facility]A REEVES 0 [facility] TEST INC INC VISUAL COLOR CMPRSN METHS CULTURE 93040 LALA REEVES BACTERIAL 0 [facility] INC INC QUANTTATI VE COLONY COUNT URINE CULTURE 74183 LALA REEVES BCT 0 [facility] ISOL&PRSM INC INC PTV ID ISOLATE EA URINE URNLS DIP 43108 [facility]EEVES 0 [facility] STICK/TAB INC [place] [address] LALA REEVES INFUSION 0 [facility] THERAPY/P INC INC ROPHYLAXI S /DX 1ST TO 1 HR BLOOD 14506 LALA REEVES COUNT 0 [facility] COMPLETE INC INC AUTO&AUTO DIFRNTL WBC SUSCEPTIB 23057 LALA REEVES LTY STDY 0 [facility] ANTIMICRB INC INC IAL MICRO/AGA R DILUTJ VAGINAL 93287 TERRA JACOB DELIVERY 0 MEDICAL MATT ONLY SERV W/POSTPAR FOUNDATIO NATALIE CARE NEURAXIAL 64649 [place] FRAGNETO, LABOR 0 MEDICAL SARBJIT Y ANALG/ANE SERV S PLND FOUNDATIO VAGINAL DELIVERY IADNA 88085 [facility] STREPTOCO 0 Y Y CCUS [facility] GROUP B AMPLIFIED PROBE TQ BLOOD 27584 [facility] UNIVERS COUNT 0 Y Y [facility] N GLUCOSE 36943 [facility] QUANTITAT 0 Y Y [facility] XCPT REAGENT STRIP COLLECTIO 34522 [facility] N VENOUS 0 Y Y BLOOD [facility] VENIPUNCT URE BLOOD 65831 [facility] UNIVERS COUNT 0 Y Y [facility] T GROUND A0425 JOSE ALFREDO VELIZ MILEAGE 0 AMBULANCE AMBULANCE PER SERVICE SERVICE STATUTE MILE 56947 [facility] MONITORIN 0 Y Y G [facility] PHYS WRITTEN REPORT 53974 TERRA ISLAS, NONSTRESS 0 MEDICAL ANGELIC F TEST SERV FOUNDATIO AMB A0427 JOSE ALFREDO VELIZ SERVICE 0 AMBULANCE AMBULANCE ALS SERVICE SERVICE EMERGENCY TRANSPORT LEVEL 1 URNLS DIP 63673 [facility] UNIVERSIT 0 Y Y STICK/TAB HOSPITAL HOSPITAL [place] RG[place] [address] [facility]IVERS INFUSION 0 Y Y HYDRATION [facility] INITIAL 31 MIN-[place] [address] [facility]IV[facility] RETROPERI 0 Y Y TONEAL [facility] REAL TIME W/IMAGE LIMITED URNLS DIP 32068 [facility] UNIVERSIT 0 Y Y STICK/TAB [facility] LET REAGENT AUTO MICROSCOP Y BLOOD 14202 [facility]ERS[facility] COUNT 0 Y Y COMPLETE [facility] AUTO&AUTO DIFRNTL WBC CULTURE 31900 [facility] BACTERIAL 0 Y Y [facility] QUANTTATI VE COLONY COUNT URINE [address]394 [place] DEBORAH, NONSTRESS 0 MEDICAL RICARDO C TEST SERV FOUNDATIO 14011 [facility] MONITORIN 0 Y Y G LABOR [facility] PHYS WRITTEN REPORT 68846 [facility] MONITORIN 0 Y Y G LABOR [facility] PHYS WRITTEN REPORT 65452 [place] [facility]-PE NONSTRESS 0 MEDICAL NN, [place] [address] [facility] UNIVERSIT BLOOD/URI 0 Y Y C ACID [facility] URNLS DIP 47223 [facility] UNIVERSIT 0 Y Y STICK/TAB [facility] LET RGNT AUTO W/O MICROSCOP Y COMPREHEN 03552 [facility] SIVE 0 Y Y METABOLIC [facility] [place] [address] [facility] LIPASE 0 Y Y [facility] BLOOD 83270 [facility] COUNT 0 Y Y COMPLETE [facility] AUTOMATED LACTATE 89371 [facility] DEHYDROGE 0 Y Y NASE [facility] INJECTION J2550 [facility] 0 Y Y [facility] TO 50 MG INJECTION J2765 [facility] 0 Y Y [facility] AM[facility] UP TO 10 MG BLOOD 99710 [facility] COUNT 0 Y Y HEMATOCRI [facility] T BLOOD 82556 [facility] COUNT 0 Y Y HEMOGLOBI [facility] N COLLECTIO 74489 [facility] N VENOUS 0 Y Y BLOOD [facility] VENIPUNCT URE GLUCOSE 27723 [facility] POST 0 Y Y GLUCOSE [facility] DOSE IADNA 28368 [facility] CHLAMYDIA 0 Y Y HOSPITAL [facility] [place] [address] [place] MEYERS, NONSTRESS 0 MEDICAL ADRIÁN M TEST SERV FOUNDATIO 17377 [facility] MONITORIN 0 Y Y G LABOR [facility] PHYS WRITTEN REPORT URNLS DIP 72955 [facility] UNIVERS 0 Y Y STICK/TAB [facility] LET REAGENT AUTO MICROSCOP Y FTL 67021 [facility] FIBRONECT 0 Y Y IN [facility] [place]ERVIC[place] [address] [facility] 0 Y Y UTERUS [facility] LIMITED 1/> FETUSES IADNA 24874 [facility] NEISSERIA 0 Y Y HOSPITAL [facility] [place] [address] [facility], NONSTRESS 0 [facility]ALTH AURE J [facility] URNLS DIP 69111 [facility] UNIVERSIT 0 Y Y STICK/TAB [facility] LET [facility]AGENT AUTO MICROSCOP Y BASIC 34761 [facility] METABOLIC 0 Y Y PANEL [facility] [place] [place] [address] [facility] INFUSION 0 Y Y HYDRATION [facility] [place] [address] [facility] UNIVERSIT INFUSION 0 Y Y HYDRATION [facility] INITIAL 31 MIN-1 HOUR INJECTION J2405 [facility] UNIVERSIT 0 Y Y [facility] ON HCL PER 1 MG INJECTION J2550 [facility] 0 Y Y [facility] INE HCL UP TO 50 MG [place] PREG [address] [place] ALMENDAREZ, UTERUS 0 MEDICAL MICHELLE F AFTER 1ST SERV TRIMEST FOUNDATIO GESTATION COLLECTIO 81679 [facility] UNIVERS N VENOUS 9 Y Y [place] [address] [facility] ESTRIOL 9 Y Y [facility] ALPHA-FET 95390 [facility] OPROTEIN 9 Y Y SERUM [facility] GONADOTRO 99822 [facility] PIN 9 Y Y [facility] [place] [address] [facility] 9 Y Y [facility] AMB [id number] [facility] SERVICE 9 [facility]ANCE [facility] ALS SERVICE SERVICE EMERGENCY TRANSPORT LEVEL 1 BASIC 25257 [facility] METABOLIC 9 [facility] PANEL INC INC CALCIUM TOTAL GROUND A0425 [facility] MILEAGE 9 AMBULANCE AMBULANCE [place] [address] [facility] INFUSION 9 [facility] THERAPY/P INC INC ROPHYLAXI S /DX 1ST TO 1 HR BLOOD 57215 [facility] COUNT 9 [facility] COMPLETE INC INC AUTO&[place] [address] [facility] 9 [facility] UTERUS INC INC LIMITED 1/> FETUSES Encounters Encounter Start End Date Code Location Performer Type Date [facility] - 7 7 [facility] OUT[facility] T [facility]ALS OFFICE 42994 [facility] 7 7 [place] AM T VISIT PHYSICIAN 25 S ASSIST MINUTES EMERGENCY 87296 [facility] 7 7 [facility] DEPARTMEN INC T VISIT MODERATE SEVERITY HOSPITAL [facility] Enriquez 7 7 [facility] OUTPATIEN INC T EMERGENCY 40281 NATALIA SHEARER DEPT 7 7 PHYSICIAN VISIT S, [facility] HIGH SEVERITY& THREAT [facility]ALA Enriquez 7 7 [facility] OUTPATIEN INC T OFFICE 63372 [facility] 7 7 PHYSICIAN T VISIT S GROUP 15 MINUTES EMERGENCY 56628 [facility] 7 7 [facility] DEPARTMEN INC T VISIT HIGH/URGE NT SEVERITY EMERGENCY 77670 NATALIA MAHAJAN DEPT 7 7 PHYSICIAN U VISIT S, [facility] HIGH SEVERITY& THREAT [facility] LALA - 7 7 [facility] OFF[facility] 36844 [facility] 7 7 [place] AM T VISIT PHYSICIAN 25 S [facility] - 7 7 [facility] UNIVERSIT - 6 6 [facility] EMERGENCY 15472 NATALIA SHEARER DEPT 6 6 PHYSICIAN ASHLEY VISIT [facility] HIGH SEVERITY& THREAT [facility] EMERGENCY 22074 [facility] 6 6 [facility] T VISIT LIMITED/M INOR [facility] LALA - 6 6 [facility] EMERGENCY 30572 NATALIA MAHAJAN 6 6 PHYSICIAN Kwasi QUINONES [facility], [facility] T VISIT MODERATE SEVERITY HOSPITAL UNIVERSIT - 6 6 [facility] EMERGENCY 40971 NATALIA PRESTON DEPT 6 6 PHYSICIAN ANABELL VISIT , [facility] HIGH SEVERITY& THREAT [facility] LALA - 6 6 [facility] EMERGENCY 79446 [facility] 6 6 [facility] T VISIT HIGH/URGE NT SEVERITY EMERGENCY 56976 [facility] 6 6 [facility] T VISIT LOW/MODER SEVERITY EMERGENCY 35205 NATALIA WATKINS, 6 6 PHYSICIAN JR CANALES [facility], [facility] T VISIT HIGH/URGE NT SEVERITY HOSPITAL [facility] - 6 6 [facility] - 6 6 [facility] OFFICE 10045 [facility] 6 6 PHYSICIAN T NEW 20 S GROUP MINUTES HOSPITAL [facility] - 6 6 [facility] OUTPATIEN INC T HOSPITAL UNIVERSIT - 6 6 [facility] T OFFICE 09847 [facility] ACACIA WIN OUTPATIEN 5 5 PHYSICIAN BOB T NEW 30 S GROUP MINUTES HOSPITAL [facility] - 5 5 [facility] OUTPATIEN INC T EMERGENCY 42392 NATALIA PENA 5 5 PHYSICIAN DAYNE DEPARTIVON S, [facility] T VISIT MODERATE SEVERITY EMERGENCY 98083 [facility] 5 5 [facility] T VISIT LIMITED/M INOR [facility] L[facility] - 5 5 [facility]EN [facility] T OFFICE 72279 A Sonali WRIGHT OUTPATIEN 5 5 TANJA SMITH T VISIT PSC 25 MINUTES OFFICE 02539 A Sonali KUHN OUTPATIEN 5 5 TANJA HENDRICKS T VISIT PSC 15 MINUTES OFFICE 45139 A Sonali WRIGHT OUTPATIEN 5 5 TANJA SMITH T VISIT PSC 15 MINUTES HOSPITAL [facility] - 5 5 [facility] INPATIENT INC OFFICE 74113 [facility] NAGY OUTPATIEN 5 5 PHYSICIAN MARINO T VISIT S GROUP 15 MINUTES HOSPITAL [facility] - 5 5 [facility] OUTPATIEN INC T OFFICE 80822 [facility] NAGY OUTPATIEN 5 5 PHYSICIAN MARINO T VISIT S GROUP 15 MINUTES OFFICE 90997 [facility] NAGY OUTPATIEN 5 5 PHYSICIAN MARINO T VISIT S GROUP 15 MINUTES HOSPITAL [facility] - 5 5 [facility] OUTPATIEN INC T OFFICE 50882 [facility] NAGY OUTPATIEN 5 5 PHYSICIAN MARINO T VISIT S GROUP 15 MINUTES OFFICE 73808 [facility] NAGY OUTPATIEN 5 5 PHYSICIAN MARINO T VISIT S GROUP 15 MINUTES HOSPITAL [facility] - 5 5 [facility] OUTPATIEN INC T OFFICE 51291 [facility] NAGY OUTPATIEN 5 5 PHYSICIAN MARINO T VISIT 5 S GROUP MINUTES OFFICE 13837 [facility] NAGY OUTPATIEN 5 5 PHYSICIAN MARINO T VISIT S GROUP 15 MINUTES HOSPITAL UNIVERSIT - [address] [facility] - 5 5 [facility]EN [facility] T HOSPITAL [facility] 4 4 [facility]PAT[facility]EN [facility] T EMERGENCY 02613 [facility] 4 4 [facility] T VISIT HIGH/URGE NT SEVERITY EMERGENCY 94768 [facility] TORRES 4 4 [facility] T VISIT P MODERATE SEVERITY HOSPITAL [facility] - 4 4 [facility] EM[facility] 61254 [facility] RESENDEZ 4 4 [facility] T VISIT P MODERATE SEVERITY EMERGENCY 90531 [facility] 4 4 [facility] T VISIT LIMITED/M INOR PROB OFFICE 86102 [facility] LILO LAMAEN 4 4 PHYSICIAN MARINO T VISIT S GROUP 15 MINUTES HOSPITAL [facility] - 4 4 [facility] T OFFICE 33987 [facility] LILO OUTPATIEN 4 4 PHYSICIAN MARINO T VISIT S GROUP 15 MINUTES OFFICE 25996 ABBY HAERN 4 4 ALEJO BAEZ T VISIT 15 MINUTES HOSPITAL [facility] - 4 4 [facility] OUTPATIEN [facility] - 4 4 [facility] T EMERGENCY 20190 [facility] 4 4 [facility] T VISIT HIGH/URGE NT SEVERITY EMERGENCY 77666 [facility] 4 4 MAE DEPARTMEN EMERGENCY T VISIT PHYS MODERATE SEVERITY OFFICE 76932 ABBY R HARPEL OUTPATIEN 4 4 ALEJO HENDRICKS NESTOR T VISIT 15 MINUTES OFFICE 12073 HARPEL HARPEL OUTPATIEN 4 4 NESTOR NESTOR T VISIT 15 MINUTES OFFICE 42761 HARPEL HARPEL OUTPATIEN 4 4 NESTOR NESTOR T VISIT 15 MINUTES INITIAL 83358 HARPEL HARPEL PREVENTIV 4 4 NESTOR NESTOR E MEDICINE NEW PT AGE 18-39YRS EMERGENCY 03022 KARY PRESTON DEPT 4 4 ANABELL ANABELL VISIT HIGH SEVERITY& THREAT FUNCJ OFFICE 78873 SANDOVAL CHAUDHRYPATIEN 4 4 ARLENE ARLENE T VISIT 15 MINUTES OFFICE 79172 LUIS HATTIE LUIS HATTIE OUTPATIEN 4 4 T VISIT 15 MINUTES OFFICE 85687 FIELD AMB FIELD AMB OUTPATIEN 4 4 T VISIT 15 MINUTES OFFICE 34053 [place] OUTPATIEN 2 2 MEDICAL T VISIT SERV 15 FOUNDATIO MINUTES OFFICE 26203 [place] OUTPATIEN 2 2 MEDICAL T VISIT SERV 15 FOUNDATIO MINUTES [facility] [place] [address] 2 N OUTPATIEN [facility] [place] [address] 2 N OUTPATIEN COMMUNITY T HOSPITA OFFICE 50754 [facility] OUT[place] 2 2 [place] T VISIT ORTHOPAED [facility] MINUTES OFFICE 33752 SANDOVAL NICK OUTPATIEN 2 2 ARLENE ARLENE T NEW 30 MINUTES HOSPITAL [facility] - 2 2 [facility] OUTPATIEN INC T EMERGENCY 55309 [facility] 2 2 [facility] DEPARTMEN INC T VISIT LOW/MODER SEVERITY EMERGENCY 49218 REMBERTO YOLANDA OSCAR 2 2 EMERGENCY DEPARTMEN SERVICES T VISIT MODERATE SEVERITY HOSPITAL JAMALW - 1 1 N OUTPATIEN COMMUNITY T HOSPITA EMERGENCY 75001 REMBERTO REEVES 1 1 EMERGENCY SCO DEPARTMEN SERVICES T VISIT MODERATE SEVERITY EMERGENCY 90072 [facility] 1 1 N DEPARTMEN COMMUNITY T VISIT HOSPITA LOW/MODER SEVERITY EMERGENCY 38453 REMBERTO SR 1 1 EMERGENCY EMERGENCY DEPARTMEN SERVICES SERVICES T VISIT HIGH/URGE NT SEVERITY EMERGENCY 59549 [facility] 1 1 [facility]MODER SEVERITY [facility] - 1 1 [facility] T OFFICE 78407 A Sonali Stewart OUTPATIEN 1 1 TANJA HENDRICKS T VISIT PSC 15 MINUTES HOSPITAL [facility] - 1 1 [facility] T OFFICE 83659 TERRA QUIÑONEZ OUTPATIEN 1 1 MEDICAL T VISIT SERV 25 FOUNDATIO MINUTES PERIODIC 07899 TERRA BRICEÑOIV 1 1 MEDICAL MATT E MED EST SERV PATIENT FOUNDATIO 18-39 YRS HOSPITAL [facility] 1 1 [facility] OUTPATIEN INC T EMERGENCY 54152 REMBERTO PRESTON 1 1 EMERGENCY [facility] DEPARTMEN SERVICES T VISIT HIGH/URGE NT SEVERITY EMERGENCY 32185 [facility] 1 1 [facility] VISIT MODERATE SEVERITY [facility] - 1 1 [facility] OUTPATIEN INC T OFFICE 27774 Pat Stewart OUTPATIEN 1 1 TANJA HENDRICKS T VISIT PSC 15 MINUTES OFFICE 50002 TERRA QUIÑONEZ OUTPATIFORD 1 1 MEDICAL T VISIT SERV 25 FOUNDATIO MINUTES OFFICE 16630 LUIS KUHN OUTPATIEN 1 1 T VISIT 15 MINUTES HOSPITAL [facility] - 1 1 [facility]EN [facility] LALA - 1 1 [facility] OUTPATIEN [facility] T OFFICE 03685 A Sonali Stewart OUTPATIEN 1 1 TANJA HENDRICKS T VISIT PSC 15 MINUTES EMERGENCY 78002 REMBERTO LIPSCOMB 1 1 EMERGENCY III [facility] EMERGENCY DEPARTMENT SERVICES T VISIT MODERATE SEVERITY EMERGENCY 58865 [facility] 1 1 [facility] T VISIT LOW/MODER SEVERITY HOSPITAL [facility] - 1 1 [facility] LALA [facility] 1 1 [facility] T OFFICE 64749 A Sonali Stewart OUTPATIEN 1 1 TANJA HENDRICKS T VISIT PSC 15 MINUTES HOSPITAL [facility] - 1 1 [facility] OUTPATIEN [facility] OFFICE 74891 [place] EDWIN KHANG OUTPATIEN 1 1 MEDICAL T VISIT SERV 40 FOUNDATIO MINUTES OFFICE 56069 A Sonali Stewart OUTPATIEN 1 1 TANJA HENDRICKS T VISIT PSC 15 MINUTES EMERGENCY 04650 REMBERTO OSCAR 1 1 EMERGENCY DEPARTMEN SERVICES T VISIT MODERATE SEVERITY EMERGENCY 71364 [facility] 1 1 [facility] T VISIT LOW/MODER SEVERITY HOSPITAL [facility] - 1 1 [facility] OFFICE 26890 A Sonali Stewart OUTPATIEN 1 1 TANJA HENDRICKS T VISIT PSC 15 MINUTES EMERGENCY 96554 [facility] 1 1 [facility] T VISIT HIGH/URGE NT SEVERITY EMERGENCY 49212 REMBERTO PRESTON DEPT 1 1 EMERGENCY ANABELL VISIT SERVICES HIGH SEVERITY& [facility] 1 [facility] OUTPATIEN [facility] T OFFICE 94659 A Sonali Stewart OUTPATIEN 1 1 TANJA HENDRICKS T VISIT PSC 15 MINUTES EMERGENCY 34671 REMBERTO OSCAR 1 1 EMERGENCY DEPARTMEN SERVICES T VISIT HIGH/URGE NT SEVERITY EMERGENCY 24357 [facility] 1 1 [facility] T VISIT LOW/MODER SEVERITY HOSPITAL [facility] - 1 1 [facility] 1 [facility] OFFICE 40584 A Sonali Stewart OUTPATIFORD 1 1 TANJA HENDRICKS T VISIT PSC 15 MINUTES OFFICE 00278 NADIYA FALLON 0 0 MEDICAL JERAD B [facility]14 Pat ARCOS OUTPATIEN 0 0 TANJA Lyon T NEW 20 PSC [facility] H[facility]PITAL [facility] 0 0 [facility] 85956 REMBERTO LIPSCOMB 0 0 EMERGENCY III, DEPARTMEN SERVICES ERIKA T VISIT HIGH/URGE ASSOCIATE NT S SEVERITY OFFICE 74792 NADIYA PAZ 0 0 NURSE BELLO T VISIT PRACTITIO 15 [facility] UNIVERSIT - 0 0 Y [facility] OFF[facility] 14442 NADIYA FALLON 0 0 MEDICAL JERAD B T VISIT SERV 15 [facility] UNIVERSIT - 0 0 Y [facility] UNIVERSIT - 0 0 Y [facility] UNIVERSIT - 0 0 Y [facility] T OFFICE 40947 NADIYA FALLON 0 0 MEDICAL JERAD B T VISIT SERV 15 [facility] UNIVERSIT - 0 0 Y [facility] UNIVERSIT - 0 0 Y [facility] UNIVERSIT - 0 0 Y [facility] OFFICE 42079 [facility]IT [facility] 0 0 Y T [facility]ISIT [address] UNIVERSIT - 0 0 Y [facility] UNIVERSIT - 9 9 Y [facility] EMERGENCY 37919 [facility] 9 9 [facility] T VISIT HIGH/URGE NT [facility] 9 9 [facility] T
--- OUTSIDE RECORDS SUMMARY | 2017-01-26 17:35 | External Medical Summary Rpt ---
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 Car Barn Name Role Phone A Sonali AGRAWAL MD PSC, Pat Unavailable Unavailable Sonali AGRAWAL MD PSC ALLRAN JR BOB, ALLRAN Unavailable Unavailable JR BOB ARNOLD ARLENE, ARNOLD Unavailable Unavailable ARLENE REESE AAR, REESE Unavailable Unavailable AAR BEINEKE, BEINEKE Unavailable Unavailable WELLS TER, WELLS TER Unavailable Unavailable BESSON HATTIE, BESSON Unavailable Unavailable HATTIE PATEL ALL, PATEL ALL Unavailable Unavailable [facility] Unavailable Unavailable SERVICE, [facility] Unavailable Unavailable [facility] CHIPPS ANAIS & Unavailable Unavailable DUBILIER, CHIPPS ANAIS & DUBILIER LILO, NAGY Unavailable Unavailable NAGY MARINO, NAGY Unavailable Unavailable MARINO AURE NAGY, Unavailable Unavailable AURE NAGY [facility] Unavailable Unavailable [place], [facility] Un[facility] PORFIRIO, PORFIRIO Unavailable Unavailable PORFIRIO KARLOS, Unavailable Unavailable PORFIRIO KARLOS PORFIRIO KARLOS, Unavailable Unavailable PORFIRIO KARLOS [facility] Unavailable Unavailable BEHAVIORAL, [facility] Unavailable Unavailable [facility] Unavailable Unavailable FIELD AM[facility], FIELD AMB Unavailable Unavailable FIELD AMB, FIELD AM[facility] Unavailable Unavailable FRAGNETO, SARBJIT Y, Unavailable Unavailable FRAGNETO, SARBJIT Y Pat MARIA, Pat MARIA Unavailable Unavailable M JR PARKER WATKINS, Unavailable Unavailable JR PARKER WATKINS KARY ANABELL, KARY Unavailable Unavailable ANABELL KARY ANABELL, KARY Unavailable Unavailable ANABELL DEOBRAH, RICARDO C, Unavailable Unavailable DEBORAH, RICARDO C [facility] Unavailable Unavailable [facility] Unavailable [facility] GUERRERO DAYNE, GUERRERO DAYNE Unavailable Unavailable MICHELLE ALMENDAREZ F, Unavailable Unavailable ALMENDAREZMICHELLE F HARPEL NESTOR, HARPEL Unavailable Unavailable NESTOR HARPEL NESTOR, HARPEL Unavailable Unavailable NESTOR LALA SCO, Unavailable Unavailable L[facility]A SCO [facility] Unavailable Unavailable INC, [facility] Un[facility] Unavailable [facility]PITAL P, [facility], Unavailable Unavailable [facility] MELGOZA TRA, MELGOZA TRA Unavailable Unavailable [facility] Un[facility] Unavailable IM[facility], [facility] KILPELA JEA, KILPELA Unavailable [...] JERAD B, Unavailable Unavailable JACOB, JERAD B [facility] Unavailable Unavailable SERVICES, [facility] Unavailable Unavailable SERVICES, [facility] MELISSA CHI, MELISSA Unavailable Unavailable ARTI MCKEMIE JR LU, Unavailable Unavailable MCKEMIE JR LU ALICIA [facility], ALICIA Unavailable Unavailable [facility] ALICIA DMD [facility], ALICIA Unavailable Unavailable [facility] MIDBOE-HENRIK, WILBUR Unavailable Unavailable R, MIDBOE-HENRIK, WILBUR [...] VELASQUEZ RUDOLPH M, Unavailable Unavailable ADRIÁN MEYERS [facility] Unavailable Unavailable HOSPITALS, [facility]available Unavailable ASSIST, [facility], Unavailable Unavailable [facility] # Unavailable Unavailable [id number], [facility] # [id number] [id number] # Unavailable Unavailable [id number], [id number] # [id number] WEHRMAN III LU, [...] Provider Status [id number] CROHNS 11-24-2016 [place] DISEASE [facility] HEALTHCARE WITHOUT HOSPITALS COMPLICATIO NS 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 F68327 UNSPECIFIED 11-04-2016 [facility] [facility] CYST RIGHT INC SIDE N939 ABNORMAL 11-04-2016 [facility] UTERINE & PHYSICIANS, VAGINAL PLLC BLEEDING UNSPECIFIED R102 PELVIC AND 11-04-2016 [facility] PERINEAL PHYSICIANS, PAIN PLLC R1030 LOWER 11-04-2016 [place] [facility]BDOMINAL [facility]ICAL PAIN IMAGING ASS UNSPECIFIED Z0189 ENCOUNTER 10-23-2016 [facility] SPECIFIED SPECIAL EXAMINATION S Z302 ENCOUNTER 10-23-2016 [facility] STERILIZATI GROUP ON N8312 CORPUS 10-02-2016 [facility] LUTEUM CYST PHYSICIANS OF LEFT GROUP OVARY R1032 LEFT LOWER 10-02-2016 [facility] QUADRANT PHYSICIANS PAIN GROUP Z3009 ENCOUNTER 10-02-2016 [facility] OT GENERAL PHYSICIANS GROUP VESSEL MASTER&ADV ICE CONTRACEPT C12797 UNSPECIFIED 09-18-2016 [facility] O[facility]IAN [facility], CYST LEFT PLLC SIDE R109 UNSPECIFIED 09-18-2016 [place] ABDOMINAL [facility]ICAL PAIN IMAGING ASS R938 ABNORMAL 09-18-2016 [place] FIND ON DX MEDICAL IMAGING OT IMAGING ASS SPEC BODY STRCT Z720 TOBACCO USE 09-18-2016 [facility] INC E559 VITAMIN D 07-13-2016 [facility] P68935 CROHNS 07-13-2016 [facility]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 LARGE ASSIST INTESTINE WITH FISTULA E8351 HYPOCALCEMI 01-01-2016 [facility], PLLC E876 HYPOKALEMIA 01-01-2016 [facility] ORTEGA, PLL R42 DIZZINESS 01-01-2016 [facility] AND [facility], GIDDINESS PLLC Q57708 SWIMMERS 11-24-2015 [facility] EAR PHYSICIANS, BILATERAL PLLC J029 ACUTE 11-24-2015 [facility] PHARYNGITIS PHYSICIANS, PLLC UNSPECIFIED W83334 UNSPECIFIED 09-13-2015 [facility] UNCOMPLICAT INC ED R1012 LEFT UPPER 09-13-2015 [facility] QU[facility]ANT [facility], PAIN PLLC J069 ACUTE UPPER 09-05-2015 [facility], RESPIRATORY PLLC INFECTION UNSPECIFIED R05 COUGH 09-05-2015 [facility] R12 HEARTBURN 08-30-2015 [facility] Z8719 PERSONAL 08-30-2015 [place] [facility] OTHER DISEASES DIGESTIVE SYSTEM J020 STREPTOCOCC 08-28-2015 [facility] AL PHYS[facility]IANS PHARYNGITIS GROUP K921 MELENA 08-04-2015 [facility] K5900 CONSTIPATIO 06-19-2015 [facility] N PHYSICIANS, UNSPECIFIED PLLC K5909 OTHER 06-19-2015 [facility]ST[facility] N INC R77101Z ADVERSE 06-19-2015 [facility] EFFECT UNS [facility] NARCOTICS INC INITIAL ENCOUNTER R1110 VOMITING 06-04-2015 [facility] UNSPECIFIED [facility] INC R112 NAUSEA WITH 06-04-2015 [place] VOMITING MEDICAL UNSPECIFIED IMAGING ASS H6690 OTITIS 06-02-2015 A Sonali AGRAWAL MEDIA [facility] UNSPECIFIED UNSPECIFIED EAR N3000 ACUTE 05-11-2015 A Sonali AGRAWAL CYSTITIS [facility] WITHOUT HEMATURIA R300 DYSURIA 05-11-2015 A Sonali AGRAWAL MD PSC 20990 ESOPHAGEAL 12-14-2014 A Sonali AGRAWAL REFLUX PSC 7079 CHRONIC 12-14-2014 A Sonali AGRAWAL ULCER OF [facility] UNSPECIFIED SITE V8533 BODY MASS 12-14-2014 A Sonali AGRAWAL INDEX PSC 33.0-33.9 ADULT V255 INSERTION 10-14-2014 [facility] [place] [address] THREATENED 09-09-2014 [facility] PREMATURE PHYSICIANS LABOR GROUP ANTEPARTUM 72798 OTH CURRENT 09-09-2014 [facility] CCE INC W/DELIVERY 650 NORMAL 09-09-2014 [facility] DELIVERY ANESTH OF THE [place]UE 32128 FIRST-DEGRE 09-09-2014 [facility] E PERINEAL PHYSICIANS LACERATION GROUP WITH DELIVERY V0251 CARRIER/IDANIA 09-09-2014 [facility] PECTED [facility] CARRIER INC GROUP B STREPTOCOCC US V270 OUTCOME OF 09-09-2014 [facility] DELIVERY PHYSICIANS SINGLE GROUP LIVEBORN V221 SUPERVISION 09-02-2014 [facility] OF OTHER PHYSICIANS NORMAL GROUP 79543 OTHER 08-30-2014 [place] THREATENED [facility], INC ANTEPARTUM 01121 DECR 08-11-2014 [facility] MOVMNTS PHYSICIANS MGMT MOTH GROUP ANTPRTM COND/COMP 47352 ABNORMAL 07-17-2014 [facility] MATERNAL PHYSICIANS GLUCOSE GROUP TOLERANCE ANTEPARTUM V195 FAMILY 07-09-2014 [place] [facility] OF SERV CONGENITAL [facility] ANOMALIES 21159 DEHYDRATION 06-29-2014 [facility] 490 BRONCHITIS 06-29-2014 [facility] P ACUTE OR CHRONIC 54407 VOMITING 06-29-2014 [facility] P 27312 DIARRHEA 06-29-2014 [facility] P V222 06-29-2014 [facility] [place] P 4660 ACUTE 06-26-2014 [place] BRONCHITIS [facility] P 39838 ASTHMA, 06-26-2014 [place] UNSPECIFIED [facility] P UNSPECIFIED STATUS V140 PERSONAL 06-26-2014 [place] HISTORY OF [facility] ALLERGY TO [facility] P PENICILLIN V1582 PERS HX 06-26-2014 [place] TOBACCO USE [facility] P [facility] V220 SUPERVISION 06-22-2014 [facility] OF NORMAL PHYSICIANS FIRST GROUP 93364 OTH CURRENT 06-08-2014 [place] MAT CONDS [facility] CLASSIFIABL INC E ELSW ANTPRTM 37465 OTHER 03-25-2014 [facility] SPECIFED N EMERGENCY COMPLICATIO PHYS N ANTEPARTUM 6826 CELLULITIS 03-25-2014 [facility] AND ABSCESS N EMERGENCY OF LEG PHYS EXCEPT FOOT 19519 OTHER 03-25-2014 [facility]IONS [facility] INC 16101 EXCESS 01-26-2014 [facility] NESTOR GROWTH AFFECT MGMT MOTH ANTPRTM V2889 OTHER 01-19-2014 [facility] NESTOR SPECIFIED SCREENING V7231 ROUTINE 01-19-2014 [facility] NESTOR GYNECOLOGIC AL EXAMINATION 7804 DIZZINESS 11-04-2013 KARY ANABELL AND GIDDINESS 21242 ABDOMINAL 11-04-2013 [facility] PAIN OTHER KARLOS SPECIFIED SITE V4589 OTHER 11-04-2013 [facility] POSTSURGICA KARLOS L STATUS OTHER 4659 ACUTE URIS 10-07-2013 LUIS HATTIE OF UNSPECIFIED SITE 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 32457 DECREASED 12-14-2011 [place] [facility] LIB[facility] FOUNDAT[facility] 06899 ABDOMINAL 09-04-2011 [place] [facility] PA[facility], SERV GENERALIZED FOUNDATION 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 16254 LATERAL 08-16-2011 [facility] EPICONDYLIT [facility]TIY IS [facility] V7283 OTHER 08-15-2011 [facility] SPECIFIED COMMUNITY PRE-OPERATI HOSPITA VE EXAMINATION 7295 PAIN IN 08-04-2011 [facility] [place] SOFT [facility] TISSUES OF S PLC LIMB 4619 ACUTE 06-17-2011 [facility] SINUSITIS, EMERGENCY UNSPECIFIED SERVICES 7937 NONSPC ABN 05-09-2011 [place] FINDNG RAD MEDICAL & OTH EXM IMAGING ASS MUSCULSKELT L SYS 8409 SPRAIN&STRA 05-09-2011 [facility] IN UNSPEC EMERGENCY SITE SERVICES SHOULDER&UP PER ARM E8889 UNSPECIFIED 05-09-2011 [place] FALL MEDICAL IMAGING ASS 96910 UNSPEC 04-04-2011 Pat FONSECA MD PSC BURSAE&TEND ONS SHOULDER REGION 18829 PAIN IN 03-30-2011 [place] JOINT, MEDICAL SHOULDER IMAGING ASS REGION 58418 NAUSEA 03-27-2011 [place] [facility] ALONE [facility] FOUNDAT[facility] 6259 UNSPEC 03-16-2011 [place] [facility] SYMPTOM SERV ASSOC FOUNDATIO W/FEMALE GENITAL ORGANS 6202 OTHER AND 03-07-2011 [place] UNSPECIFIED MEDICAL OVARIAN IMAGING ASS CYST 6264 IRREGULAR 03-07-2011 [facility] CYCLE INC 6253 DYSMENORRHE 02-26-2011 [facility] A [facility] INC 6268 OTH D/O 02-26-2011 [facility] MENSTRUATIO EMERGENCY N&OTH ABN SERVICES BLEED FE GNT TRACT 26146 NAUSEA WITH 02-13-2011 [place] [facility] VOMITING SERV FOUNDATIO 7030 INGROWING 02-09-2011 LUIS HATTIE NAIL 8472 LUMBAR 02-09-2011 LUIS HATTIE SPRAIN AND STRAIN 85402 ATROPHIC 02-06-2011 [facility] GASTRITIS ANAIS & WITHOUT DUBILIER MENTION OF HEMORRHAGE 64742 OTHER SPEC 02-06-2011 [place] [facility] GASTRITIS SERV WITHOUT FOUNDATIO MENTION HEMORRHAGE 5781 BLOOD IN 02-06-2011 [place] [facility] STOOL [facility] 7873 FLATULENCE 02-06-2011 [place] [facility] ERUCTATION SERV AND GAS FOUNDATIO PAIN 82029 ABDOMINAL 02-06-2011 [place] [facility] PAIN, SERV UNSPECIFIED FOUNDATIO SITE 7231 CERVICALGIA 01-30-2011 [facility] 7234 BRACHIAL 01-30-2011 [facility] NEURITIS OR [facility] INC RADICULITIS NOS 07213 PAIN IN 01-23-2011 [facility] JO[facility], EMERGENCY FOREARM SERVICES 20491 PAIN IN 01-23-2011 [facility] JOINT, HAND MEM [facility]OS[facility] INC 68565 SPRAIN AND 01-23-2011 [facility] STRAIN OF UNSPECIFIED SITE OF WRIST 73611 UNSPECIFIED 12-27-2010 Pat AGRAWAL MD PSC CONJUNCTIVI TIS 3829 UNSPECIFIED 12-11-2010 [facility] OTITIS EMERGENCY MEDIA SERVICES 5210 DENTAL 12-08-2010 [facility] DMD [facility] 44534 ABDOMINAL 11-24-2010 [place] PAIN, MEDICAL PERIUMBILIC IMAGING ASS 7242 LUMBAGO 09-27-2010 Pat AGRAWAL MD PSC 7245 UNSPECIFIED 09-22-2010 [facility] BACKACHE EMERGENCY SERVICES 7241 PAIN IN 09-14-2010 [place] THORACIC MEDICAL SPINE IMAGING ASS 20477 OTHER CHEST 09-14-2010 [place] PAIN MEDICAL IMAGING ASS V242 ROUTINE 12-30-2009 [facility] SERV FOLLOW-UP FOUNDATIO 5990 URINARY 12-25-2009 [facility] TRACT EMERGENCY INFECTION SERVICES SITE NOT ASSOCIATES SPECIFIED 55863 PREMATURE 11-09-2009 [facility] RUPTURE SERV MEMBRANES FOUNDATIO DELIVERED 62154 FORCEPS/EXT 11-09-2009 [place] [facility] RACTOR DEL SERV W/O FOUNDATIO INDICATION- DELIVERED V2389 SUPERVISION 11-09-2009 [place] [facility]ICAL OF OTHER SERV HIGH-RISK FOUNDATIO 01650 THREATENED 10-13-2009 [facility] PREMATURE AMBULANCE LABOR SERVICE UNSPEC EPIS CARE 591 HYDRONEPHRO 10-12-2009 [facility] SIS [facility] FOUNDAT[facility] 37273 UNSPECIFIED 10-12-2009 [facility] RENAL DISEASE 53536 INFECTIONS 09-27-2009 [place] [facility] OF SERV GENITOURINA FOUNDATIO RY TRACT ANTEPARTUM 78197 BN&JNT D/O 09-22-2009 [facility] MAT BACK SERV PELVIS&LW FOUNDATIO LIMBS ANTEPARTUM 99328 HYPEREMESIS 09-16-2009 [facility] W/METAB FOUNDATIO DISTURBANCE ANTPRTM 94014 LATE 09-16-2009 [facility] ANTEPARTUM 97478 ABDOMINAL 09-16-2009 [facility] PA[facility] RIGHT [facility] UPPER QUADRANT 39336 ABDOMINAL 09-16-2009 [facility] EPIGASTRIC 0088 INTESTINAL 08-02-2009 [facility] DUE TO OTHER ORGANISM NEC 7802 SYNCOPE [...] ve TA 11 20 20 18 AI LA 21 17 17 33 D N 0 [...] 1 58 PH CE AR TA MA LA CY NO PH #3 93 7. 8 5- 32 5 DI 00 04 05 12 30 00 RI Ac CY 37 -2 -2 0. 00 TE ti CL 81 3- 6- 00 01 ve OM 62 20 20 0 17 AI IN 00 17 17 66 D E 1 07 PH 20 AR MA MG CY TA #3 BL [address] 65 04 05 30 5 00 RI [...] CY TA #3 BL [address] 10 02 03 30 7 00 RI [...] 02 03 [address] 14 -1 -2 .0 00 TE ti [...] 0 MG #[address] 10 02 03 30 7 00 RI [...] ve TA 11 20 20 16 AI LA 21 17 17 72 D N 0 [...] CE 0 PH DY TA AR C LA MA NO CY PH # N 37 [...] CE 0 PH DY TA AR C LA MA NO CY PH # N 37 10 .5 05 -3 91 25 TR 65 10 10 1 24 6 WA 44 WR Ac AM 16 -0 -0 .0 L- 96 IG ti AD 20 4- 4- 00 MA 66 HT ve OL 61 20 20 RT 5 -A 71 11 11 AR CE 0 PH DY TA AR C LA MA NO CY PH # N 37 [...] 20 RT 5 AC 11 11 11 LA 0 PH CH SO AR AE D MA L EC CY S # 75 10 MG [address] 37 08 08 1 30 30 WA [...] MA A CY # [address] 00 07 07 0 14 7 WA [...] -2 -2 00 L- [address] 90 7- 1- 0 MA 90 ve EP 20 20 20 RT 1 ADRIANO 17 11 11 IS PO 5 PH R WD AR ER MA CY PA # CK ET 10 05 91 CI 61 06 06 0 5. 6 WA [address] 31 -2 -2 00 L- 24 SE [...] 11 11 RI E [address] AR AR OP MA D CY 50 [...] ME 00 06 06 0 21 6 OK 71 RI Ac TH 60 -1 -1 .0 L- 23 SH ti YL 34 6- 6- 00 MA [address] 59 20 20 RT 3 ED 31 [...] 91 00 04 04 0 20 1 OK 44 MC Ac 40 -1 -1 .0 L- 93 IL ti 60 5- 5- 00 MA 07 VA ve 35 20 20 RT 3 IN 70 11 11 5 PH JA AR SO MA N CY J # 10 05 91 ME 00 04 04 0 21 6 OK 71 MC Ac TH 60 -1 -1 .0 L- 15 IL ti YL 34 5- 5- 00 MA [address] 59 20 20 RT 8 IN ED 31 11 11 NI 5 PH JA SO AR SO LO MA N NE CY J 4 # MG 10 05 DO [address] 68 04 04 0 15 3 OK 71 MC Ac OM 38 -1 -1 .0 L- 15 IL ti ET 20 5- 5- 00 MA 40 VA ve ARRIAGA 04 20 20 RT 0 IN ZI 10 11 11 NE 1 PH JA AR SO 25 MA N CY J MG # TA 10 BL 05 ET 91 CL 63 04 04 0 28 7 OK 71 MC Ac IN 30 -1 -1 .0 L- 15 IL ti DA 40 5- 5- 00 MA 40 VA ve MY 69 20 20 RT 2 IN CI 20 11 11 N 1 PH JA HC AR SO L MA N 15 CY J 0 # MG 10 CA 05 PS 91 UL E 00 04 04 0 20 1 OK 44 MC Ac 40 -1 -1 .0 [...] 0 6. 3 [place] [address] 11 -2 -2 00 L- 76 HR [...] TA # BL ET [address] 65 05 05 5 30 30 WA [...] 10 05 CA [address] 65 09 04 11 30 30 WA [...] 20 RT 5 AN 20 09 10 LA TO 1 PH RI IN AR AM MA B MO CY NO # -M CR 10 05 10 91 0 MG CY 59 03 03 1 30 10 WA 28 GA Ac CL 74 -2 -2 .0 LG 60 MB ti OB 60 9- 9- 00 RE 25 RE ve EN 21 20 20 EN 1 LL ZA [address] 6 #4 AL IN 89 IS E 2 A 5 # C MG 48 92 TA BL ET FL 00 03 03 0 2. 3 WA 70 MA Ac UC 17 -0 -0 00 L- 61 RC ti ON 25 8- 8- 0 MA 56 UM ve AZ 41 20 20 RT 0 OL 21 10 10 LA E 1 PH RI 15 AR AM 0 MA B MG CY # TA BL 10 ET 05 91 NI 00 11 03 6 30 30 WA 70 MA Ac TR 37 -3 -0 .0 L- 61 RC ti OF 83 0- 7- 00 MA 42 UM ve UR 42 20 20 RT 5 AN 20 09 10 LA TO 1 PH RI IN AR AM MA B MO CY NO # -M CR 10 05 [address] 65 09 03 11 30 30 WA 70 ARRIAGA Ac EN 16 -2 -0 .0 L- 38 LL ti AT 20 9 7- 00 MA 99 ve AL 66 20 20 RT 7 LI [address] 0 PH R US AR MA TA CY BL # ET 10 05 91 Procedures Procedure DOS Code Location Performer Comment COMPREHEN 68963 [facility] SIVE 7 [facility] METABOLIC E E PANEL [facility]OS[facility]ALS [facility]ITALS BLOOD 14141 [facility] COUNT 7 [facility]ALTH[facility] HEALTHCAR COMPLETE E E AUTO&AUTO HOSPITALS HOSPITALS DIFRNTL WBC COLLECTIO 08684 [facility] N VENOUS 7 HEALTH[facility] HEALTHCAR BLOOD E E VENIPUNCT [facility] URE C-REACTIV 34433 [facility] E PROTEIN 7 HEALTH[place] [address] [facility] SE[facility]STIAN ABDOMEN & 7 MEDICAL PELVIS IMAGING W/O ASS CONTRAST MATERIAL FINAL G9638 [facility] SE[facility]IAN REPORTS 7 MEDICAL W/O DOC IMAGING 1/MORE ASS DOSE REDUCTION TECH BLOOD 59311 [facility] COUNT 7 MEM HOSP MEM [facility]OS[facility] COMPLETE INC INC AUTO&AUTO DIFRNTL WBC FINAL G9551 [facility] KURTZ REPR ABD 7 MEDICAL IMAG STS IMAGING W/O ASS INCIDNT FND LES NTD: URNLS DIP 63216 [facility] STICK/TAB INC INC LET REAGENT AUTO MICROSCOP Y COMPREHEN 61258 [facility] SIVE 7 MEM HOSP [facility] [place] [address] [facility] LIPASE 7 [place] [address] [facility] AMYLASE 7 MEM HOSP MEM HOSP INC INC URINE 82971 [facility] 7 MEM [facility]OS[facility] MEM HOSP TEST INC INC VISUAL COLOR CMPRSN METHS URINE 00322 [facility]EEVES 7 MEM HOSP MEM HOSP TEST INC INC VISUAL COLOR CMPRSN METHS BASIC 64498 [facility] METABOLIC 7 MEM HOSP MEM HOSP PANEL INC INC CALCIUM TOTAL BLOOD 70935 [facility] COUNT 7 MEM HOSP MEM HOSP COMPLETE INC INC AUTO[place] [address] [facility], VILLAFUERTE SURG 7 [facility] PATHOLOGY GROSS&ANABELL ROSCOPIC EXAM ANESTHESI 85297 [place] [address] ANESTH INTRAPERI OF THE TONEAL BLUE LOWER ABD W/LAPS NOS LAPAROSCO 78484 [facility] L[facility] PY W/RMVL 7 [place] [address] [facility] TRANSVAGI 7 PHYSICIAN NAL S GROUP URNLS DIP 13364 [facility] LILO 7 PHYSICIAN STICK/TAB S GROUP LET RGNT NON-AUT[place] W/[place] [address] [facility] LIPASE 7 MEM HOSP MEM HOSP INC INC COMPREHEN 04814 [facility]EEVES SIVE 7 MEM HOSP [facility] [place] [address] [facility] REEVES AMYLASE 7 MEM HOSP MEM HOSP INC INC URINE 83160 [facility]EEVES 7 MEM HOSP [facility]OS[facility] TEST INC INC VISUAL COLOR CMPRSN METHS FINAL G9638 [facility] GAMEZPORFIRIO REPORTS 7 MEDICAL W/O DOC IMAGING 1/MORE ASS DOSE REDUCTION TECH BLOOD 22205 [facility] COUNT 7 MEM HOSP MEM HOSP COMPLETE INC INC AUTO&[place] [address] [facility] ABDOMEN & 7 MEM HOSP MEM HOSP PELVIS INC INC W/CONTRAS T MATERIAL FINAL G9551 [facility] PORFIRIO REPR ABD 7 MEDICAL IMAG STS IMAGING W/O ASS INCIDNT FND LES NTD: URNLS DIP 64711 [facility] REEVES 7 MEM HOSP MEM HOSP STICK/TAB INC INC LET REAGENT AUTO MICROSCOP Y MRI 82977 [facility] ABDOMEN 7 HEALTHCAR HEALTHCAR W/O & E E W/CONTRAS [facility] T MATERIAL INJECTION J1610 [facility] [place] 7 HEALTHCAR HEALTHCAR E E HYDROCHLO [facility] RIDE PER 1 MG INJECTION A9585 [facility] 7 HEALTHCAR HEALTHCAR GADOBUTRO E E L 0.1 ML HOSPITALS HOSPITALS MRI 16510 [facility] PELVIS 7 HEALTHCAR HEALTHCAR W/O & E E W/CONTRAS HOSPITALS HOSPITALS T MATERIAL 25 97910 [facility] HYDROXY 7 HEALTHCAR HEALTHCAR INCLUDES E E FRACTIONS HOSPITALS HOSPITALS IF PERFORMED CYANOCOBA 11150 [facility] DIAMOND 7 HEALTHCAR HEALTHCAR VITAMIN E E B-[address] [place] [address] [facility] FERRITIN 7 HEALTHCAR HEALTHCAR E E HOSPITALS HOSPITALS COMPREHEN 98926 [facility] SIVE 7 HEALTHCAR HEALTHCAR METABOLIC E E PANEL HOSPITALS HOSPITALS COLLECTIO 21278 [facility] N VENOUS 7 HEALTHCAR HEALTHCAR BLOOD E E VENIPUNCT HOSPITALS HOSPITALS URE C-REACTIV 81406 [facility] E PROTEIN 7 HEALTHCAR HEALTHCAR E E HOSPITALS HOSPITALS IRON 91082 [facility] BINDING 7 HEALTHCAR HEALTHCAR CAPACITY E E HOSPITALS HOSPITALS BLOOD 60200 [facility] COUNT 7 HEALTHCAR HEALTHCAR COMPLETE E E AUTOMATED HOSPITALS HOSPITALS BLOOD 58821 [facility] COUNT 6 Y Y COMPLETE [facility] AUTOMATED C-REACTIV 36178 [facility] E PROTEIN 6 Y Y HOSPITAL HOSPITAL COLLECTIO 05509 [facility]ERSIT UNIVERSIT N VENOUS 6 Y Y BLOOD [facility] VENIPUNCT URE COMPREHEN 75745 [facility] Y [facility] PANEL ECG 66217 LALA MURRAY ROUTINE 6 [facility] W/LEAST P 12 LDS I&R ONLY COLLECTIO 07304 UNIVERSIT UNIVERSIT N VENOUS 6 Y Y BLOOD [facility] VENIPUNCT URE C-REACTIV 70618 [facility] UNIVERSIT E PROTEIN 6 Y Y HOSPITAL HOSPITAL BLOOD 25566 [facility]ERSIT UNIVERSIT COUNT 6 Y Y COMPLETE [facility] AUTOMATED COMPREHEN 89346 UN[facility]ERS [facility] [place] [address] UNIVERSIT UNIVERSIT LIPASE 6 [place] [address] LALA REEVES LIPASE 6 [facility] INC INC THER 01121 LALA REEVES PROPH/DX 6 [facility] NJX IV INC INC PUSH SINGLE/1S T SBST/DRUG COMPREHEN 80302 LALA LALA SIVE 6 [facility] [place] [address] LALA LALA AMYLASE 6 [facility] INC INC URINE 30008 LALA REEVES 6 [facility] TEST [place] [address] LALA LALA ABDOMEN & 6 [facility] PELVIS INC INC W/O CONTRAST MATERIAL BLOOD 90458 LALA LALA COUNT 6 [facility] COMPLETE INC INC AUTO&AUTO DIFRNTL WBC THERAPEUT 98561 LALA REESE IC 6 [facility] AAR INJECTION INC IV PUSH EACH NEW DRUG URNLS DIP 29622 LALA LALA 6 [facility] STICK/TAB INC INC LET REAGENT AUTO MICROSCOP Y UNCLASSIF J3490 LALA REEVES IED DRUGS 6 [facility] [place] [address] LALA REEVES STREPTOCO 6 [facility] CCUS INC INC GROUP A CUL BACT 03366 LALA REEVES XCPT 6 [facility] URINE INC INC BLOOD/STO OL AEROBIC ISOL IAADI 17236 LALA REEVES INFLUENZA 6 [facility] B VIRUS INC INC IAADI 44534 LALA REEVES INFFLUENZ 6 [facility] A VIRUS INC INC RADIOLOGI 91329 LALA REEVES C EXAM 6 [facility] CHEST 2 INC INC VIEWS FRONTAL&L ATERAL EGD 62365 [facility] TRANSORAL 6 Y Y BIOPSY [facility] SINGLE/MU LTIPLE COLONOSCO 84863 [facility] PY 6 Y Y W/BIOPSY [facility] SINGLE/MU LTIPLE INJECTION J2704 [facility] PROPOFOL 6 Y Y 10 [facility] INJECTION J3010 [facility] FENTANYL 6 Y Y CITRATE [facility] 0.1 MG URINE 78932 [facility] 6 Y Y TEST [facility] VISUAL COLOR [place] [address] [facility] SURG 6 Y Y PATHOLOGY [facility] GROSS&ANABELL ROSCOPIC EXAM INJECTION J2405 [facility] AZLE 6 Y D RIVER [facility] BEHAVIORA ON HCL L PER 1 MG INFUSION J7030 [facility] NORMAL 6 Y Y SALINE [facility] SOLUTION 1000 CC ANES 35807 [place] LOWER 6 MEDICAL MEDICAL INTESTINE SERVICES SERVICES ENDOSCOPY DISTAL DUODENUM INJECTION J1100 [facility] 6 Y Y DEXAMETHO [facility] SONE SODIUM PHOSPHATE 1 MG COLLECTIO 45457 LALA REEVES N VENOUS 6 [facility] BLOOD INC INC VENIPUNCT URE COMPREHEN 90880 LALA REEVES SIVE 6 [facility] METABOLIC INC INC PANEL COMPREHEN 38971 [facility] SIVE 6 Y Y METABOLIC [facility] PANEL 25 48490 [facility] HYDROXY 6 Y Y INCLUDES [facility] FRACTIONS IF PERFORMED CYANOCOBA 08324 [facility] DIAMOND 6 Y Y VITAMIN [facility] B-12 NZYM 62522 [facility] ACTIV BLD 6 Y Y [facility] CELLS/TIS S NONRADACT SUBSTRATE EA COLLECTIO 53342 [facility] N VENOUS 6 Y Y BLOOD [facility] VENIPUNCT URE C-REACTIV 18481 [facility] E PROTEIN 6 Y Y [facility] IRON 41130 [facility] BINDING 6 Y Y CAPACITY [facility] BLOOD 05153 [facility] COUNT 6 Y Y COMPLE[place] [facility] [place] [address] [place] PATEL ALL ABDOMINAL 5 MEDICAL REAL IMAGING TIME ASS W/IMAGE LIMITED URINLS 93276 A C LUIS HATTIE DIP 5 TANJA HENDRICKS STICK/TAB PSC LET REAGNT NON-AUTO MICRSCPY URINE 43020 [facility] LILO 5 PHYSICIAN MARINO TEST S GROUP VISUAL COLOR CMPRSN METHS INSJ 37598 [facility] NON-BIODE 5 PHYSICIAN MARINO GRADABLE S GROUP DRUG DELIVERY IMPLANT ETONOGEST J7307 [facility] REL 5 PHYSICIAN MARINO CNTRACPT S GROUP IMPL SYS INCL IMPL & SPL VAGINAL 95322 [facility] NAGY DELIVERY 5 PHYSICIAN MARINO ONLY S GROUP W/POSTPAR NATALIE CARE REPAIR OF 7569 LALA REEVES OTHER 5 [facility] CURRENT INC INC OBSTETRIC LACERATIO N NEURAXIAL 88882 [facility] LABOR 5 ANESTH GAYE ANALG/ANE OF THE S PLND BLUE VAGINAL DELIVERY 94958 [facility] NAGY NONSTRESS 5 PHYSICIAN MARINO TEST S GROUP 81275 LAL[facility] REEVES NONSTRESS 5 [facility] TEST INC INC URNLS DIP 74234 [facility] REEVES 5 [facility] STICK/TAB INC INC LET REAGENT AUTO MICROSCOP Y 50009 ABBY DHILLON NONSTRESS 5 ALEJO HENDRICKS NESTOR TEST 08907 L[facility] REEVES NONSTRESS 5 [facility] TEST INC INC IAADIADOO 11604 COMBINED COMBINED 5 PHYSICIAN PHYSICIAN STREPTOCO S LA S LA CCUS GROUP B FTL 10716 LALA REEVES FIBRONECT 5 [facility] IN INC INC CERVICOVA G SECRETION S SEMI-AMINATA 16287 [facility] NONSTRESS 5 PHYSICIAN MARINO TEST S GROUP GLUCOSE 02032 [facility] 5 PHYSICIAN PHYSICIAN GLUCOSE S GROUP S GROUP [place] PREG 06588 [facility] UTERUS 5 Y Y W/DETAIL [facility] OFELIA 1ST GESTATION URNLS DIP 76843 [facility] REEVES 5 [facility] STICK/TAB INC INC LET REAGENT AUTO MICROSCOP Y 79196 ABBY DHILLON NONSTRESS 5 ALEJO HENDRICKS NESTOR TEST GONADOTRO 11725 LALA REEVES PIN 4 [facility] CHORIONIC INC INC QUANTITAT COLLETTE COMPREHEN 61153 LAL[facility] REEVES SIVE 4 [facility] METABOLIC INC INC PANEL URNLS DIP 28174 [facility]EEVES 4 [facility] STICK/TAB INC [place] [address] LALA REEVES INFUSION 4 [facility] THERAPY/P INC INC ROPHYLAXI S /DX 1ST TO 1 HR THERAPEUT 42449 L[facility] REEVES IC 4 [facility] INJECTION INC INC IV PUSH EACH NEW DRUG BLOOD 25624 L[facility] REEVES COUNT 4 [facility] COMPLETE INC INC AUTO&AUTO DIFRNTL WBC BLOOD 01348 L[facility] REEVES COUNT 4 [facility] COMPLETE INC INC AUTO&AUTO DIFRNTL WBC PRESSURIZ 84371 LALA REEVES ED/NONPRE 4 [facility] SSURIZED [place] [address] LALA REEVES STREPTOCO 4 [facility] CCUS INC INC GROUP A IAADI 03692 LALA REEVES INFLUENZA 4 [facility] B VIRUS INC INC IAADI 21304 LALA REEVES INFFLUENZ 4 [facility] A VIRUS INC INC CUL BACT 19578 LALA REEVES XCPT 4 [facility] URINE INC INC BLOOD/STO OL AEROBIC ISOL 45761 LALA REEVES NONSTRESS 4 [facility] TEST INC INC FTL 31459 LALA REEVES FIBRONECT 4 [facility] IN INC INC CERVICOVA G SECRETION S SEMI-AMINATA URNLS DIP 17879 LALA REEVES 4 [facility] STICK/TAB INC INC LET REAGENT AUTO MICROSCOP Y 85297 [facility] NAGY NONSTRESS 4 MARINO MARINO TEST US PREG 51149 ABBY DHILLON UTERUS 4 ALEJO BAEZ AFTER 1[place] [address] LALA REEVES ESTRIOL 4 [facility] INC INC GONADOTRO 02987 LALA REEVES PIN 4 [facility] CHORIONIC INC INC QUANTITAT COLLETTE ALPHA-FET 16712 LALA REEVES OPROTEIN 4 [facility] SERUM INC INC INCISION 92509 LALA REEVES & 4 [facility] DRAINAGE INC INC ABSCESS SIMPLE/SI NGLE INCISION 24283 [facility] SH[facility] SHA & 4 MAE DRAINAGE EMERGENCY ABSCESS PHYS COMPLICAT ED/MULTIP LE CUL BACT 55394 LALA REEVES AEROBIC 4 [facility] ADDL INC INC METHS DEFINITIV E EA ISOL CUL BACT 96593 LALA REEVES XCPT 4 [facility] URINE INC INC BLOOD/STO OL AEROBIC ISOL SUSCEPTIB 56436 LALA REEVES LTY STDY 4 [facility] ANTIMICRB INC INC IAL MICRO/AGA R DILUTJ US PREG 14373 [facility] UTERUS 4 NESTOR NESTOR REAL TIME W/IMAGE DCMTN TRANSVAG IADNA 43607 [facility] NEISSERIA 4 NESTOR NESTOR GONORRHOE AE DIRECT PROBE TQ IAADIADOO 27148 [facility] HARPEL 4 NESTOR NESTOR TRICHOMON VAGINALIS IADNA 20357 [facility] HERPES 4 NESTOR NESTOR SIMPLX VIRUS DIRECT PROBE TQ URINE 04675 [facility]L 4 NESTOR NESTOR TEST VISUAL COLOR CMPRSN METHS URINLS 05215 [facility] DIP 4 NESTOR NESTOR STICK/TAB LET REAGNT NON-AUTO MICRSCPY CULTURE 96005 [facility] CHLAMYDIA [address] [place] [address] PORFIRIO PORFIRIO ABDOMEN & 4 KARLOS KARLOS PELVIS W/O CONTRAST MATERIAL ANES 91081 [place] NERVE 2 ANESTHESI ANESTHESI MUSCLE A GROUP A GROUP TDN PSC PSC FASCIA&BU RSA FOREARM WRIST NEUROPLAS 03521 [facility] TY 2 N N &/TRANSPO COMMUNTIY COMMUNTIY S MEDIAN HOSPITA HOSPITA NRV CARPAL TUNNE BASIC 80010 [facility] METABOLIC [address] [facility] CALCIUM HOSPITA HOSPITA TOTAL BLOOD 19738 [facility] COUNT [address] [facility] AUTO&AUTO HOSPITA HOSPITA DIFRNTL WBC GONADOTRO 64909 [facility] PIN [address] [facility] HOSPITA HOSPITA QUALITATI VE COLLECTIO 18398 [facility] N VENOUS [address] [facility] VENIPUNCT HOSPITA HOSPITA URE NEEDLE 95143 [facility] EMG EA 2 [place] EXTREMTY ORTHOPAED W/PARASPI [facility] NL AREA COMPLETE NRV CNDJ 77387 [facility] AMPLT&LAT 2 [place] ENCY EA ORTHOPAED NRV MOTOR [facility] W/F-WAVE STD NRV CNDJ 88432 [facility] AMPLITUDE 2 [place] & ORTHOPAED LATENCY [facility] EACH NERVE SENSORY RADEX 07824 [place] [facility] SH[facility]ER 1 MEDICAL MEDICAL COMPLETE IMAGING IMAGING MINIMUM 2 ASS ASS VIEWS RADEX 35835 [place] SHOULDER 1 MEDICAL KARLOS COMPLETE IMAGING MINIMUM 2 ASS VIEWS DOPPLER 53379 [facility] VELOCIMET 1 MEDICAL [place]AR[place] [address] LALA REEVES TRANSVAGI 1 [facility] NAL INC INC URNLS DIP 95828 LALA REEVES 1 [facility] STICK/TAB INC INC LET REAGENT AUTO MICROSCOP Y BLOOD 16396 LALA REEVES COUNT 1 [facility] COMPLETE INC INC AUTO&[place] [address] LALA [facility]EEVES AMYLASE 1 [facility] INC INC COMPREHEN 86210 LALA REEVES SIVE 1 [facility] [place] [address] LALA REEVES LIPASE 1 [facility] INC INC URINE 30423 L[facility]A REEVES 1 [facility] TEST INC INC VISUAL COLOR CMPRSN METHS GONADOTRO 77842 A C AGRAWAL A PIN 1 TANJA HENDRICKS CHORIONIC PSC QUANTITAT COLLETTE WEDGE 58622 LUIS STODDARD HATTIE EXCISION 1 SKIN NAIL FOLD CUL 43363 LALA REEVES PRSMPTV 1 [facility] PTHGNC INC INC ORGANISMS SCR DNS CHART SPECIAL 65853 CHIPPS PICKLESIM STAIN 1 ANAIS & ER JACINTO GROUP 1 DUBILIER MICROORGA NISMS I&R URINE 75241 LAL[facility] REEVES 1 [facility] TEST INC [place] [address] LALA REEVES INFUSION 1 [facility] THERAPY INC INC PROPHYLAX IS/DX EA HOUR COLONOSCO 87723 TERRA PINEDA KHANG PY 1 MEDICAL W/BIOPSY SERV SINGLE/MU FOUNDATIO LTIPLE EGD 37623 [place] PINEDA KHANG TRANSORAL 1 MEDICAL BIOPSY SERV SINGLE/MU FOUNDATIO LTIPLE ANES 94727 [facility] LOWER 1 ANESTH INTESTINE OF THE [place] [address] CHIPPS PICKLESIM SURG 1 ANAIS & ER [facility] PATHOLOGY DUBILIER GROSS&ANABELL ROSCOPIC EXAM ESOPHAGOG 4516 LALA REEVES ASTRODUOD 1 [facility] ENOSCOPY INC INC WITH CLOSED BIOPSY CLOSED 4525 LALA REEVES [ENDOSCOP 1 [facility] IC] INC INC BIOPSY OF LARGE INTESTINE 3D 55078 [place] P[facility]IR[facility] RENDERING 1 MEDICAL KARLOS W/INTERP IMAGING & ASS POSTPROCE SS SUPERVISI ON MRI 76020 [place] [facility] SPINAL 1 MEDICAL KAR[facility]OS CANAL IMAGING CERVICAL ASS W/O CONTRAST MATRL WRIST L3908 ZHEN L.P. ZHEN L.P. HAND 1 ORTHOSIS EXT CONTROL COCK-UP PREFAB GASTRIC 89507 [place] PORFIRIO EMPTYING 1 MEDICAL KARLOS IMAGING IMAGING STUDY ASS C-REACTIV 18439 LALA REEVES E PROTEIN 1 [facility] INC INC BLOOD 97421 LALA REEVES COUNT 1 [facility] COMPLETE INC INC AUTO&AUTO DIFRNTL WBC CUL BACT 57006 LALA REEVES STOOL 1 [facility] AEROBIC INC INC ISOL SALMONELL A&[place] [address] LALA REEVES CLOSTRIDI 1 [facility] [place] [address] LALA REEVES STREPTOCO 1 [facility] CCUS [place] A IV D9242 ALICIA DMD ALICIA DMD CONSCIOUS 1 [facility] SEDATION/ ANALG - EA ADD 15 [place] [address] LALA LALA INFUSION 1 [facility] THERAPY/P INC INC ROPHYLAXI S /DX 1ST [place] [address] LALA REEVES INFUSION 1 [facility] THERAPY INC INC PROPHYLAX IS/DX EA HOUR URINE 90075 LALA REEVES 1 [facility] TEST INC INC [place] [address] LALA [facility]EEVES AMYLASE 1 [facility] [place] [address] LALA REEVES LIPASE 1 [facility] INC INC COMPREHEN 59800 LALA REEVES SIVE 1 [facility] [address] [facility] NICHOLSONPORFIRIO ABDOMEN & 1 MEDICAL KARLOS PELVIS IMAGING W/O ASS CONTRAST MATERIAL URNLS DIP 92745 LALA REEVES 1 [facility] STICK/TAB INC INC LET REAGENT AUTO MICROSCOP Y BLOOD 50435 LALA REEVES COUNT 1 [facility] COMPLETE INC INC AUTO&AUTO DIFRNTL WBC 3D 77947 [place] RENDERING 1 MEDICAL KARLOS IMAGING W/INTERP& ASS POSTPROC DIFF WORK STATION IV D9242 ALICIA DMD ALICIA DMD CONSCIOUS 1 [facility] SEDATION/ ANALG - EA ADD 15 MINUTES URNLS DIP 97006 LALA REEVES 1 [facility] STICK/TAB INC INC LET REAGENT AUTO MICROSCOP Y URINE 09025 LALA REEVES 1 [facility] TEST INC INC VISUAL COLOR CMPRSN METHS RADEX 59305 [facility] PORFIRIO SPINE 1 MEDICAL KARLOS THORACIC IMAGING 2 VIEWS ASS RADIOLOGI 44104 [facility] NICHOLSONPORFIRIO C EXAM 1 MEDICAL KARLOS CHEST 2 IMAGING VIEWS ASS FRONTAL&L ATERAL RADEX 39779 LALA REEVES SPINE 1 [facility] THORACIC INC INC 3 [place] [address] LALA REEVES AMYLASE 0 [facility] [place] [address] LALA REEVES LIPASE 0 [facility] INC INC COMPREHEN 75427 LALA REEVES SIVE 0 [facility] METABOLIC INC INC PANEL URINE 02169 L[facility]A REEVES 0 [facility] TEST INC INC VISUAL COLOR CMPRSN METHS CULTURE 85067 LALA REEVES BACTERIAL 0 [facility] INC INC QUANTTATI VE COLONY COUNT URINE CULTURE 92340 LALA REEVES BCT 0 [facility] ISOL&PRSM INC INC PTV ID ISOLATE EA URINE URNLS DIP 52518 [facility]EEVES 0 [facility] STICK/TAB INC [place] [address] LALA REEVES INFUSION 0 [facility] THERAPY/P INC INC ROPHYLAXI S /DX 1ST TO 1 HR BLOOD 55015 L[facility] REEVES COUNT 0 [facility] COMPLETE INC INC AUTO&AUTO DIFRNTL WBC SUSCEPTIB 10188 LALA REEVES LTY STDY 0 [facility] ANTIMICRB INC INC IAL MICRO/AGA R DILUTJ VAGINAL 97415 TERRA JACOB DELIVERY 0 MEDICAL MATT ONLY SERV W/POSTPAR FOUNDATIO NATALIE CARE NEURAXIAL 03475 [place] FRAGNETO, LABOR 0 MEDICAL SARBJIT Y ANALG/ANE SERV S PLND FOUNDATIO VAGINAL DELIVERY IADNA 35257 [facility] STREPTOCO 0 Y Y CCUS [facility] GROUP B AMPLIFIED PROBE TQ BLOOD 90561 [facility] COUNT [facility] N GLUCOSE 49795 [facility] QUANTITAT 0 Y Y COLLETTE [facility] XCPT REAGENT STRIP COLLECTIO 37875 [facility] N VENOUS 0 Y Y BLOOD [facility] VENIPUNCT URE BLOOD 55236 [facility] COUNT 0 [facility] T GROUND A0425 JOSE ALFREDO VELIZ MILEAGE 0 AMBULANCE AMBULANCE PER SERVICE SERVICE STATUTE MILE 24747 [facility] MONITORIN 0 Y Y G [facility] PHYS WRITTEN REPORT 48071 TER[facility] ISLAS, NONSTRESS 0 MEDICAL ANGELIC F TEST SERV FOUNDATIO AMB A0427 JOSE ALFREDO VELIZ SERVICE 0 AMBULANCE AMBULANCE ALS SERVICE SERVICE EMERGENCY TRANSPORT LEVEL 1 URNLS DIP 76990 [facility] 0 Y Y STICK/TAB HOSPITAL HOSPITAL [place] RG[place] [address] [facility] INFUSION 0 Y Y HYDRATION [facility] INITIAL 31 MIN-[place] [address] [facility] RETROPERI 0 Y Y TONEAL [facility] REAL TIME W/IMAGE LIMITED URNLS DIP 24431 [facility] 0 Y Y STICK/TAB [facility] LET REAGENT AUTO MICROSCOP Y BLOOD 69666 [facility] COUNT 0 Y Y COMPLETE [facility] AUTO&AUTO DIFRNTL WBC CULTURE 45998 [facility] BACTERIAL 0 Y Y [facility] QUANTTATI VE COLONY COUNT URINE 76573 [place] DEBORAH, NONSTRESS 0 MEDICAL RICARDO C TEST SERV FOUNDATIO 19138 [facility] MONITORIN 0 Y Y G LABOR [facility] PHYS WRITTEN REPORT 34180 [facility] MONITORIN 0 Y Y G LABOR [facility] PHYS WRITTEN REPORT 37689 [place] MID[facility]E-PE NONSTRESS 0 MEDICAL NN, [place] [address] [facility] BLOOD/URI 0 Y Y C ACID [facility] URNLS DIP 39329 [facility] 0 Y Y STICK/TAB [facility] LET RGNT AUTO W/O MICROSCOP Y COMPREHEN 22277 [facility] SIVE 0 Y Y METABOLIC [facility] [place] [address] [facility] LIPASE 0 Y Y [facility] BLOOD 07314 [facility] COUNT 0 Y Y COMPLETE [facility] AUTOMATED LACTATE 11242 [facility] DEHYDROGE 0 Y Y NASE [facility] INJECTION J2550 [facility] 0 [facility] 50 MG INJECTION J2765 [facility] AMIDE HCL UP TO 10 MG BLOOD 23278 [facility] COUNT 0 Y Y HEMATOCRI [facility] T BLOOD 62286 [facility] COUNT 0 Y Y HEMOGLOBI [facility] N COLLECTIO 86668 [facility] N VENOUS 0 Y Y BLOOD [facility] VENIPUNCT URE GLUCOSE 18027 [facility] POST 0 Y Y GLUCOSE [facility] DOSE IADNA 30508 [facility] CHLAMYDIA 0 Y Y HOSPITAL [facility] [place] [address] [place] MEYERS, NONSTRESS 0 MEDICAL ADRIÁN M TEST SERV FOUNDATIO 76465 [facility] MONITORIN 0 Y Y G LABOR [facility] PHYS WRITTEN REPORT URNLS DIP 00205 [facility] 0 Y Y STICK/TAB [facility] LET REAGENT AUTO MICROSCOP Y FTL 81437 [facility] FIBRONECT 0 Y Y IN [facility] CERVICOVA [place] [address] [facility] 0 Y Y UTERUS [facility] LIMITED 1/> FETUSES IADNA 73887 [facility] NEISSERIA 0 Y Y HOSPITAL [facility] [place]Q [address] [facility] NAGY, NONSTRESS 0 HEALTH AURE J TEST [facility] URNLS DIP 06833 [facility] 0 Y Y STICK/TAB [facility] LET REAGENT AUTO MICROSCOP Y BASIC 52063 [facility] METABOLIC 0 Y Y PANEL [facility] [place] [address] [facility] INFUSION 0 Y Y HYDRATION [facility] [place] [address] [facility] INFUSION 0 Y Y HYDRATION [facility] INITIAL 31 MIN-1 HOUR INJECTION J2405 [facility] 0 Y Y [facility] ON HCL PER 1 MG INJECTION J2550 [facility] 0 Y Y [facility] INE HCL UP TO 50 MG US PREG 37100 [place] ALMENDAREZ, UTERUS 0 MEDICAL MICHELLE F AFTER 1ST SERV TRIMEST FOUNDATIO GESTATION COLLECTIO 29307 [facility] N VENOUS 9 Y [facility] [facility] [address] [facility] ESTRIOL 9 Y Y [facility] ALPHA-FET 94507 [facility] OPROTEIN 9 Y Y SERUM [facility] GONADOTRO 89145 [facility] PIN 9 Y Y [facility] [place] [address] [facility] 9 Y Y [facility] AMB A0427 [facility] SERVICE 9 AMBULANCE AMBULANCE ALS SERVICE SERVICE EMERGENCY TRANSPORT LEVEL 1 BASIC 17050 LALA REEVES METABOLIC 9 [facility] PANEL INC INC CALCIUM TOTAL GROUND A0425 [facility] MILEAGE 9 AMBULANCE AMBULANCE [place] [address] LALA REEVES INFUSION 9 [facility] THERAPY/P INC INC ROPHYLAXI S /DX 1ST TO 1 HR BLOOD 53563 L[facility]A REEVES COUNT 9 [facility] COMPLETE INC INC AUTO&[place] [address] [facility] REEVES 9 [facility] UTERUS INC INC LIMITED 1/> FETUSES Encounters Encounter Start End Date Code Location Performer Type Date [facility] OFF[facility] 99983 [facility] 7 7 [place] AM T VISIT PHYSICIAN 25 S ASSIST MINUTES EMERGENCY 05859 LALA 7 7 [facility] DEPARTMEN INC T VISIT MODERATE SEVERITY HOSPITAL LALA Enriquez 7 7 [facility] OUT[facility] INC T EMERGENCY 80093 NATALIA SHEARER DEPT 7 7 PHYSICIAN VISIT S, [facility] HIGH [facility]VERITY& THREAT [facility] Enriquez 7 7 [facility] OUTPATIEN INC T OFFICE 95346 [facility] 7 7 PHYSICIAN T VISIT S GROUP 15 MINUTES EMERGENCY 64547 [facility] 7 7 [facility] DEPARTMEN INC T VISIT HIGH/URGE NT SEVERITY EMERGENCY 27502 NATALIA MAHAJAN DEPT 7 7 PHYSICIAN U VISIT S, [facility] HIGH [facility]VERITY& THREAT [facility] - 7 7 [facility] 7 [facility] 59406 [facility] 7 7 [place] AM T VISIT PHYSICIAN 25 S [facility] [place] - 7 7 [facility] UNIVERS[facility] - 6 6 Y [facility] T EMERGENCY 99966 NATALIA SHEARER DEPT 6 6 PHYSICIAN ASHLEY VISIT [facility] HIGH SEVERITY& THREAT [facility] EMERGENCY 00974 [facility] 6 6 [facility] T VISIT LIMITED/[facility] LALA - 6 6 [facility] EMERGENCY 31955 NATALIA MAHAJAN 6 6 PHYSICIAN Kwasi QUINONES [facility], [facility] T VISIT MODERATE SEVERITY HOSPITAL UNIVERSIT - 6 6 Y [facility] T EMERGENCY 05986 NATALIA PRESTON DEPT 6 6 PHYSICIAN ANABELL VISIT , [facility] HIGH SEVERITY& THREAT [facility] - 6 6 [facility] EMERGENCY 29135 [facility] 6 6 [facility] T VISIT HIGH/URGE NT SEVERITY EMERGENCY 73434 [facility] 6 6 [facility] T VISIT LOW/MODER SEVERITY EMERGENCY 48396 NATALIA WATKINS, 6 6 PHYSICIAN JR CANALES [facility], [facility] T VISIT HIGH/URGE NT SEVERITY HOSPITAL [facility] - 6 6 [facility] H[facility] UNIVERSIT [facility] 6 6 Y [facility] T OFFICE 84516 [facility] 6 6 PHYSICIAN T NEW 20 S GROUP MINUTES HOSPITAL [facility] - 6 6 [facility] OUTPATI[facility] INC T HOSPITAL UNIVERSIT - 6 6 [facility] T OFFICE 25710 [facility] ACACIA WIN OUTPATIEN 5 5 PHYSICIAN BOB T NEW 30 S GROUP MINUTES HOSPITAL [facility] - 5 5 [facility] INC T EMERGENCY 45027 NATALIA PENA 5 5 PHYSICIAN DAYNE DEPARTIVON S, [facility] T VISIT MODERATE SEVERITY EMERGENCY 55260 [facility] 5 5 [facility] T VISIT LIMITED/M [facility] L[facility]A - 5 5 [facility] T OFFICE 73551 A Sonali [facility] OUTPATIEN 5 5 TANJA SMITH T VISIT PSC 25 MINUTES OFFICE 17852 A Sonali [facility] OUTPATIEN 5 5 TANJA HENDRICKS T VISIT PSC 15 MINUTES OFFICE 11649 A Sonali [facility] 5 5 TANJA SMITH T VISIT PSC 15 MINUTES HOSPITAL [facility] - 5 5 [facility] INPATIENT INC OFFICE 52845 [facility] OUTPATIEN 5 5 PHYSICIAN MARINO T VISIT S GROUP 15 MINUTES HOSPITAL [facility] - 5 5 [facility] INC T OFFICE 79353 [facility] OUTPATIEN 5 5 PHYSICIAN MARINO T VISIT S GROUP 15 MINUTES OFFICE 90788 [facility] OUTPATIEN 5 5 PHYSICIAN MARINO T VISIT S GROUP 15 MINUTES HOSPITAL [facility] - 5 5 [facility] T OFFICE 22560 [facility] OUTPATIEN 5 5 PHYSICIAN MARINO T VISIT S GROUP 15 MINUTES OFFICE [id number] [facility] OUTPATIEN 5 5 PHYSICIAN MARINO T VISIT S GROUP 15 MINUTES HOSPITAL [facility] - 5 5 [facility] T OFFICE 42847 [facility] OUT[facility] 5 5 PHYSICIAN MARINO T VISIT 5 S GROUP MINUTES OFFICE 14954 [facility] OUTPATI[facility] 5 5 PHYSICIAN MARINO T VISIT S GROUP 15 MINUTES HOSPITAL UNIVERSIT - 5 5 [facility] 5 [facility] T HOSPITAL LALA - 4 4 [facility] T EMERGENCY 61195 [facility] 4 4 [facility] T VISIT HIGH/URGE NT SEVERITY EMERGENCY 98219 [facility] TORRES 4 4 [facility] T VISIT P MODERATE SEVERITY [facility]OSP[facility] - 4 4 [facility] 46182 [facility] RESENDEZ 4 4 [facility] T VISIT P MODERATE SEVERITY EMERGENCY 06457 [facility] 4 4 [facility] T VISIT LIMITED/M INOR PROB OFFICE 25021 [facility] LAMAEN 4 4 PHYSICIAN MARINO T VISIT S GROUP 15 MINUTES [facility]OSP[facility] - 4 4 [facility] T OFFICE 33930 [facility] OUTPATIEN 4 4 PHYSICIAN MARINO T VISIT S GROUP 15 MINUTES OFFICE 43291 ABBY HEARN 4 4 ALEJO BAEZ T VISIT 15 MINUTES HOSPITAL [facility] - 4 4 [facility] L[facility] - 4 4 [facility] T EMERGENCY 84224 LALA 4 4 [facility] T VISIT HIGH/URGE NT SEVERITY EMERGENCY 06273 [facility] 4 4 MAE DEPARTMEN EMERGENCY T VISIT PHYS MODERATE SEVERITY OFFICE 89004 ABBY R HARPEL OUTPATIEN 4 4 ALEJO HENDRICKS NESTOR T VISIT 15 MINUTES OFFICE 63324 [facility] HARPEL OUTPATIEN 4 4 NESTOR NESTOR T VISIT 15 MINUTES OFFICE 77236 HAR[facility] HARPEL OUTPATIEN 4 4 NESTOR NESTOR T VISIT 15 MINUTES INITIAL 51183 HARPEL HARPEL PREVENTIV 4 4 NESTOR NESTOR E MEDICINE NEW PT AGE 18-39YRS EMERGENCY 41152 KARY PRESTON DEPT 4 4 ANABELL ANABELL VISIT HIGH SEVERITY& THREAT FUNCJ OFFICE 50683 SANDOVAL CHAUDHRYPATIEN 4 4 ARLENE ARLENE T VISIT 15 MINUTES OFFICE 23752 LUIS HATTIE LUIS HATTIE OUTPATIEN 4 4 T VISIT 15 MINUTES OFFICE 57961 FIELD AMB FIELD AMB OUTPATIEN 4 4 T VISIT 15 MINUTES OFFICE 70548 [place] OUTPATIEN 2 2 MEDICAL T VISIT SERV 15 FOUNDATIO MINUTES OFFICE 55233 [place] OUTPATIEN 2 2 MEDICAL T VISIT SERV 15 FOUNDATIO MINUTES HOSP[facility] [place] [address] 2 N OUTPATIEN COMMUNTIY T [facility] [place] [address] 2 N OUTPATIEN COMMUNITY T HOSPITA OFFICE 97817 [facility] OUTPAT[facility] 2 2 [place] T VISIT [facility]THOPAED [facility] MINUTES OFFICE 26597 SANDOVAL NICK OUTPATIEN 2 2 ARLENE ARLENE T NEW 30 MINUTES HOSPITAL [facility] - 2 2 [facility] OUT[facility]IEN INC T EMERGENCY 40975 [facility] 2 2 [facility] DEPARTMEN INC T VISIT LOW/MODER SEVERITY EMERGENCY 70035 REMBERTO YOLANDA OSCAR 2 2 EMERGENCY DEPARTMEN SERVICES T VISIT MODERATE SEVERITY HOSPITAL JAMALW - 1 1 N OUTPATIEN COMMUNITY T HOSPITA EMERGENCY 82689 REMBERTO REEVES 1 1 EMERGENCY [facility] DEPARTMEN SERVICES T VISIT MODERATE SEVERITY EMERGENCY 64099 [facility] 1 1 N DEPARTMEN COMMUNITY T VISIT HOSPITA LOW/MODER SEVERITY EMERGENCY 84531 REMBERTO SR 1 1 EMERGENCY EMERGENCY DEPARTMEN SERVICES SERVICES T VISIT HIGH/URGE NT SEVERITY EMERGENCY 98681 [facility] 1 1 [facility] LOW/MODER SEVERITY [facility] - 1 1 [facility]EN [facility] T OFFICE 00210 A Sonali Stewart OUTPATIEN 1 1 TANJA HENDRICKS T VISIT PSC 15 MINUTES HOSPITAL [facility] - 1 1 [facility] T OFFICE 85867 TERRA QUIÑONEZ OUTPATIEN 1 1 MEDICAL T VISIT SERV 25 FOUNDATIO MINUTES PERIODIC 21644 TERRA BRICEÑOIV 1 1 MEDICAL MATT E MED EST SERV PATIENT FOUNDATIO 18-39 YRS HOSPITAL [facility] - 1 1 [facility] OUTPATIEN INC T EMERGENCY 04040 REMBERTO PRESTON 1 1 EMERGENCY [facility] DEPARTMEN SERVICES T VISIT HIGH/URGE NT SEVERITY EMERGENCY 90554 [facility] 1 1 [facility] T VISIT MODERATE SEVERITY [facility] - 1 1 [facility] INC T OFFICE 06114 Pat Stewart OUTPATIEN 1 1 TANJA HENDRICKS T VISIT PSC 15 MINUTES OFFICE 96725 TERRA QUIÑONEZ OUTPATIFORD 1 1 MEDICAL T VISIT SERV 25 FOUNDATIO MINUTES OFFICE 36045 LUIS KUHN OUTPATIEN 1 1 T VISIT 15 MINUTES HOSPITAL [facility] - 1 1 [facility] LALA - 1 1 [facility] OUTPATIEN [facility] T OFFICE 42203 A Sonali Stewart OUTPATIEN 1 1 TANJA HENDRICKS T VISIT PSC 15 MINUTES EMERGENCY 42906 REMBERTO LIPSCOMB 1 1 EMERGENCY III [facility] T VISIT MODERATE SEVERITY EMERGENCY 33660 LALA 1 1 [facility] T VISIT LOW/MODER SEVERITY HOSPITAL [facility] - 1 1 [facility] LALA - 1 1 [facility] T OFFICE 25212 A Sonali Stewart OUTPATIEN 1 1 TANJA HENDRICKS T VISIT PSC 15 MINUTES HOSPITAL [facility] - 1 1 [facility] OFFICE 97918 [place] EDWIN KHANG OUTPATIEN 1 1 MEDICAL T VISIT SERV 40 FOUNDATIO MINUTES OFFICE 26806 A Sonali Stewart OUTPATIEN 1 1 TANJA HENDRICKS T VISIT PSC 15 MINUTES EMERGENCY 53909 REMBERTO OSCAR 1 1 EMERGENCY DEPARTMEN SERVICES T VISIT MODERATE SEVERITY EMERGENCY 07682 LALA 1 1 [facility] T VISIT LOW/MODER SEVERITY HOSPITAL [facility] - 1 1 [facility] OFFICE 92345 A Sonali Stewart OUTPATIEN 1 1 TANJA HENDRICKS T VISIT PSC 15 MINUTES EMERGENCY 72418 L[facility]A 1 1 [facility] T VISIT HIGH/URGE NT SEVERITY EMERGENCY 46639 REMBERTO PRESTON DEPT 1 1 EMERGENCY ANABELL VISIT SERVICES [facility]IGH SEVERITY& [facility] OUTPATIEN [facility] T OFFICE 90868 A Sonali Stewart OUTPATIEN 1 1 TANJA HENDRICKS T VISIT PSC 15 MINUTES EMERGENCY 81010 REMBERTO OSCAR 1 1 EMERGENCY DEPARTMEN SERVICES T VISIT HIGH/URGE NT SEVERITY EMERGENCY 00723 LALA 1 1 [facility] T VISIT LOW/MODER SEVERITY HOSPITAL [facility] - 1 1 [facility] 1 1 [facility] OFFICE 36755 A Sonali Stewart OUTPATIFORD 1 1 TANJA HENDRICKS T VISIT PSC 15 MINUTES OFFICE 78590 NADIYA FALLON 0 0 MEDICAL JERAD B T [facility] 27882 Pat RACOS OUTPATIEN 0 0 TANJA Lyon T NEW 20 PSC [facility] LALA - 0 0 [facility] 27346 REMBERTO LIPSCOMB 0 0 EMERGENCY III, DEPARTMEN SERVICES ERIKA T VISIT HIGH/URGE ASSOCIATE NT S SEVERITY OFFICE 37700 NADIYA PAZ 0 0 NURSE BELLO T VISIT PRACTITIO 15 [facility] UNIVERSIT - 0 0 Y [facility] T OFFICE 06741 NADIYA FALLON 0 0 MEDICAL JERAD B T VISIT SERV [address] [facility] UNIVERSIT - 0 0 Y [facility] UNIVERSIT - 0 0 Y [facility] UNIVERSIT - 0 0 Y [facility] T OFFICE 50956 NADIYA FALLON 0 0 MEDICAL JERAD B T VISIT SERV [address] [facility] UNIVERSIT - 0 0 Y [facility] UNIVERSIT - 0 0 Y [facility] UNIVERSIT - 0 0 Y [facility] OFFICE 55201 UNIVERSIT [facility] 0 0 Y T VISIT [address] UNIVERSIT - 0 0 Y [facility] UNIVERSIT - 9 9 Y [facility] EMERGENCY 84954 L[facility] 9 9 [facility] T VISIT HIGH/URGE NT [facility] 9 9 [facility] T
--- OUTSIDE RECORDS SUMMARY | 2017-01-26 17:36 | External Medical Summary Rpt ---
Author Author JACINTO Shepard, [employer] Organization [employer] Address Unknown Phone Unavailable Results CHLAMYDIA AND GONORRHEA TESTING Observa Value Referen Units Interpr Notes Date tion ce etation Range COLLECT NA No No No No Feb 25 OR informa informa informa informa 2013 tion in tion in tion in tion in 1:30 PM source source source source data data data data ETHNICI WHITE, No No No No Feb 25 TY NON-HIS informa informa informa informa 2013 PANIC tion in tion in tion in tion in 1:30 PM source source source source data data data data KIT 3-31-14 No No No No Feb 25 EXPIRAT informa informa informa informa 2013 ION tion in tion in tion in tion in 1:30 PM DATE source source source source data data data data SYMPTOM NO No No No No Feb 25 S informa informa informa informa 2013 tion in tion in tion in tion in 1:30 PM source source source source data data data data REASON INITIAL No No No No Feb 25 FOR FAMILY informa informa informa informa 2013 REQUEST tion in tion in tion in tion in 1:30 PM PLANNIN source source source source G VISIT data data data data SPECIME FEMALE No No No No Feb 25 N ENDOCER informa informa informa informa 2013 SOURCE VICAL tion in tion in tion in tion in 1:30 PM source source source source data data data data PREGNAN NO No No No No Feb 25 T informa informa informa informa 2013 tion in tion in tion in tion in 1:30 PM source source source source data data data data CHART NA No No No No Feb 25 NUMBER informa informa informa informa 2013 tion in tion in tion in tion in 1:30 PM source source source source data data data data Chlamyd NEGATIV No No No NEGATIV Feb 25 ia E informa informa informa E 2013 trachom tion in tion in tion in RESULT= 1:30 PM atis source source source WITHIN rRNA data data data NORMAL [Presen ce] in LIMITSP Unspeci OSITIVE fied specime RESULT= n by Probe & ABNORMA target LEQUIVO RODDY amplifi RESULT= cation method INDETER MINATEU NSATISF ACTORY RESULT= INVALID Neisser NEGATIV No No No NEGATIV Feb 25 ia E informa informa informa E 2013 gonorrh tion in tion in tion in RESULT= 1:30 PM oeae source source source WITHIN rRNA data data data NORMAL [Presen ce] in LIMITSP Unspeci OSITIVE fied specime RESULT= n by Probe & ABNORMA target LEQUIVO RODDY amplifi RESULT= cation method INDETER MINATEU NSATISF ACTORY RESULT= INVALID THE APTIMA COMBO 2 ASSAY IS NOT INTENDE D FOR THE EVALUAT ION OF SUSPECT EDSEXUA L ABUSE OR FOR OTHER MEDICO- LEGAL INDICAT IONS. FOR THOSE PATIENT S FORWHOM A FALSE POSITIV E RESULT MAY HAVE ADVERSE PSYCHO- SOCIAL IMPACT, [facility] MMENDS RETESTI NG.\.br \This report contain s patient informa tion that must be protect ed in accorda nce with the Health Insuran ce Portabi lity and Account ability Act. CHLAMYDIA AND GONORRHEA TESTING Observa Value Referen Units Interpr Notes Date tion ce etation Range COLLECT NA No No No No Feb 25 OR informa informa informa informa 2013 tion in tion in tion in tion in 1:30 PM source source source source data data data data ETHNICI WHITE, No No No No Feb 25 TY NON-HIS informa informa informa informa 2013 PANIC tion in tion in tion in tion in 1:30 PM source source source source data data data data KIT 3-31-14 No No No No Feb 25 EXPIRAT informa informa informa informa 2013 ION tion in tion in tion in tion in 1:30 PM DATE source source source source data data data data SYMPTOM NO No No No No Feb 25 S informa informa informa informa 2013 tion in tion in tion in tion in 1:30 PM source source source source data data data data REASON INITIAL No No No No Feb 25 FOR FAMILY informa informa informa informa 2013 REQUEST tion in tion in tion in tion in 1:30 PM PLANNIN source source source source G VISIT data data data data SPECIME FEMALE No No No No Feb 25 N ENDOCER informa informa informa informa 2013 SOURCE VICAL tion in tion in tion in tion in 1:30 PM source source source source data data data data PREGNAN NO No No No No Feb 25 T informa informa informa informa 2013 tion in tion in tion in tion in 1:30 PM source source source source data data data data CHART NA No No No No Feb 25 NUMBER informa informa informa informa 2013 tion in tion in tion in tion in 1:30 PM source source source source data data data data Chlamyd Pending No No No No Feb 25 ia informa informa informa informa 2013 trachom tion in tion in tion in tion in 1:30 PM atis source source source source rRNA data data data data [Presen ce] in Unspeci fied specime n by Probe & target amplifi cation method Neisser Pending No No No \.br\Feb 25 ia informa informa informa is 2013 gonorrh tion in tion in tion in report 1:30 PM oeae source source source contain rRNA data data data s [Presen patient ce] in Unspeci informa fied tion specime that n by must be Probe & target protect ed in amplifi accorda cation nce method with the Health Insuran ce Portabi lity and Account ability Act.
--- OUTSIDE RECORDS SUMMARY | 2017-01-26 17:36 | External Medical Summary Rpt ---
[...] MAY HAVE ADVERSE PSYCHO- SOCIAL IMPACT, [facility] MMENDS RETESTI NG.\.br \This report contain [...]
--- OUTSIDE RECORDS SUMMARY | 2017-01-26 17:36 | External Medical Summary Rpt ---
Demographics Preferred Language Honduran Marital Status Unknown Gnosticism Affiliation Unknown Race Unknown Ethnic Group Unknown Author Author , JACINTO CASEY Address Unknown Phone Immunization Unable to retrieve immunization data due to connection failure with Immunization Registry. Please try again later.
--- OUTSIDE RECORDS SUMMARY | 2017-01-26 17:36 | External Medical Summary Rpt ---
Demographics Preferred Language Colombian Marital Status Unknown Yarsani Affiliation Unknown Race Unknown Ethnic Group Unknown Author Author , JACINTO CASEY Address Unknown Phone Immunization Unable to retrieve immunization data due to connection failure with Immunization Registry. Please try again later.
[2017-01-26 17:53] LABS: HEMOGLOBIN 13.5 g/dL (12.2-16.2); LYMPH # 1.2 K/mm3 (0.7-4.5); LYMPH % 15.7 % (10-50.0)
[2017-01-26] MEDS ORDERED: CIPRO 500MG TA500 MG PO (18:51)
[2017-01-26] MEDS ORDERED: PHENERGAN25 M3 PO (18:51)
[2017-01-26] MEDS ORDERED: PREDNISONE 10MG10 MG PO (18:51)
[2017-01-26 19:14] VITALS: BP 126/68
--- NOTE | 2017-01-27 10:48 | RADIOLOGY REPORT PS360 ---
CT ABD PELVIS W/O CONTRAST CLINICAL INDICATION: Bloating and nausea, Crohn's disease, abdominal pain with nausea ABD PAIN, HX CROHNS ORDERING PHYSICIAN: Malinda Larkin MD PATIENT AGE: 26 years COMPARISON: 11/04/2016 TECHNIQUE: Axial images obtained with sagittal and coronal reformats. PROCEDURE: Oral Contrast: None IV Contrast: None . FINDINGS: Lower thorax: No acute finding Abdomen and pelvis: The liver, spleen, adrenal glands, and pancreas have an unremarkable unenhanced CT appearance. There has been a prior cholecystectomy. No biliary dilatation. No renal calculi or hydronephrosis. No ureteral calculi. The urinary bladder is decompressed. There is mild diffuse thickening of the ascending and transverse colon with minimal stranding of the paracolic fat consistent with colitis/Crohn's colitis there is some mild thickening of the terminal ileum is well. No abscess. No evidence of appendicitis or diverticulitis. There is a 3 cm right adnexal cyst. There is mild mesenteric adenopathy with lymph nodes in the right lower quadrant measuring up to 1.6 cm. There is tiny umbilical hernia containing fat. No acute bony anomalies are evident. IMPRESSION: 1. Thickening of the ascending and transverse colon with mild stranding of the pericolic fat consistent with Crohn's colitis. Other etiologies for colitis not excluded. 2. Mild mesenteric adenopathy. 3. Minimal thickening of the terminal ileum which may be due to iliac is versus bowel contraction 4. 3 cm right ovarian cyst.
== END 2017-01-26 19:15 | disposition home or self-care (01) ==
LOC: ER 16:48
PROVIDERS: Emergency Medicine
DX: K50.10 Crohn's disease of large intestine without complications (principal); Z72.0 Tobacco use

== ENCOUNTER 2017-03-29 18:38 | Emergency (ER) | payer MEDICAID ==
[~2017-03-29] VITALS: Ht 162.6 cm; Wt 78.9 kg
[~2017-03-29 18:38] MED LIST changes: +MERCAPTOPURINE PO; +PHENERGAN25 M3 PO; +PREDNISONE 10MG10 MG PO
[2017-03-29 19:10] VITALS: BP 115/77
--- NOTE | 2017-03-29 19:10 | Urgent Treatment Center Report ---
History of Present Issue Date/Time Seen by Provider 03/29/17 1905 Visit Reason Pt arrived:Walked Presenting Problem:PT STATES BOTH EARS HAVE BEEN HURTING X2 DAYS Location if Accident: Onset of symptoms date/time:/ or onset unknown for:MEDICAL HX UNKNOWN Have you (or family members/close friends) recently traveled outside the [place]? N If Yes, where/when: Have you had exposure to infectious disease within the past month? TB? Other? Specify: State that she has not been feeling well for several days. State that her ears have been itching and feeling like they area hurting and stopped up at times Complains of nasal congestion. Advises that drainage from nose is clear State that she has had a cough but denies any fever ALLERGIES Coded Allergies: Sulfa (Sulfonamide Antibiotics) (Mild, 11/04/16) cefdinir (Mild, 11/04/16) Penicillins (11/04/16) Home Medications Active Scripts Prednisone (Prednisone 10MG) 10 MG PO BID #20 TAB Prov: 01/26/17 PROMETHAZINE HCL (Phenergan 25MG Tab (Geq)) 12.5 MG PO Q6HP PRN N/V #10 TAB Prov: 01/26/17 CALCIUM CARBONATE/VITAMIN D3 (Calcium 600 + Vit D 200 Tablet) 1 TAB PO BID #60 TAB Prov: 01/01/16 Reported Medications Dicyclomine HCl (Bentyl) 20 MG PO QID Mercaptopurine (Mercaptopurine 50MG Tablet) 50 MG PO DAILY #30 History Medical History General CAD? No Angina: No CO: No Hypertension? No Hyperlipidemia? No CHF? No DVT? No PE? No COPD? No Asthma? Yes Anemia? No GERD? Yes Gastric ulcers? No GI Bleed? No Hernia? No Thyroid Problems? No Hypothyroidism? No CVA? No Seizures? No Diabetes? No Renal Insuffiency? No UTI? Yes Stones? No BPH? No GB Disease: Yes Nephritic Syndrome? No Asplenia? No Hepatitis? No Sickle Cell Disease? No Arthritis? No Migraines? No Cataracts? No Glaucoma? No MRSA? No HIV? No TB? No Anxiety? No Depression? No Cancer? No More? Yes Additional hx: CHRONS Immunization HX DT/Tetanus 1-4 Years Ago Flu Refused Pneumonia Never Had Surgical Hx Previous Surgery?Y GALLBLADDER WISDOM TEETH MOLE ON BACK EGD/COLON MOLE REMOVED FROM BACK TUBAL LIGATION Family History Family HX Diabetes Yes CAD Yes Hypertension Yes Hyperlipidemia Yes Cancer Yes TB No Social History Smoking Hx Smoker: Current Every Day Smoker Tobacco: Yes Type Cigarettes Packs/day < 1 Pack Alcohol Alcohol: No Review of Systems All Other Systems Reviewed and Negative Constitutional denies fever ENT ear pain, nose discharge, nose congestion. denies: ear discharge. Respiratory cough Physical Exam Vital Signs Vital Signs Date Time Temp Pulse Resp B/P Pulse O2 O2 Flow FiO2 Ox Delivery Rate 03/29 1849 97.8 64 20 115/77 100 General Appearance normal appearance, WD/WN, no apparent distress Ear, Nose, Throat sinus pain/drainage, Reports drainage from nose clear, no tenderness noted Respiratory Status Yes: trachea midline, chest symmetrical, non tender chest. No: respiratory distress. 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 No Departure Departure Time of Disposition 1907 Disposition DC Home or Self Care(routine) Clinical Impression Primary Impression: Allergic rhinitis Qualifiers: Chronicity: unspecified Allergic rhinitis trigger: unspecified Allergic rhinitis seasonality: unspecified seasonality Qualified Code: J30.9 - Allergic rhinitis, unspecified Condition STABLE Referrals CONTRERAS LANDERS (Family): 2 Days-Call Office if no improvement or worsening of symptoms Patient Instructions Allergic Rhinitis, DI for Allergic Rhinitis, DI for Nasal Congestion Additional Instructions * Monitor Temp. Tylenol and/or Ibuprofen as needed. ER if fever is no less than 101 despite alternating Tylenol and Ibuprofen * Encourage fluids, water, Gatorade, powerade, pedialyte if infant/toddler/or child * Warm salt water gargles for throat irritation *Warm fluids *Sore throat lozenges *Sleep elevated Follow up with family doctor as advised in clinic today if no improvement or worsening of symptoms Discharge Counseling Counseled pt/family regarding diagnosis, home care, follow up needs at 1909
== END 2017-03-29 19:11 | disposition home or self-care (01) ==
LOC: UTC 18:38
DX: J30.9 Allergic rhinitis, unspecified (principal); K21.9 Gastro-esophageal reflux disease without esophagitis; F17.210 Nicotine dependence, cigarettes, uncomplicated; J45.909 Unspecified asthma, uncomplicated; Z88.0 Allergy status to penicillin; Z88.2 Allergy status to sulfonamides

== ENCOUNTER 2017-05-19 16:58 | Emergency (ER) | payer MEDICAID ==
[~2017-05-19] VITALS: Ht 162.6 cm; Wt 75.8 kg
--- OUTSIDE RECORDS SUMMARY | 2017-05-19 17:02 | External Medical Summary Rpt | CCD ---
Author Author , JACINTO CASEY Address Unknown Phone [email or web address] Immunization Name Date Rout CVX Reac Dose Comm Prov Is Faci e tion ent ider Refu lity Give sed n Hep 06-2 8 999 Hist H149 No H149 B, 6-20 oric ped/ 02 al adol Info rmat ion - Sour ce Unsp ecif ied Hep 12-1 8 999 Hist H149 No H149 B, 4-20 oric ped/ 01 al adol Info rmat ion - Sour ce Unsp ecif ied Hep 11-0 8 999 Hist H149 No H149 B, 5-20 oric ped/ 01 al adol Info rmat ion - Sour ce Unsp ecif ied DTaP 03-2 107 999 Hist H149 No H149 , UF 1-19 oric 96 al Info rmat ion - Sour ce Unsp ecif ied MMR 03-2 3 999 Hist H149 No H149 1-19 oric 96 al Info rmat ion - Sour ce Unsp ecif ied Shubham 03-2 2 999 Hist H149 No H149 o-OP 1-19 oric V 96 al Info rmat ion - Sour ce Unsp ecif ied
--- OUTSIDE RECORDS SUMMARY | 2017-05-19 17:02 | External Medical Summary Rpt | CCD ---
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, BILATERAL J02.9 ACUTE PHARYNGITIS , UNSPECIFIED J06.9 ACUTE UPPER RESPIRATORY INFECTION, UNSPECIFIED K50.10 CROHN'S DISEASE OF LARGE INTESTINE WITHOUT COMPLICATIO NS N83.202 UNSPECIFIED OVARIAN CYST, LEFT SIDE N93.9 ABNORMAL UTERINE AND VAGINAL BLEEDING, UNSPECIFIED R10.2 PELVIC AND PERINEAL PAIN R10.9 UNSPECIFIED ABDOMINAL PAIN R11.10 VOMITING, UNSPECIFIED R42 DIZZINESS AND GIDDINESS Results Labs Lab Lab Date Result Refere Interp Status Commen Order Detail nces retati t Range on Urinalysis dipstick W Reflex Microscopic panel in Urine (01-26-2017 17:20) Bacteri 3+ O complet a 017 ed [Presen 17:20 ce] in Urine sedimen t by Light microsc opy Mucus 4+ OCC complet [Presen 017 ed ce] in 17:20 Urine sedimen t by Light microsc opy Erythro 5-10 0 complet cytes 017 ed [Presen 17:20 ce] in Urine sedimen t by Light microsc opy Epithel 5-10 0#/hp complet ial 017 f - ed cells.s 17:20 5#/hp quamous f [Presen ce] in Urine sedimen t by Microsc opy high power field Leukocy 3-5 O complet ramon 017 wbc/hpf ed [#/volu 17:20 me] in Urine Urinalysis dipstick W Reflex Microscopic panel in Urine (01-26-2017 17:20) Appeara CLEAR CLEAR complet nce of 017 ed Urine 17:20 Bilirub NEGATIV NEG complet in 017 E ed [Presen 17:20 ce] in Urine by Test strip Erythro 2+ NEG Abnorma complet cytes 017 l ed [Presen 17:20 ce] in Urine Color YELLOW YELLOW complet of 017 ed Urine 17:20 Ketones NEGATIV NEG complet 017 E ed [Presen 17:20 ce] in Urine by Automat ed test strip Mucus NEGATIV NEG complet [Presen 017 E ed ce] in 17:20 Urine sedimen t by Light microsc opy Nitrite NEGATIV NEG complet 017 E ed [Presen 17:20 ce] in Urine by Test strip Urobili 0.2 NEG complet nogen 017 ed [Presen 17:20 ce] in Urine by Test strip CHLAMYDIA AND GONORRHEA TESTING (02-25-2013 13:30) Chlamyd [...] TY 013 NON-HIS ed 13:30 PANIC KIT 14 complet EXPIRAT 013 ed ION 13:30 DATE SYMPTOM NO complet S 013 ed 13:30 REASON INITIAL complet FOR 013 FAMILY ed REQUEST 13:30 PLANNIN G VISIT SPECIME FEMALE complet N 013 ENDOCER ed SOURCE 13:30 VICAL PREGNAN NO complet T 013 ed 13:30 CHART NA complet NUMBER 013 ed 13:30 Chlamyd Pending complet ia 013 ed trachom 13:30 atis rRNA [Presen ce] in Unspeci fied specime n by Probe & target amplifi cation method Neisser Pending complet ia 013 ed gonorrh 13:30 oeae rRNA [Presen ce] in Unspeci fied specime n by Probe & target amplifi cation method
--- OUTSIDE RECORDS SUMMARY | 2017-05-19 17:02 | External Medical Summary Rpt | CCD ---
Author Author , JACINTO CASEY Address Unknown Phone [email or web address] Purpose Continuity of Care Document - 02-25-2013 [...]
--- OUTSIDE RECORDS SUMMARY | 2017-05-19 17:02 | External Medical Summary Rpt | CCD ---
Author Author , JACINOT CASEY Address Unknown Phone [email or web address] Immunization Name Date Rout CVX Reac Dose [...]
--- OUTSIDE RECORDS SUMMARY | 2017-05-19 17:03 | External Medical Summary Rpt ---
Author Author BECKYROSSANA Shepard, [employer] Organization [employer] Address Unknown Phone Unavailable Results Comprehensive metabolic 2000 panel in Serum or Plasma Observa Value Referen Units Interpr Notes Date tion ce etation Range Albumin/G 1.1 - 1.8 No Low No Jan 26 lobulin informati informati 2016 5:40 [Mass on in on in PM ratio] in source source Serum or data data Plasma Albumin 3.4 - 5.0 gm/dL Normal No Jan 26 [Mass/vol informati 2016 5:40 ume] in on in PM Serum or source Plasma data Alkaline 46 - 116 U/L Normal No Jan 26 phosphata informati 2016 5:40 se on in PM [Enzymati source c data activity/ volume] in Serum or Plasma Bilirubin 0.2 - 1.0 mg/dL Normal No Jan 26 .total informati 2016 5:40 [Mass/vol on in PM ume] in source Serum or data Plasma Urea 7 - 18 mg/dL Low No Jan 26 nitrogen informati 2016 5:40 [Mass/vol on in PM ume] in source Serum or data Plasma Calcium 8.5 - mg/dL Normal No Jan 26 [Mass/vol 10.1 informati 2016 5:40 ume] in on in PM Serum or source Plasma data Chloride 98 - 107 mmoL/L Normal No Jan 26 [Moles/vo informati 2016 5:40 lume] in on in PM Serum or source Plasma data Carbon 21.0 - mmoL/L Normal No Jan 26 dioxide, 32.0 informati 2017 5:40 total on in PM [Moles/vo source lume] in data Serum or Plasma Creatinin 0.55 - mg/dL Normal No Jan 26 e 1.02 informati 2017 5:40 [Mass/vol on in PM ume] in source Serum or data Plasma Creatinin 50 - 200 ML/MIN Normal No Jan 26 e renal informati 2017 5:40 clearance on in PM source predicted data by Cockcroft -Gault formula Estimated 59- ML/MIN No REFERENCE Jan 26 informati RANGE: 2017 5:40 glomerula on in >60 PM r source ML/MIN/1. filtratio data 73 SQUARE n rate METERSIf (GF this patient is -A merican, then multiply theresult by 1.210. Globulin 1.3 - 3.2 gm/dL High No Jan 26 [Mass/vol informati 2016 5:40 ume] in on in PM Serum source data Glucose 74 - 106 mg/dL Normal No Jan 26 [Mass/vol informati 2016 5:40 ume] in on in PM Serum or source Plasma data Potassium 3.5 - 5.1 mmoL/L Low No Jan 26 inform2016 5:40 [Moles/vo on in PM lume] in source Serum or data Plasma Sodium 136 - 145 mmoL/L Normal No Jan 26 [Moles/vo informati 2016 5:40 lume] in on in PM Serum or source Plasma data Aspartate 15 - 37 U/L Low No Jan 26 inform2016 5:40 aminotran on in PM sferase source [Enzymati data c activity/ volume] in Serum or Plasma Alanine 12 - 78 U/L Normal No Jan 26 aminotran 2016 5:40 sferase on in PM [Enzymati source c data activity/ volume] in Serum or Plasma Protein 6.4 - 8.2 gm/dL Normal No Jan 26 [Mass/vol informati 2016 5:40 ume] in on in PM Serum or source Plasma data Lipase [Enzymatic activity/volume] in Serum or Plasma Observa Value Referen Units Interpr Notes Date tion ce etation Range Lipase 73 - 393 U/L Normal No Jan 26 [Enzymati informati 2016 5:40 c on in PM activity/ source volume] data in Serum or Plasma CBC W Auto Differential panel in Blood Observa Value Referen Units Interpr Notes Date tion ce etation Range Basophils 0 - 0.2 K/MM3 Normal No Jan 26 inform2016 5:40 [#/volume on in PM ] in source Blood by data Automated count Basophils 0.1 - 2.0 % Normal No Jan 26 /100 informati 2016 5:40 leukocyte on in PM s in source Blood by data Automated count Eosinophi 0.0 - 0.4 K/mm3 Normal No Jan 26 ls informati 2016 5:40 [#/volume on in PM ] in source Blood by data Automated count Eosinophi 0.1 - % Normal No Jan 26 ls/100 12.0 informati 2016 5:40 leukocyte on in PM s in source Blood by data Automated count Granulocy 1.8 - 7.8 K/mm3 Normal No Jan 26 ramon informati 2016 5:40 [#/volume on in PM ] in source Blood by data Automated count Granulocy 37.0 - % Normal No Jan 26 ramon/100 80.0 informati 2016 5:40 leukocyte on in PM s in source Blood by data Automated count Hematocri 37.0 - % Normal No Jan 26 t [Volume 47.0 informati 2016 5:40 on in PM Fraction] source of Blood data Hemoglobi 12.2 - g/dL Normal No Jan 26 n 16.2 informati 2016 5:40 [Mass/vol on in PM ume] in source Blood data Lymphocyt 0.7 - 4.5 K/mm3 Normal No Jan 26 es informati 2016 5:40 [#/volume on in PM ] in source Unspecifi data ed specimen by Automated count Lymphocyt 10 - 50.0 % Normal No Jan 26 es informati 2016 5:40 [#/volume on in PM ] in source Unspecifi data ed specimen by Automated count Erythrocy 27 - 31.2 pg High No Jan 26 te mean informati 2016 5:40 corpuscul on in PM ar source hemoglobi data n [Entitic mass] Erythrocy 31.8 - g/dl Normal No Jan 26 te mean 35.4 informati 2016 5:40 corpuscul on in PM ar source hemoglobi data n concentra tion [Mass/vol ume] by Automated count Erythrocy 82.2 - fl High No Jan 26 te mean 97.8 informati 2016 5:40 corpuscul on in PM ar volume source [Entitic data volume] by Automated count Monocytes 0.1 - 1.0 K/mm3 Normal No Jan 26 informati 2016 5:40 [#/volume on in PM ] in source Blood by data Automated count Monocytes 1.7 - 9.3 % Normal No Jan 26 /100 informati 2017 5:40 leukocyte on in PM s in source Blood by data Automated count Platelet 7.4 - fl Low No Jan 26 mean 10.4 informati 2016 5:40 volume on in PM [Entitic source volume] data in Blood by Automated count Platelets 142 - 424 K/mm3 Normal No Jan 26 informati 2017 5:40 [#/volume on in PM ] in source Blood data Erythrocy 4.2 - 5.4 M/mm3 Low No Jan 26 ramon informati 2016 5:40 [#/volume on in PM ] in source Amniotic data fluid Erythrocy 11.5 - % Normal No Jan 26 te 17.5 informati 2016 5:40 distribut on in PM ion width source [Entitic data volume] by Automated count Leukocyte 4.8 - K/MM3 Normal No Jan 26 s 10.8 ati 2016 5:40 [#/volume on in PM ] in source Blood data Urinalysis dipstick W Reflex Microscopic panel in Urine Observa Value Referen Units Interpr Notes Date tion ce etation Range Appeara CLEAR CLEAR No No No Jan 26 nce of informa informa informa 2016 Urine tion in tion in tion in 5:20 PM source source source data data data Bacteri 3+ O No No No Jan 26 a informa informa informa 2016 [Presen tion in tion in tion in 5:20 PM ce] in source source source Urine data data data sedimen t by Light microsc opy Bilirub NEGATIV NEG No No BILIRUB Jan 26 in E informa informa IN 2016 [Presen tion in tion in CONFIRM 5:20 PM ce] in source source ED WITH Urine data data by Test ICTOTES strip T Erythro 2+ NEG No Abnorma No Jan 26 cytes informa l informa 2016 [Presen tion in tion in 5:20 PM ce] in source source Urine data data Color YELLOW YELLOW No No No Jan 26 of informa informa informa 2016 Urine tion in tion in tion in 5:20 PM source source source data data data Glucose NEG No No No Jan 26 [Mass/vol informati informati informati 2016 5:20 ume] in on in on in on in PM Urine by source source source Test data data data strip Ketones NEGATIV NEG mg/dL No No Jan 26 E informa informa 2016 [Presen tion in tion in 5:20 PM ce] in source source Urine data data by Automat ed test strip Mucus NEGATIV NEG No No No Jan 26 [Presen E informa informa informa 2016 ce] in tion in tion in tion in 5:20 PM Urine source source source sedimen data data data t by Light microsc opy Mucus 4+ OCC No No No Jan 26 [Presen informa informa informa 2016 ce] in tion in tion in tion in 5:20 PM Urine source source source sedimen data data data t by Light microsc opy Nitrite NEGATIV NEG No No No Jan 26 E informa informa informa 2016 [Presen tion in tion in tion in 5:20 PM ce] in source source source Urine data data data by Test strip pH of 5.0 - 8.5 No Normal No Jan 26 Urine informati informati 2016 5:20 on in on in PM source source data data Protein NEG mg/dL No No Jan 26 [Mass/vol informati informati 2016 5:20 ume] in on in on in PM Urine by source source Automated data data test strip Erythro 5-10 0 rbc/hpf No No Jan 26 cytes informa informa 2016 [Presen tion in tion in 5:20 PM ce] in source source Urine data data sedimen t by Light microsc opy Specific 1.005 - No Normal No Jan 26 gravity 1.030 informati informati 2016 5:20 of Urine on in on in PM source source data data Epithel 5-10 0 - 5 #/hpf No No Jan 26 ial informa informa 2016 cells.s tion in tion in 5:20 PM quamous source source data data [Presen ce] in Urine sedimen t by Microsc opy high power field Urobili 0.2 NEG E.U./dL No No Jan 26 nogen informa informa 2016 [Presen tion in tion in 5:20 PM ce] in source source Urine data data by Test strip Leukocy [3 O wbc/hpf No No Jan 26 ramon wbc/hpf informa informa 2016 [#/volu ; 5 tion in tion in 5:20 PM me] in wbc/hpf source source Urine ] data data Urinalysis dipstick W Reflex Microscopic panel in Urine Observa Value Referen Units Interpr Notes Date tion ce etation Range Appeara CLEAR CLEAR No No No Jan 26 nce of informa informa informa 2017 Urine tion in tion in tion in 5:20 PM source source source data data data Bilirub NEGATIV NEG No No BILIRUB Jan 26 in E informa informa IN 2017 [Presen tion in tion in CONFIRM 5:20 PM ce] in source source ED WITH Urine data data by Test ICTOTES strip T Erythro 2+ NEG No Abnorma No Jan 26 cytes informa l informa 2016 [Presen tion in tion in 5:20 PM ce] in source source Urine data data Color YELLOW YELLOW No No No Jan 26 of informa informa informa 2016 Urine tion in tion in tion in 5:20 PM source source source data data data Glucose NEG No No No Jan 26 [Mass/vol informati informati informati 2016 5:20 ume] in on in on in on in PM Urine by source source source Test data data data strip Ketones NEGATIV NEG mg/dL No No Jan 26 E informa informa 2016 [Presen tion in tion in 5:20 PM ce] in source source Urine data data by Automat ed test strip Mucus NEGATIV NEG No No No Jan 26 [Presen E informa informa informa 2016 ce] in tion in tion in tion in 5:20 PM Urine source source source sedimen data data data t by Light microsc opy Nitrite NEGATIV NEG No No No Jan 26 E informa informa informa 2016 [Presen tion in tion in tion in 5:20 PM ce] in source source source Urine data data data by Test strip pH of 5.0 - 8.5 No Normal No Jan 26 Urine informati informati 2016 5:20 on in on in PM source source data data Protein NEG mg/dL No No Jan 26 [Mass/vol informati informati 2016 5:20 ume] in on in on in PM Urine by source source Automated data data test strip Specific 1.005 - No Normal No Jan 26 gravity 1.030 informati informati 2016 5:20 of Urine on in on in PM source source data data Urobili 0.2 NEG E.U./dL No No Jan 26 nogen informa informa 2016 [Presen tion in tion in 5:20 PM ce] in source source Urine data data by Test strip Choriogonadotropin.beta subunit [Units] in 24 hour Urine Observa Value Referen Units Interpr Notes Date tion ce etation Range Choriogon NEG No No No Jan 26 adotropin informati informati informati 2017 5:20 .beta on in on in on in PM subunit source source source [Units] data data data in 24 hour Urine CHLAMYDIA AND GONORRHEA TESTING Observa Value Referen [...] MAY HAVE ADVERSE PSYCHO- SOCIAL IMPACT, [facility] NG.\.br \This report contain s patient informa tion that must be protect ed in accorda nce with the Health Insuran ce Portabi lity and Account ability Act. CHLAMYDIA AND GONORRHEA TESTING Observa Value Referen Units Interpr Notes Date tion ce etation Range COLLECT NA No No No No Feb 25 OR informa informa informa informa 2012 tion in tion in tion in tion [...]
--- OUTSIDE RECORDS SUMMARY | 2017-05-19 17:03 | External Medical Summary Rpt ---
[...] MAY HAVE ADVERSE PSYCHO- SOCIAL IMPACT, [facility] NG.\.br \This report contain s [...]
[2017-05-19] MEDS ORDERED: CLARITIN 10MG T10 MG PO (17:43)
[2017-05-19] MEDS ORDERED: MEDROL 4MG. DOSE4 MG PO (17:43)
[2017-05-19] MEDS ORDERED: ZITHROMAX Z PA250 MG PO (17:43)
--- NOTE | 2017-05-19 17:44 | Urgent Treatment Center Report ---
History of Present Issue Date/Time Seen by Provider 05/19/17 6735 Visit Reason Pt arrived:Walked Presenting Problem:PT C/O OF HEARING LOSS IN BOTH EARS Location if Accident: Onset of symptoms date/time:/ or onset unknown for:MEDICAL HX UNKNOWN Have you (or family members/close friends) recently traveled outside the [place]? N If Yes, where/when: Have you had exposure to infectious disease within the past month? TB? Other? Specify: Patient state that she has been having bilateral ear pain and difficulty hearing State that she is not sure if ears are swollen or what is going on State that it feels like there is pressure in both ears and not sure if there may be fluid on her ear ALLERGIES Coded Allergies: Sulfa (Sulfonamide Antibiotics) (Mild, 11/04/16) cefdinir (Mild, 11/04/16) Penicillins (11/04/16) Home Medications Active Scripts Prednisone (Prednisone 10MG) 10 MG PO BID #20 TAB Prov: 01/26/17 PROMETHAZINE HCL (Phenergan 25MG Tab (Geq)) 12.5 MG PO Q6HP PRN N/V #10 TAB Prov: 01/26/17 CALCIUM CARBONATE/VITAMIN D3 (Calcium 600 + Vit D 200 Tablet) 1 TAB PO BID #60 TAB Prov: 01/01/16 Reported Medications Dicyclomine HCl (Bentyl) 20 MG PO QID Mercaptopurine (Mercaptopurine 50MG Tablet) 50 MG PO DAILY #30 History Medical History General CAD? No Angina: No MD: No Hypertension? No Hyperlipidemia? No CHF? No DVT? No PE? No COPD? No Asthma? Yes Anemia? No GERD? Yes Gastric ulcers? No GI Bleed? No Hernia? No Thyroid Problems? No Hypothyroidism? No CVA? No Seizures? No Diabetes? No Renal Insuffiency? No UTI? Yes Stones? No BPH? No GB Disease: Yes Nephritic Syndrome? No Asplenia? No Hepatitis? No Sickle Cell Disease? No Arthritis? No Migraines? No Cataracts? No Glaucoma? No MRSA? No HIV? No TB? No Anxiety? No Depression? No Cancer? No More? Yes Additional hx: CHRONS Immunization HX DT/Tetanus 1-4 Years Ago Flu Refused Pneumonia Never Had Surgical Hx Previous Surgery?Y GALLBLADDER WISDOM TEETH MOLE ON BACK EGD/COLON MOLE REMOVED FROM BACK TUBAL LIGATION Family History Family HX Diabetes Yes CAD Yes Hypertension Yes Hyperlipidemia Yes Cancer Yes TB No Social History Smoking Hx Smoker: Never Smoker Tobacco: No Packs/day < 1 Pack Alcohol Alcohol: No Review of Systems All Other Systems Reviewed and Negative ENT ear pain. Physical Exam Vital Signs Vital Signs Date Time Temp Pulse Resp B/P Pulse O2 O2 Flow FiO2 Ox Delivery Rate 05/19 1732 98.4 99 20 122/89 99 General Appearance normal appearance, WD/WN, no apparent distress Ear, Nose, Throat left ear red, TM buldging, right ear red, TM buldging clear Respiratory Status Yes: trachea midline, chest symmetrical, non tender chest. No: respiratory distress. Lung Sounds bilateral: normal breath sounds, lungs clear. Cardiovascular normal exam, regular rate/rhythm, no peripheral edema Neurologic alert, normal exam, oriented x 3 Medical Decision Making LABS/Meds/Orders Pt receiving controlled substance in ED? No Departure Departure Time of Disposition 1741 Disposition DC Home or Self Care(routine) Clinical Impression Primary Impression: Otitis media Qualifiers: Otitis media type: unspecified Laterality: bilateral Qualified Code : H66.93 - Otitis media, unspecified, bilateral Condition STABLE Patient Instructions DI for Otitis Media (Middle Ear Infection)-Child Additional Instructions * Monitor Temp. Tylenol and/or Ibuprofen as needed. ER if fever is no less than 101 despite alternating Tylenol and Ibuprofen Take medication as prescribed Follow up with family doctor Over the counter Motrin or Tylenol as needed for pain Follow up IMMEDIATELY for new or worsening of symptoms OR no noticeable improvement over the next 48-72 hours. 911 immediately for any life threatening symptoms such as chest pain or difficulty breathing Discharge Counseling Counseled pt/family regarding diagnosis, medications/RX, home care, follow up needs Prescriptions Current Visit Scripts Azithromycin (Zithromycin (Z-LORI) 250MG Tab) 250 MG PO DAILY #6 TAB TAKE TWO (2) TABLETS ON DAY 1, THEN ONE (1) TABLET DAY #2 THRU #5 Methylprednisolone (Medrol Dose Lori) 4 MG PO UD #1 LORI TAKE DIRECTED ON PACKAGING Loratadine (Claritin 10MG) 10 MG PO DAILY #30 TAB at 1748
[2017-05-19 17:50] VITALS: BP 122/89
== END 2017-05-19 17:50 | disposition home or self-care (01) ==
LOC: UTC 16:58
DX: H66.93 Otitis media, unspecified, bilateral (principal); K21.9 Gastro-esophageal reflux disease without esophagitis; J45.909 Unspecified asthma, uncomplicated; Z88.0 Allergy status to penicillin; Z88.2 Allergy status to sulfonamides